=== PATIENT | female | born 1940 | race Caucasian/White ===

== ENCOUNTER → 2018-08-02 07:45 | Outpatient (CLI) | payer MEDICARE, OTHER, SELFPAY ==
--- NOTE | 2018-08-02 08:00 | US_ITS ---
US liver HISTORY: ITS.REASON: ELEVATED LIVER ENZYMES ORDERING PHYSICIAN: Jazmine Ceja PATIENT AGE: 78 years COMPARISON: None FINDINGS: PANCREAS:Unremarkable. No obvious mass or abnormal fluid collection. No ductal dilatation LIVER:No focal liver lesions demonstrated. Homogeneous echogenicity. No intrahepatic biliary ductal dilatation evident. There is appropriate direction of blood flow within a nondilated portal vein RIGHT KIDNEY:Unremarkable. Normal size and echogenicity. No hydronephrosis GALLBLADDER:There are gallstones present. No gallbladder wall thickening, pericholecystic fluid, or biliary dilatation evident. Common bile duct is 3 mm. IMPRESSION: Cholelithiasis
== END ==
PROVIDERS: PCP Nurse Practitioner Family; Visit Provider Nurse Practitioner Family
DX: R74.8 Abnormal levels of other serum enzymes (principal)
CPT/HCPCS: 76705

== ENCOUNTER → 2018-11-03 07:51 | Outpatient (CLI) | payer MEDICARE, OTHER, SELFPAY | PROVIDERS: Visit Provider Nurse Practitioner Family | DX: R30.0 Dysuria (principal) | CPT/HCPCS: 87086 ==

== ENCOUNTER → 2018-12-07 08:24 | Outpatient (CLI) | payer MEDICARE, OTHER, SELFPAY ==
--- NOTE | 2018-12-07 08:29 | US_ITS ---
US abdomen limited History:Right upper quadrant abdominal pain and tenderness Ordering Physician:Jazmine Ceja APRN Patient Age: 78 years Comparison:None Findings: Pancreas:Unremarkable. No obvious mass or abnormal fluid collection. No ductal dilatation Liver:Unremarkable. No obvious mass or abnormal fluid collection. No ductal dilatation Right Kidney:Unremarkable. Normal size and echogenicity. No hydronephrosis Gallbladder:Gallbladder is contracted with thickened wall. Small stones are present within the gallbladder. No pericholecystic fluid or biliary dilatation evident. Impression:Cholelithiasis with contracted gallbladder with mildly thickened gallbladder wall.
== END ==
PROVIDERS: PCP Nurse Practitioner Family; Visit Provider Nurse Practitioner Family
DX: R10.11 Right upper quadrant pain (principal); R10.811 Right upper quadrant abdominal tenderness
CPT/HCPCS: 76705

== ENCOUNTER → 2019-04-12 11:03 | Outpatient (POV) | payer MEDICARE, OTHER, SELFPAY ==
[2019-04-12 11:28] VITALS: BP 148/64; PULSE 73; RESP 22; O2SAT 96; BMI 25.7
--- NOTE | 2019-04-12 11:45 | HMH.PMCON ---
Assessment and Plan (1) Compression fracture of L1 vertebra Current visit: Yes Status: Acute Category: Medical Code(s): S32.010A - Wedge compression fracture of first lumbar vertebra, initial encounter for closed fracture We will give the patient a back brace today. We will seek approval for her to be off of her Eliquis for 5 days. We also seek approval for a L1 kyphoplasty. HPI - Data of Consult Patient: new to practice Consult date: 04/12/19 Requesting Physician: Roberto Poon MD Primary Care Provider: Giovani Barajas MD - Consult Narrative Reason for consult: New L1 compression fracture History of present illness: Ms. Ly is a 78 year old female who presents today with a L1 compression fracture. She fell on Wednesday and had a CT scan at [facility] which showed a mild acute compression fracture of the L1 vertebral body. She has increasing back pain since then. She is on Eliquis she is okay by her primary care physician to come off of her Eliquis. Since her CT scan does show a L1 compression fracture and she is unable to have an MRI because of a pacemaker I believe she would benefit from kyphoplasty to the L1 vertebral body. CC: Roberto Poon MD [facility] History I have reviewed the patient's past medical history: Yes Medical History: Reports:: Arrhythmia, Internal Pacemaker Denies:: Cancer, Diabetes Mellitus Type 1, Diabetes Mellitus Type 2, MRSA *Have you ever received a pneumonia vaccine?: No *Have you received a flu vaccine this season?: No Other Surgeries: Yes: Pacemaker Amputation: No Fractures: No - *Social History Alcohol Intake: never *Occupational Status:: retired Housing: house Household Members: other *Travel in the last 8 weeks: None Family Hx:: No significant family history Review of Systems - *Musculoskeletal Reports back pain Meds Home Medications Medication Instructions Recorded Confirmed Type Apixaban [Eliquis 5mg tab] 2.5 mg PO DAILY 04/09/19 04/12/19 History Escitalopram Oxalate 20 mg PO DAILY 04/09/19 04/12/19 History Furosemide [Furosemide 40MG tAB] 40 mg PO BID 04/09/19 04/12/19 History Omeprazole [Omeprazole 40mg 40 mg PO DAILY 04/09/19 04/12/19 History Capsule] Potassium Chloride [Klor-Con M10] 10 meq PO BID 04/09/19 04/12/19 History Sertraline HCl 25 mg PO DAILY 04/09/19 04/12/19 History Oxycodone HCl/Acetaminophen 1 tab PO Q6H PRN 04/12/19 04/12/19 History [Percocet 5/325mg tablet] Allergies Allergy/AdvReac Type Severity Reaction Status Date / Time No Known Allergies Allergy Verified 04/12/19 11:29 Objective Vital signs: Pulse Resp BP Pulse Ox 73 22 148/64 H 96 04/12/19 11:28 04/12/19 11:28 04/12/19 11:28 04/12/19 11:28 - Routine Back/Spine/Pelvis Exam Back/Spine: Present: vertebral tenderness Opioid Risk Tool - CAGE-AID Questionaire Do you feel a need to increase medication use?: No Are you annoyed by criticism?: No Do you feel guilty for using substances?: No Do you use substances to calm or relieve a hangover?: No - Opioid Risk Tool-Female Family hx alcohol abuse: N Family hx illegal drugs: N Family hx rx drug abuse: N Personal hx alcohol abuse: N Personal hx illegal drugs: N Personal hx rx drug abuse: N Age: 45+ Hx of sexual abuse: N Mental health issues-ADD,OCD,Bipolar, etc: N Hx of depression: Y Female Risk Score: 1
--- NOTE | 2019-04-12 11:48 | P.CONS_ITS ---
Assessment and Plan (1) Compression fracture of L1 vertebra Current visit: Yes Status: Acute Category: Medical Code(s): S32.010A - Wedge compression fracture of first lumbar vertebra, initial encounter for closed fracture We will give the patient a back brace today. We will seek approval for her to be off of her Eliquis for 5 days. We also seek approval for a L1 kyphoplasty. HPI - Data of Consult Patient: new to practice Consult date: 04/12/19 Requesting Physician: Roberto Poon MD Primary Care Provider: Giovani Barajas MD - Consult Narrative Reason for consult: New L1 compression fracture History of present illness: Ms. Ly is a 78 year old female who presents today with a L1 compression fracture. She fell on Wednesday and had a CT scan at [facility] which showed a mild acute compression fracture of the L1 vertebral body. She has increasing back pain since then. She is on Eliquis she is okay by her primary care physician to come off of her Eliquis. Since her CT scan does show a L1 compression fracture and she is unable to have an MRI because of a pacemaker I believe she would benefit from kyphoplasty to the L1 vertebral body. CC: Roberto Poon MD [facility] History I have reviewed the patient's past medical history: Yes Medical History: Reports:: Arrhythmia, Internal Pacemaker Denies:: Cancer, Diabetes Mellitus Type 1, Diabetes Mellitus Type 2, MRSA *Have you ever received a pneumonia vaccine?: No *Have you received a flu vaccine this season?: No Other Surgeries: Yes: Pacemaker Amputation: No Fractures: No - *Social History Alcohol Intake: never *Occupational Status:: retired Housing: house Household Members: other *Travel in the last 8 weeks: None Family Hx:: No significant family history Review of Systems - *Musculoskeletal Reports back pain Meds Home Medications Medication Instructions Recorded Confirmed Type Apixaban [Eliquis 5mg tab] 2.5 mg PO DAILY 04/09/19 04/12/19 History Escitalopram Oxalate 20 mg PO DAILY 04/09/19 04/12/19 History Furosemide [Furosemide 40MG tAB] 40 mg PO BID 04/09/19 04/12/19 History Omeprazole [Omeprazole 40mg 40 mg PO DAILY 04/09/19 04/12/19 History Capsule] Potassium Chloride [Klor-Con M10] 10 meq PO BID 04/09/19 04/12/19 History Sertraline HCl 25 mg PO DAILY 04/09/19 04/12/19 History Oxycodone HCl/Acetaminophen 1 tab PO Q6H PRN 04/12/19 04/12/19 History [Percocet 5/325mg tablet] Allergies Allergy/AdvReac Type Severity Reaction Status Date / Time No Known Allergies Allergy Verified 04/12/19 11:29 Objective Vital signs: Pulse Resp BP Pulse Ox 73 22 148/64 H 96 04/12/19 11:28 04/12/19 11:28 04/12/19 11:28 04/12/19 11:28 - Routine Back/Spine/Pelvis Exam Back/Spine: Present: vertebral tenderness Opioid Risk Tool - CAGE-AID Questionaire Do you feel a need to increase medication use?: No Are you annoyed by criticism?: No Do you feel guilty for using substances?: No Do you use substances to calm or relieve a hangover?: No - Opioid Risk Tool-Female Family hx alcohol abuse: N Family hx illegal drugs: N Family hx rx drug abuse: N Personal hx alcohol abuse: N Personal hx illegal drugs: N Personal hx rx drug abuse: N Age: 45+ Hx of sexual a
== END ==
PROVIDERS: PCP Internal Medicine Adolescent Medicine; Visit Provider Anesthesiology
DX: S32.010A Wedge compression fracture of first lumbar vertebra, initial encounter for closed fracture (principal)
CPT/HCPCS: 99202

== ENCOUNTER → 2019-05-08 11:00 | Outpatient (POV) | payer MEDICARE, OTHER, SELFPAY ==
[2019-05-08 11:22] VITALS: BP 115/82; PULSE 94; RESP 18; O2SAT 98; BMI 37.6
--- NOTE | 2019-05-08 11:29 | HMH.PAINSOAP ---
[facility] Pain Management SOAP Note Subjective:: Patient is a pleasant 78-year-old white female who presents today for follow-up after an L1 compression fracture with kyphoplasty. Patient says she fell in her home and hit a TV with her spine. She says she developed severe back pain following the fall. She underwent a kyphoplasty for the fracture. She rates her pain a 10 out of 10 today. Patient was on Eliquis and did hold her anticoagulation for 5 days. Patient is continuing to wear her back brace and does have it on today. She says that her pain is in her low back area. She denies any recent trauma or falls. She says the pain is worse with standing and walking. She says the pain is a different type of pain than what she was experiencing with her first visit. She says her pain is somewhat relieved when she is sitting. Patient also complains of severe nausea and vomiting since her kyphoplasty. She says she is been unable to keep any food down over the last couple of days. She is unable to follow-up with her primary care provider until May 17. She is attempting a home stretching program, but says that her pain is severe. Review of Systems General: No recent weight changes, no fever, no sleep disturbances Respiratory: No cough, no shortness of air, no recurring pulmonary infections Cardiovascular/peripheral vascular: No chest pain, no palpitations, no edema, no shortness of breath Gastrointestinal: No new onset incontinence, normal bowel movements reported Genitourinary: No new onset incontinence Musculoskeletal: Low back pain Psychiatric: Normal mood/affect Neurological: [Denies weakness in extremities], [denies balance issues] Objective:: Physical exam General: Alert and oriented x3, no acute distress, pleasant and cooperative, [on room air] Lungs: Respirations even and unlabored, symmetrical chest expansion Eyes: PERRL Musculoskeletal: Flexion and extension of lumbar spine somewhat guarded secondary to pain, deep tendon reflexes normal, strength in upper and lower extremities [5/5], [abnormal gait noted] Neurological: Speech clear, mat linker equal, no gross sensory deficit Assessment:: L1 compression fracture, low back pain Plan:: Given the patient's symptoms, I think she would benefit from an L4-L5 lumbar epidural steroid injection. She is on anticoagulation therapy. She does understand she will need to hold Eliquis. She is in agreement. The patient was able to hold the medication for the kyphoplasty per her clinical analyst. She will continue with a home stretching program. We will see her back in the clinic following the steroid injection to reassess her symptoms. The patient has been instructed to contact the clinic if she has any concerns before her next appointment. We will also order the patient Zofran 4 mg 1 tablet p.o. twice daily for [address] Poon has reviewed this note and agrees with this plan of care. This note was dictated using voice recognition software and make contain errors or omissions. [facility] History I have reviewed the patient's past medical history: Yes Medical History: Reports:: Anxiety, Arrhythmia, Asthma, Depression, Gastroesophageal Reflux Disease(GERD), Hyperlipidemia, Hypertension, Internal Pacemaker (AICD) Denies:: Cancer, Diabetes Mellitus Type 1, Diabetes Mellitus Type 2, MRSA, Seizures *Have you ever received a pneumonia vaccine?: Yes *Have you received a flu vaccine this season?: Yes Other Medical History: Denies: Blood Transfusion Reaction Other Surgeries: Yes: Pacemaker (AICD) Amputation: No Fractures: Yes - *Social History Smoking Status: Never smoker Alcohol Intake: never Substance Use Type: denies use *Occupational Status:: other Housing: house Household Members: other *Travel in the last 8 weeks: None - Psychiatric History Pschychiatric History:: Reports:: Anxiety, Depression Family Hx:: Non-contributory
== END ==
PROVIDERS: PCP Internal Medicine Adolescent Medicine; Visit Provider Clinical Nurse Specialist Family Health
DX: S32.010A Wedge compression fracture of first lumbar vertebra, initial encounter for closed fracture (principal)
CPT/HCPCS: 99212

== ENCOUNTER → 2019-06-05 14:02 | Outpatient (POV) | payer MEDICARE, OTHER, SELFPAY ==
[2019-06-05 14:34] VITALS: BP 121/75; PULSE 114; RESP 18; O2SAT 99; BMI 23.8
--- NOTE | 2019-06-05 15:46 | HMH.PAINSOAP ---
[facility] Pain Management SOAP Note Subjective:: Patient is a pleasant 79-year-old white female who presents today for follow-up. Patient had a compression fracture which was treated with a kyphoplasty. Patient still having 10 out of 10 pain. Patient has had epidural injections with no relief. Patient and I had an extremely long discussion in regards to intrathecal pain pump therapy and she would like to move forward with this. Patient's not on any anticoagulation therapy. We will obtain a psych evaluation in regards to her pain. Patient is trying to stay as mobile as possible. She is continuing to wear her back brace and continuing physical therapy. ROS General: no recent weight change, no fever, no sleep disturbances Respiratory: no cough, no shortness of air, no recurring pulmonary infections Cardiovascular/Peripheral Vascular: No chest pain, No palpitations, no edema, no shortness of breath. Gastrointestinal: no new onset incontinence, normal bowel movements reported Genitourinary: no new onset incontinence Musculoskeletal: Back pain Psychiatric: Flat affect Neurological: [denies new onset weakness in extremities], [denies new onset balance issues] Objective:: Physical Exam General: Alert and oriented x3, no acute distress, pleasant and cooperative, [on room air] Lungs: Resps E/U, Symmetrical chest expansion, Eyes: PERRL Musculoskeletal: Flexion and extension of lumbar spine somewhat guarded secondary to pain, deep tendon reflexes normal, strength in upper and lower extremities [5/5], [abnormal gait noted] Neurological: speech clear, roaster helper equal, no gross sensory deficits Assessment:: Chronic compression fractures, osteoporosis, degenerative disc disease Plan:: We will send her for psychological evaluation to determine if she is a candidate for intrathecal therapy. We will move forward with an intrathecal pain pump trial soon as possible. I will follow-up with her after this reassess her symptoms at that time she has been instructed to call the office if she has any issues or questions. Patient was given literature in regards to the therapy. Dr. Poon has reviewed this note and agrees with this plan of care. This note was dictated using voice recognition software and may contain errors or omissions [facility] History I have reviewed the patient's past medical history: Yes Medical History: Reports:: Anxiety, Arrhythmia, Asthma, Depression, Gastroesophageal Reflux Disease(GERD), Hyperlipidemia, Hypertension, Internal Pacemaker (AICD) Denies:: Cancer, Diabetes Mellitus Type 1, Diabetes Mellitus Type 2, MRSA, Seizures *Have you ever received a pneumonia vaccine?: Yes *Have you received a flu vaccine this season?: Yes Other Medical History: Denies: Blood Transfusion Reaction Other Surgeries: Yes: Pacemaker (AICD) Amputation: No Fractures: No - *Social History Smoking Status: Never smoker Alcohol Intake: never Substance Use Type: denies use *Occupational Status:: other Housing: house Household Members: other *Travel in the last 8 weeks: None - Psychiatric History Pschychiatric History:: Reports:: Anxiety, Depression Family Hx:: No significant family history
== END ==
PROVIDERS: PCP Internal Medicine Adolescent Medicine; Visit Provider Clinical Nurse Specialist Family Health
DX: Z95.0 Presence of cardiac pacemaker (principal); M81.0 Age-related osteoporosis without current pathological fracture; E78.5 Hyperlipidemia, unspecified; I10 Essential (primary) hypertension; J45.909 Unspecified asthma, uncomplicated; S32.010A Wedge compression fracture of first lumbar vertebra, initial encounter for closed fracture
CPT/HCPCS: 99212

== ENCOUNTER → 2019-07-12 12:56 | Outpatient (CLI) | payer MEDICARE, OTHER, SELFPAY ==
--- NOTE | 2019-07-12 12:59 | CT_ITS ---
PROCEDURE: CT CHEST WO CON CLINICAL INDICATION: LUNG NODULE Lung nodule COMPARISON: CT ABDOMEN PELVIS W CON from 04/16/2019 TECHNIQUE: Axial images obtained with sagittal and coronal reformats. All CT scans at the facility use one or more dose reduction, viz: automated exposure control, ma/kV adjustment per patient size (including targeted exams where dose is matched to indication, i.e. head), or iterative reconstruction technique. FINDINGS: HEART AND MEDIASTINAL STRUCTURES: Cardiac pacemaker device is. There are few scattered small mediastinal nodes. There is a right paraesophageal node 1.1 cm. Previously noted thickened esophagus has somewhat improved. There is mild thickening of the esophagus at the GE junction with small hiatal hernia. LUNGS AND PLEURAL SPACES: There are numerous small noncalcified pulmonary nodules which are 4 mm or less the. There is a 12 mm nodule in the left lower lobe posteriorly with central cavitation not significantly changed. There is a lingular nodule which appears partially calcified. No effusions. No infiltrates BONY STRUCTURES: There wedge compressive changes involving L1 with increased density along the lower aspect consistent with prior vertebroplasty. UPPER ABDOMEN: There are gallstones present with at least 2 stones noted in the region of the neck of the gallbladder ADDITIONAL FINDINGS: No other significant abnormalities. IMPRESSION: 1. Interval improvement in esophageal thickening with some residual thickening at the GE junction with a small hiatal hernia. No change in the mildly prominent right paraesophageal lymph node 2. Scattered small pulmonary nodules. 12 mm nodule with central cavitation in the left lower lobe posteriorly not significantly changed. Suggest 6 month follow-up 3. Cholelithiasis Dictated by: Kelvin Sanders MD 07/13/2019 11:32 Electronically signed by Kelvin Sanders MD in [place] 07/13/2019 11:32
== END ==
PROVIDERS: PCP Internal Medicine Adolescent Medicine; Visit Provider Internal Medicine Adolescent Medicine
DX: R91.1 Solitary pulmonary nodule (principal)
CPT/HCPCS: 71250

== ENCOUNTER → 2019-09-18 13:20 | Outpatient (CLI) | payer MEDICARE, OTHER, SELFPAY ==
[2019-10-10 16:08] LABS: Covid-19 Nasal PCR Sendout Lex NOT DETECTED
== END ==
PROVIDERS: Visit Provider Anesthesiology
DX: Z03.818 Encounter for observation for suspected exposure to other biological agents ruled out (principal)
CPT/HCPCS: U0004

== ENCOUNTER 2019-09-20 09:17 | Day surgery (SDC) | payer MEDICARE, OTHER, SELFPAY ==
[2019-09-20] VITALS (7 sets, daily range): BP systolic 107–156; BP diastolic 70–99; PULSE 85–113; RESP 18–20; O2SAT 94–98; BMI 28.0
--- NOTE | 2019-09-20 10:32 | HMH.PMPROC ---
- Procedure Date: 09/20/19 Time: 10:32 Anesthesiologist:: Roberto Poon MD Complications:: None Pre-procedure Diagnosis:: Degenerative disc disease of lumbar spine with lumbar radiculopathy symptoms and compression fractures of the lumbar spine Post-procedure Diagnosis:: Same Indications for Procedure:: Patient is a pleasant 79-year-old white female who we are treating for low back pain with lumbar radicular symptoms and compression fracture stress lumbar spine. She has failed all previous conservative therapy including injections she has had a previous kyphoplasty however she still has compression fractures throughout the lumbar spine. She has had a successful psychological evaluation. We will do a intrathecal pump trial today to help her with her continued back pain. Procedure Details:: Pain pump trial Informed consent was obtained and the risk and benefits of the procedure was explained to the patient. The patient was taken to the procedure room and placed prone on the procedure table. Patient was prepped and draped in sterile fashion. C-arm fluoroscopy was used to view the lumbar spine. The skin and subcutaneous tissues were anesthetized using lidocaine. I placed a 18-gauge spinal needle into the L4-5 interspace and advanced until clear CSF was obtained. After this intrathecal catheter was inserted and advanced very easily to the L1 vertebral body. The needle was withdrawn. We were able to freely withdraw clear CSF through the catheter. We then injected intrathecal fentanyl single shot bolus of 25 mcg followed by saline and followed by the previous CSF that was withdrawn. The needle and catheter were then removed and a Band-Aid was placed. Patient tolerated the procedure well with no complications. We reevaluated the patient after 30 minutes to 1 hour. She was also reassessed by physical therapy. She had 80 to 90% relief in her pain symptoms. She is much more functional. She did very well she was to proceed with permanent placement. She had no side effects with intrathecal fentanyl. We will plan on permanent placement with intrathecal morphine 5 mg/mL to start at 0.25 mg/day. Plan and Disposition:: Plan and disposition: We will plan on permanent placement the intrathecal pain pump. We will have her see Dr. harley johnson for evaluation of permanent placement. This will be with intrathecal morphine 5 mg per mall to start at 0.25 mg/day. Lead tip will be at the L1 vertebral body.
== END 2019-09-20 11:56 | disposition home or self-care (01) ==
LOC: SC.PAINP 09:20
PROVIDERS: PCP Internal Medicine Adolescent Medicine; Visit Provider Anesthesiology
DX: M51.16 Intervertebral disc disorders with radiculopathy, lumbar region (principal); S32.010A Wedge compression fracture of first lumbar vertebra, initial encounter for closed fracture; I10 Essential (primary) hypertension; J45.909 Unspecified asthma, uncomplicated; F32.9 Major depressive disorder, single episode, unspecified; E78.5 Hyperlipidemia, unspecified; I48.91 Unspecified atrial fibrillation
CPT/HCPCS: 62323

== ENCOUNTER → 2019-09-25 07:58 | Outpatient (CLI) | payer MEDICARE, OTHER, SELFPAY ==
[2019-09-25 08:27] LABS: Basophils % 0.7 % (0.1-2.0); Eosinophils # 0.2 K/mm3 (0.0-0.4); Eosinophils % 3.8 % (0.1-12.0); Hematocrit 43.6 % (37.0-47.0); Hemoglobin 14.5 g/dL (12.2-16.2); Lymphocytes # 2.2 K/mm3 (0.7-4.5); Lymphocytes % 42.7 % (10-50); Mean Corpuscular HGB Conc 33.1 g/dL (31.8-35.4); Mean Corpuscular Hemoglobin 28.6 pg (27.0-31.2); Mean Corpuscular Volume 86.3 fl (81-99); Mean Platelet Volume 7.5 fl (7.4-10.4); Monocytes # 0.4 K/mm3 (0.1-1.0); Neutrophils # 2.4 K/mm3 (1.8-7.8); Neutrophils % 45.8 % (37.0-80.0); Platelet Count 216 K/mm3 (142-424); Red Blood Count 5.05 M/mm3 (4.20-5.40); Red Cell Distribution Width 13.4 % (11.5-17.5); White Blood Count 5.2 K/mm3 (4.8-10.8)
[2019-09-25 08:58] LABS: Chloride 105 mmol/L (98-107); Potassium 3.8 mmoL/L (3.5-5.1); Sodium 138 mmol/L (136-145)
[2019-09-25 09:01] LABS: Anion Gap 13.8 mEq/L (5-15); Blood Urea Nitrogen 16 mg/dl (7-17); Carbon Dioxide 23 mmol/L (22.0-30.0); Estimated Glomerular Filt Rate 70 ml/min (>60); GFR (African American) 84 ML/MIN (>60); Glucose 95 mg/dl (74-100)
[2019-09-27 11:01] LABS: Covid-19 Nasal PCR Sendout Lex NOT DETECTED
== END ==
PROVIDERS: Visit Provider Anesthesiology
DX: Z01.818 Encounter for other preprocedural examination (principal); M51.36 Other intervertebral disc degeneration, lumbar region
CPT/HCPCS: 36415; 80048; 85025; U0004

== ENCOUNTER 2019-09-27 09:48 | Day surgery (SDC) | payer MEDICARE, OTHER, SELFPAY ==
--- NOTE | 2019-09-22 13:15 | SUR.PREOP ---
09/22/2019 @ 6279--PHONE CALL MADE TO PATIENT. PATIENT UNDERSTANDS THAT LAB WORK AND COVID TESTING NEEDS TO BE COMPLETED @ 0800 ON 09/25/2019. PATIENT UNDERSTANDS IF LAB WORK AND COVID-19 TESTS ARE NOT COMPLETED BY 12PM ON THAT DATE, THE SURGERY SCHEDULED WILL BE CANCELLED AND RESCHEDULED FOR ANOTHER TIME.
[2019-09-27] VITALS (9 sets, daily range): BP systolic 121–152; BP diastolic 65–92; PULSE 83–131; RESP 16–18; TEMP 36.8–37.1; O2SAT 93–94; BMI 28.0
--- NOTE | 2019-09-27 12:20 | HMH.PMCON ---
Assessment and Plan - Assessment and plan all Dx Assessment and Plan for all problems:: Impression-degenerative disc disease lumbar spine with radiculopathy, multiple compression fractures Plan-placement of intrathecal pain pump system today HPI - Data of Consult Patient: new to practice Consult date: 09/27/19 Requesting Physician: Roberto Poon MD Primary Care Provider: Giovani Barajas MD - Consult Narrative Reason for consult: Back pain History of present illness: Ms. Ly is a 79 year old female with chronic back pain who is also had compression fractures who is had attempts at back pain improvement over the years. He had a intrathecal pain pump trial with success and she is coming in for placement of that system CC: Roberto Poon MD [facility] History Medical History: Reports:: Anxiety, Arrhythmia, Asthma, Depression, Gastroesophageal Reflux Disease(GERD), Hyperlipidemia, Hypertension, Internal Pacemaker Denies:: Cancer, Diabetes Mellitus Type 1, Diabetes Mellitus Type 2, MRSA, Seizures *Have you ever received a pneumonia vaccine?: Yes *Have you received a flu vaccine this season?: Yes Other Medical History: Denies: Blood Transfusion Reaction Comment:: Illnesses-GERD, depression, asthma, irregular heartbeat, degenerative disc disease lumbar spine Other Surgeries: Yes: Pacemaker Amputation: No Fractures: Yes (lumbar) Comment: Pacemaker, ileal conduit, hysterectomy - *Social History Educational Level: Completed Grade School Smoking Status: Never smoker Alcohol Intake: never Substance Use Type: denies use *Occupational Status:: retired Housing: house Household Members: family *Travel in the last 8 weeks: None - Psychiatric History Pschychiatric History:: Reports:: Anxiety, Depression Family Hx:: No significant family history Review of Systems - Review of Systems Review of systems:: pertinent systems reviewed and negative unless documented below Meds Home Medications Medication Instructions Recorded Confirmed Type Apixaban [Eliquis 5mg tab] 2.5 mg PO DAILY 04/09/19 09/27/19 History Escitalopram Oxalate 20 mg PO DAILY 04/09/19 09/27/19 History Furosemide [Furosemide 40MG tAB] 40 mg PO BID 04/09/19 09/27/19 History Omeprazole [Omeprazole 40mg 40 mg PO DAILY 04/09/19 09/27/19 History Capsule] Potassium Chloride [Klor-Con M10] 10 meq PO BID 04/09/19 09/27/19 History Sertraline HCl 25 mg PO DAILY 04/09/19 09/27/19 History Oxycodone HCl/Acetaminophen 1 tab PO Q6H PRN 04/12/19 09/27/19 History [Percocet 5/325mg tablet] Psyllium Husk/Aspartame [Metamucil 3.4 gm PO BID 04/21/19 09/27/19 History Fiber Singles Packet] Allergies Allergy/AdvReac Type Severity Reaction Status Date / Time No Known Allergies Allergy Verified 09/26/19 09:35 Objective Vital signs: Temp Pulse Resp BP Pulse Ox 98.2 F 93 H 18 150/71 H 94 L 09/27/19 10:49 09/27/19 10:49 09/27/19 10:49 09/27/19 10:49 09/27/19 10:49 no acute distress Comments: Elderly white female in no distress - *Routine Respiratory Exam Present: decreased breath sounds, CTA bilaterally - *Routine Cardiovascular Exam Present: RRR - *Routine Abdominal Exam Present: soft
--- NOTE | 2019-09-27 13:05 | HMH.ANESCL ---
[facility] Anesthesia Checklist - Patient Identification Patient Identification: Arm Band, Verbal (Name & ) - Structural Data Admitted From: Home Planned Operative Procedure/s: Placement of IT pain pump generator and catheter Consent for Planned Operative Procedure(s) Verified: Yes Verified Documents: Surgical Consent, History and Physical - NPO Status Verified Time NPO: 18:00 - Chart Verification Results Verified: CBC (Covid negative), BMP - Additional verifications Anesthesia Reactions: No Hx Blood Transfusions: No Blood Transfusion Reaction: No - Airway Assessment C-Spine Mobility Assessed: Yes (limited neck ROM) TMJ Mobility Assessed: Yes Dentition: Edentulous - Neurological Assessment Level of Consciousness: Awake, Alert, Appropriate, Follows Commands Hx Seizures: No Numbness or tingling in extremities: No - Anesthesia Plan Anesthesia Risk discussed: Yes Anesthesia Plan: Verified ASA Class: III Anesthesia Type: MAC [facility] History I have reviewed the patient's past medical history: Yes Medical History: Reports:: Anxiety, Arrhythmia, Asthma, Depression, Gastroesophageal Reflux Disease(GERD), Hyperlipidemia, Hypertension, Internal Pacemaker Denies:: Cancer, Diabetes Mellitus Type 1, Diabetes Mellitus Type 2, MRSA, Seizures *Have you ever received a pneumonia vaccine?: Yes *Have you received a flu vaccine this season?: Yes Other Medical History: Denies: Blood Transfusion Reaction Comment:: Chronic back pain, YESENIA Anesthesia experience/problems:: none Other Surgeries: Yes: Hysterectomy-Total, Pacemaker, Other (lumbar sx) Amputation: No Fractures: Yes (lumbar) - *Social History Educational Level: Completed Grade School Smoking Status: Never smoker Alcohol Intake: never Substance Use Type: denies use *Occupational Status:: retired Housing: house Household Members: family *Travel in the last 8 weeks: None - Psychiatric History Pschychiatric History:: Reports:: Anxiety, Depression Family Hx:: No significant family history
--- NOTE | 2019-09-27 13:54 | ECG_ITS ---
APPROVED REPORT Exam: Resting ECG HR:115 bpm ECG Measurements Heart Rate 115 AXES QRSd 62 QRS 96 QT 314 T 106 QTc 434 <Conclusion> Atrial fibrillation with rapid ventricular response with premature ventricular or aberrantly conducted complexes Rightward axis Low voltage QRS Cannot rule out Anterior infarct, age undetermined Abnormal ECG Electronically signed by : Giovani Barajas, 09/28/2019 21:39:38
--- NOTE | 2019-09-27 14:25 | CA_ITS ---
APPROVED REPORT EXAM: Comprehensive 2D, Doppler, and color-flow Echocardiogram Environmental Health Officer: Palmira Luna RVT Ht: 4 ft 10 in Wt: 134lbs BSA: 1.54 BP: 134/85 mmHg Indications: A-FIB,HTN,HLD,PACER,GERD,ASTHMA 2D Dimensions LVOT 1.86 cm (M/F) 1.5-2.5 M-Mode Dimensions RVDd 2.01 cm (0.9-2.6) LVDd 4.08 cm (3.5-5.7) LVDs 2.94 cm (3.5-5.7) IVSd 0.61 cm (0.6-1.1) PWd 0.47 cm (0.6-1.1) EF (Teich) 54.60% FS 27.90% EDV (Teich) 73.40 mL ESV (Teich) 33.30 mL Left Ventricle Left atrium is mildly enlarged, left ventricle is normal size, mild concentric left ventricular hypertrophy, there is abnormal septal motion, visually estimated ejection fraction 50% with no regional wall motion abnormality, diastolic parameters are inconclusive. Right Ventricle Right atrium and right ventricle are normal size and contractility, there is a pacemaker lead seen in the right atrium and right ventricle. Aortic Valve Aortic valve is minimally thickened and fibrosed, leaflet continue to display mobility. Mitral Valve Mitral valve leaflets are minimally thickened, there is no mitral stenosis. There is mild mitral regurgitation. Tricuspid Valve Tricuspid valve is grossly normal, there is mild tricuspid regurgitation, tricuspid regurgitation jet velocity is inadequate for calculation of the right ventricular systolic pressure. Pulmonic Valve Pulmonic valve is poorly visualized. Great Vessels Aortic root is normal size. Pericardium No significant pericardial effusion noted. Conclusion 1. Mildly enlarged left atrium, normal left ventricular size, mild concentric left ventricular hypertrophy, visually estimated ejection fraction 50%, there is abnormal septal motion. Diastolic parameters are inconclusive. 2. Mild mitral and tricuspid regurgitation. 3. No significant pericardial effusion noted. Electronically signed by : Mahamed Bryan, 09/28/2019 13:57:40
--- NOTE | 2019-09-27 14:27 | HMH.PAINSOAP ---
[facility] Pain Management SOAP Note Subjective:: Patient was taken to the OR and found to be in atrial fibrillation with a rapid ventricular response of heart rate of 130s to 140s. Surgery was canceled. Patient has been off of her Eliquis since last Wednesday. She was brought to recovery and cardiology was consulted. Plan:: We will consult cardiology and postpone her surgery until she is more stable. She can restart her Eliquis. [facility] History Medical History: Reports:: Anxiety, Arrhythmia, Asthma, Depression, Gastroesophageal Reflux Disease(GERD), Hyperlipidemia, Hypertension, Internal Pacemaker Denies:: Cancer, Diabetes Mellitus Type 1, Diabetes Mellitus Type 2, MRSA, Seizures *Have you ever received a pneumonia vaccine?: Yes *Have you received a flu vaccine this season?: Yes Other Medical History: Denies: Blood Transfusion Reaction Anesthesia experience/problems:: none Other Surgeries: Yes: Hysterectomy-Total, Pacemaker, Other (lumbar sx) Amputation: No Fractures: Yes (lumbar) - *Social History Educational Level: Completed Grade School Smoking Status: Never smoker Alcohol Intake: never Substance Use Type: denies use *Occupational Status:: retired Housing: house Household Members: family *Travel in the last 8 weeks: None - Psychiatric History Pschychiatric History:: Reports:: Anxiety, Depression Family Hx:: No significant family history
--- NOTE | 2019-09-27 14:36 | SUR.PHASEII ---
REPORT GIVEN TO LULY TEJADA RN.
--- NOTE | 2019-09-27 15:04 | SUR.PHASEII ---
1354 - R ASAD BASKET BOTTOM MACHINE OPERATOR AT BEDSIDE, CASE WAS CANCELLED DUE TO AFIB, ORDERS RECEIVED TO GET EKG FOR AFIB. 1358 RESPIRATORY AT BEDSIDE FOR EKG 1404 - DR COLVIN REVIEWED EKG. ORDERS RECEIVED TO CONSULT CARDIOLOGY FOR AFIB R/V 1408 - CARIOLOGY NOTIFIED OF CONSULT. 1418 - BRITT OLIVAREZ AT BEDSIDE ASSESSING PT. EKG REVIEWED. ORDERS RECEIVED FOR ECHO. R/V 1455 - RADIOLOGY SCHEDULER AT BEDSIDE FOR ECHO 1456 - DR COLVIN NOTIFIED PT WANTING SOMETHING FOR HEADACHE. ORDERS RECEIVED TO CHECK WITH CARDIOLOGY.
--- NOTE | 2019-09-27 15:06 | SUR.PHASEII ---
1502 - BRITT OLIVAREZ NOTIFIED THAT PT WANTING SOMETHING FOR HEADACHE. ORDERS RECEIVED FOR TYLENOL 500MG PO X1 NOW. R/V
--- NOTE | 2019-09-27 15:29 | HMH.CNCARD ---
History of Present Illness Consult date: 09/27/19 Requesting physician: Roberto Poon Consult reason: atrial fibrillation Chief complaint: Palpitations Additional Medical History:: 1. Atrial fibrillation 2. Long-term anticoagulation 3. GERD 4. Hyper lipidemia 5. depression/anxiety 6. chronic pain History of present illness: This is a 79-year-old white female who came into the hospital today to undergo an IT pain pump generator and catheter placement. When they took the patient back to the OR she was found to be in atrial fibrillation with RVR. Her heart rate was in the 130s and 140s. Her surgery was canceled and she was taken to the postop recovery area. The patient does state that she can feel palpitations and her heart racing. She states that this typically happens when she gets anxious. She does have a history of atrial fibrillation. It is unclear whether this is paroxysmal or chronic and she cannot answer that question for me. She does tell me that she takes Eliquis as a blood thinner for her atrial fibrillation. She is not on any rate control medications per the medicine list that she has provided us here at the hospital. Her boyfriend is with her today as well and he is unable to give me any further information. He states that he knows she has atrial fibrillation but he is also unsure whether or not she is chronically in atrial fibrillation or if it just comes and goes. She denies any chest pain or pressure. She denies any shortness of breath or edema. She denies any fever, chills, nausea, vomiting, diarrhea, PND or orthopnea. The patient does see a paramedic supervisor regularly Dr. Ramirez, [facility]. She has been holding her Eliquis for placement of her pain pump. While I am in the room with the patient her heart rate is anywhere from 76 to about 90 bpm and she remains in atrial fibrillation. [facility] [place] History I have reviewed the patient's past medical history: Yes Medical History: Reports:: Anxiety, Arrhythmia, Asthma, Depression, Gastroesophageal Reflux Disease(GERD), Hyperlipidemia, Hypertension, Internal Pacemaker Denies:: Cancer, Diabetes Mellitus Type 1, Diabetes Mellitus Type 2, MRSA, Seizures *Have you ever received a pneumonia vaccine?: Yes *Have you received a flu vaccine this season?: Yes Other Medical History: Denies: Blood Transfusion Reaction Anesthesia experience/problems:: none Other Surgeries: Yes: Hysterectomy-Total, Pacemaker, Other (lumbar sx) Amputation: No Fractures: Yes (lumbar) - *Social History Educational Level: Completed Grade School Smoking Status: Never smoker Alcohol Intake: never Substance Use Type: denies use *Occupational Status:: retired Housing: house Household Members: family *Travel in the last 8 weeks: None - Psychiatric History Pschychiatric History:: Reports:: Anxiety, Depression Family Hx:: No significant family history Meds Home Medications Medication Instructions Recorded Confirmed Type Apixaban [Eliquis 5mg tab] 2.5 mg PO DAILY 04/09/19 09/27/19 History Escitalopram Oxalate 20 mg PO DAILY 04/09/19 09/27/19 History Furosemide [Furosemide 40MG tAB] 40 mg PO BID 04/09/19 09/27/19 History Omeprazole [Omeprazole 40mg 40 mg PO DAILY 04/09/19 09/27/19 History Capsule] Potassium Chloride [Klor-Con M10] 10 meq PO BID 04/09/19 09/27/19 History Sertraline HCl 25 mg PO DAILY 04/09/19 09/27/19 History Oxycodone HCl/Acetaminophen 1 tab PO Q6H PRN 04/12/19 09/27/19 History [Percocet 5/325mg tablet] Psyllium Husk/Aspartame [Metamucil 3.4 gm PO BID 04/21/19 09/27/19 History Fiber Singles Packet] Allergies Allergy/AdvReac Type Severity Reaction Status Date / Time No Known Allergies Allergy Verified 09/26/19 09:35 Review of Systems - Review of Systems Review of systems:: pertinent systems reviewed and negative unless documented below - *Cardiovascular Reports rapid, pounding, or irregular heartbeat - *Musculoskeletal Reports back pain - *Neuro
== END 2019-09-27 16:19 | disposition home or self-care (01) ==
LOC: OR 09:49
PROVIDERS: PCP Internal Medicine Adolescent Medicine; Visit Provider Anesthesiology
DX: M51.16 Intervertebral disc disorders with radiculopathy, lumbar region (principal); S32.010A Wedge compression fracture of first lumbar vertebra, initial encounter for closed fracture; Z53.8 Procedure and treatment not carried out for other reasons; Z79.01 Long term (current) use of anticoagulants; I10 Essential (primary) hypertension; I49.9 Cardiac arrhythmia, unspecified; E78.5 Hyperlipidemia, unspecified; I48.91 Unspecified atrial fibrillation; K21.9 Gastro-esophageal reflux disease without esophagitis; Z95.0 Presence of cardiac pacemaker; J45.909 Unspecified asthma, uncomplicated; F41.9 Anxiety disorder, unspecified; R00.2 Palpitations
CPT/HCPCS: 62350; 62362; 93005; 93306; 96374; J2704; J3370

== ENCOUNTER → 2019-10-05 08:52 | Outpatient (POV) | payer MEDICARE, OTHER, SELFPAY ==
--- NOTE | 2019-10-05 09:14 | HMH.PAINSOAP ---
[facility] Pain Management SOAP Note Subjective:: Patient is a pleasant 79-year-old white female who presents today for follow-up. She was scheduled to undergo an intrathecal pain pump implant, however, prior to surgery patient was noted to be in atrial fibrillation with RVR. As a result, surgery was canceled. Patient had been off of her Eliquis prior to the procedure. She was brought to recovery and cardiology was consulted patient is here today because she has been aware that her follow-up appointment will be canceled since surgery was also canceled. Patient says that she is scheduled to follow-up with cardiology today. Patient was started on diltiazem 180 mg 1 tablet p.o. twice daily. She says that she is not having any shortness of breath, no chest pain, no increased heart rate. She says that she feels fine, except for pain.. She rates her pain 8 out of 10. Patient's pain is mostly in her low back area today. Review of Systems General: No recent weight changes, no fever, no sleep disturbances Respiratory: No cough, no shortness of air, no recurring pulmonary infections Cardiovascular/peripheral vascular: No chest pain, no palpitations, no edema, no shortness of breath Gastrointestinal: No new onset incontinence, normal bowel movements reported Genitourinary: No new onset incontinence Musculoskeletal: Low back pain Psychiatric: Normal mood/affect Neurological: [Denies weakness in extremities], [denies balance issues] Objective:: Physical exam General: Alert and oriented x3, no acute distress, pleasant and cooperative, [on room air] Lungs: Respirations even and unlabored, symmetrical chest expansion Eyes: PERRL Musculoskeletal: Flexion and extension of lumbar spine somewhat guarded secondary to pain, deep tendon reflexes normal, strength in upper and lower extremities [5/5], [abnormal gait noted] Neurological: Speech clear, lpn rn hospice equal, no gross sensory deficit Assessment:: Degenerative disc disease lumbar spine with lumbar radiculopathy symptoms Plan:: We will follow-up with the patient after cardiology clears the patient for surgery. We will reviewed cardiology notes and determine a further plan of care. If she is cleared for surgery, we will plan to reschedule the patient in October. Patient has been instructed to contact clinic if she has any concerns before next plan. The patient and I specifically discussed risk factors for COVID19. These risks include, but are not limited to age greater than 60, heart or lung disease, diabetes, immunosuppression, and travel. We also discussed NSAIDs may worsen COVID19 infection or symptoms. Patient should not use NSAIDs to treat COVID19 signs or symptoms. Patient was also informed that any type of corticosteroid of any form (oral or injection) will decrease the patient's immune system response and may increase the likelihood of COVID19 infection and symptoms. [facility] History I have reviewed the patient's past medical history: Yes Medical History: Reports:: Anxiety, Arrhythmia, Asthma, Depression, Gastroesophageal Reflux Disease(GERD), Hyperlipidemia, Hypertension, Internal Pacemaker Denies:: Cancer, Diabetes Mellitus Type 1, Diabetes Mellitus Type 2, MRSA, Seizures *Have you ever received a pneumonia vaccine?: Yes *Have you received a flu vaccine this season?: Yes Other Medical History: Denies: Blood Transfusion Reaction Other Surgeries: Yes: Hysterectomy-Total, Pacemaker, Other (lumbar sx) Amputation: No Fractures: Yes (lumbar) - *Social History Smoking Status: Never smoker Alcohol Intake: never Substance Use Type: denies use *Occupational Status:: retired Housing: house Household Members: family *Travel in the last 8 weeks: Inside the [place] - Psychiatric History Pschychiatric History:: Reports:: Anxiety, Depression Family Hx:: No significant family history
[2019-10-05 09:38] VITALS: BP 152/85; PULSE 71; RESP 18; TEMP 36.6; O2SAT 99; BMI 28.0
== END ==
PROVIDERS: PCP Orthopaedic Surgery Adult Reconstructive Orthopaedic Surgery; Visit Provider Clinical Nurse Specialist Family Health
DX: M51.16 Intervertebral disc disorders with radiculopathy, lumbar region (principal)
CPT/HCPCS: 99212

== ENCOUNTER → 2019-11-21 09:53 | Outpatient (CLI) | payer MEDICARE, OTHER, SELFPAY ==
[2019-11-21 10:19] LABS: Basophils # 0.1 K/mm3 (0-0.2); Basophils % 0.9 % (0.1-2.0); Eosinophils # 0.2 K/mm3 (0.0-0.4); Eosinophils % 2.3 % (0.1-12.0); Hematocrit 41.1 % (37.0-47.0); Hemoglobin 14.2 g/dL (12.2-16.2); Lymphocytes # 3.7 K/mm3 (0.7-4.5); Lymphocytes % 42.6 % (10-50); Mean Corpuscular HGB Conc 34.5 g/dL (31.8-35.4); Mean Corpuscular Hemoglobin 30.6 pg (27.0-31.2); Mean Corpuscular Volume 88.5 fl (81-99); Mean Platelet Volume 7.7 fl (7.4-10.4); Monocytes # 0.4 K/mm3 (0.1-1.0); Monocytes % 4.5 % (1.7-9.3); Neutrophils # 4.4 K/mm3 (1.8-7.8); Neutrophils % 49.8 % (37.0-80.0); Platelet Count 262 K/mm3 (142-424); Red Blood Count 4.65 M/mm3 (4.20-5.40); White Blood Count 8.8 K/mm3 (4.8-10.8)
[2019-11-21 10:34] LABS: Amphetamine/Metha Screen,Urine Negative ng/ml (<1000); Barbiturates Screen,Urine Negative ng/ml (<200)
[2019-11-21 10:35] LABS: Benzodiazepines Screen,Urine Negative ng/ml (<200)
[2019-11-21 10:36] LABS: Cannabinoid Screen,Urine Negative ng/ml (<50); Cocaine Screen,Urine Negative ng/ml (<300)
[2019-11-21 10:37] LABS: Methadone Screen,Urine Negative ng/ml (<300)
[2019-11-21 10:38] LABS: Opiate Screen,Urine Negative ng/ml (<300); Phencyclidine Screen,Urine Negative ng/ml (<25)
[2019-11-21 11:01] LABS: Chloride 101 mmol/L (98-107); Potassium 4.3 mmoL/L (3.5-5.1); Sodium 137 mmol/L (136-145)
[2019-11-21 11:04] LABS: Anion Gap 17.3 mEq/L (5-15); Blood Urea Nitrogen 24 mg/dl (7-17); Calcium 10.5 mg/dl (8.4-10.2); Carbon Dioxide 23 mmol/L (22.0-30.0); Estimated Glomerular Filt Rate 61 ml/min (>60); GFR (African American) 73 ML/MIN (>60); Glucose 96 mg/dl (74-100)
[2019-11-21 13:45] LABS: Coronavirus 19 IgG Antibody Negative (Negative); Coronavirus 19 IgM Antibody Negative (Negative)
== END ==
PROVIDERS: Visit Provider Anesthesiology
DX: Z03.818 Encounter for observation for suspected exposure to other biological agents ruled out; Z79.899 Other long term (current) drug therapy; M51.36 Other intervertebral disc degeneration, lumbar region
CPT/HCPCS: 36415; 80048; 80305; 85025; 86328

== ENCOUNTER 2019-11-22 10:17 | Day surgery (SDC) | payer MEDICARE, OTHER, SELFPAY ==
[2019-11-20 11:47] VITALS: BMI 26.1
[2019-11-22 11:22] VITALS: BP 152/86; PULSE 68; RESP 18; TEMP 36.4; O2SAT 94
--- NOTE | 2019-11-22 14:12 | P.OP_ITS ---
Date of procedure: 11/22/19 Pre-op Diagnosis:: Degenerative disc disease of the lumbar spine with radiculopathy Post-op Diagnosis:: Same Procedure performed:: Placement of pain pump generator Surgeon:: Haseeb Chance MD COORDINATE MEASURING MACHINE TECHNICIAN:: Willem Owen, Giovani León, Mynor Taylor, Berhane Beck, Other Anesthesia: MAC Estimated blood loss (mL): 5 Operative findings:: Not applicable Operative note:: Patient was placed prone on the operating table and her back and flank regions were prepped and draped in sterile fashion. IV sedation via anesthesia and local anesthesia was 1% Xylocaine with epinephrine. Paraspinal incision made by Dr. Yeh which an intrathecal catheter was passed into the intrathecal space to the area desired by Dr. Valentine. Right flank incision was then made under which is made a pocket for placement of the reservoir. Catheter passed to the paraspinal incision to the pocket incision utilizing a tunneling device. Catheter fixed the generator which was placed in the pocket. CSF was aspirated with the generator noting patency of the system.. Both incisions irrigated with antibiotic solution. Generator sutured to the fascia with a 2-0 Prolene suture. Subcutaneous tissues closed with 2-0 Vicryl and skin closed with 4-0 nylon. Patient tolerated the procedure well and was taken to the recovery room in stable condition. Wound VAC dressings and binder also applied prior to transfer to the recovery room. Patient will be discharged home will follow-up in 1 week for removal of the wound VAC dressings and in 2 weeks removal of the sutures. Antibiotics x1 week per protocol. The patient tolerated the procedure well Condition: stable Disposition: PACU Complications:: None
--- NOTE | 2019-11-22 14:12 | P.OP_ITS ---
Date of procedure: 11/22/19 Pre-op Diagnosis:: Degenerative disc disease of the lumbar spine with lumbar radiculopathy symptoms Post-op Diagnosis:: Same Procedure performed:: Review catheter placement with tunneling for permanent intrathecal pain pump Surgeon:: Roberto Poon MD TURNING MACHINE OPERATOR HELPER:: Mynor Taylor Anesthesia: MAC Estimated blood loss (mL): 5 Clinical Note:: The patient is a pleasant 79-year-old white female who we have been treating for low back pain with lumbar radicular symptoms. She has failed all previous conservative therapy including physical therapy, injections, oral medications and she is not a surgical candidate. She has had a successful ecological evaluation. She is also had a successful intrathecal pump trial. She was scheduled for her permanent placement a month ago however at that time she had ventricular fibrillation with rapid ventricular rate. She was seen by her business integration manager. She has been placed on metoprolol. Her heart rate is rate controlled at this time. She has been off of her Eliquis for 3 days. We will plan on permanent placement of intrathecal pain pump today with tunneling of her intrathecal catheter. Operative findings:: None Operative note:: Informed consent was obtained and the risk and benefits of the procedure were explained to the patient. The patient was taken to the operating room placed prone on the procedure table. She was prepped and draped in sterile fashion. C-arm fluoroscopy was used to view the L4-5 and L5-S1 interspace. I a nesthetized the skin and subcutaneous tissues and made an incision dissected down to the lumbar paraspinous fascia. A 14-gauge spinal needle was inserted and advanced into the L5-S1 interspace until clear CSF was obtained. After this intrathecal catheter was inserted and advanced very easily to the L1 vertebral body. The needle and stylette were withdrawn. We were able to freely withdraw clear CSF through the catheter. The catheter was secured to the fascia with 2 anchoring devices and 2-0 Prolene. I prepared the pump with 20 mils of intrathecal morphine 5 mg/mL while Dr. Chance prepared the pump pocket. I tunneled the catheter from the back to the pump pocket and attached the catheter to the pump. Pump was placed in the pump pocket. The pump was secured to the fascia with 2-0 Prolene. The pump was placed in the pump pocket we were able to freely withdraw clear CSF through the side-port. Both incisions were closed with 2-0 Vicryl followed by 4-0 nylon. A wound VAC was placed over both incisions. The patient was placed in an abdominal binder and taken recovery in stable condition. Patient tolerated the procedure well with no complications. Patient was programmed by the [employer] branch customer service representative and was started at 0.25 mg/day of intrathecal morphine. She was discharged home neurologically intact with good relief of pain symptoms. Plan and disposition: We will follow-up with this patient in 1 week for wound check and reprogramming. We will follow-up in 2 weeks for suture removal. Patient can restart her Eliquis tomorrow. If the patient has any problems or questions, she is to call us in the pain clinic. If she experiences any side effects or signs or symptoms of oversedation she is to go to the nearest emergency room and also call us in the pain clinic. Condition: stable Disposition: PACU Complications:: None
[2019-11-22 14:20] VITALS: BP 141/89; PULSE 70; RESP 18; TEMP 36.6; O2SAT 95
--- NOTE | 2019-11-22 14:32 | HMH.ANESCL ---
[facility] Anesthesia Checklist - Patient Identification Patient Identification: Arm Band - Structural Data Admitted From: Home Planned Operative Procedure/s: intrathecal pain pump lead and generator placement Consent for Planned Operative Procedure(s) Verified: Yes Verified Documents: Surgical Consent, History and Physical - NPO Status Verified Time NPO: 00:00 - Additional verifications Anesthesia Reactions: No Hx Blood Transfusions: No Blood Transfusion Reaction: No - Airway Assessment C-Spine Mobility Assessed: Yes (mp2) TMJ Mobility Assessed: Yes Dentition: Edentulous - Neurological Assessment Level of Consciousness: Awake, Alert - Anesthesia Plan Anesthesia Risk discussed: Yes Anesthesia Plan: Verified ASA Class: III Anesthesia Type: MAC [facility] History I have reviewed the patient's past medical history: Yes Medical History: Reports:: Anxiety, Arrhythmia, Asthma, Atrial Fibrillation, Depression, Gastroesophageal Reflux Disease(GERD), Hyperlipidemia, Hypertension, Internal Pacemaker Denies:: Cancer, Diabetes Mellitus Type 1, Diabetes Mellitus Type 2, MRSA, Seizures *Have you ever received a pneumonia vaccine?: Yes *Have you received a flu vaccine this season?: Yes Other Medical History: Denies: Blood Transfusion Reaction Anesthesia experience/problems:: nac Other Surgeries: Yes: Hysterectomy-Total, Pacemaker, Other (lumbar sx) Amputation: No Fractures: Yes (lumbar) - *Social History Last grade of school completed: 7th or 8th Smoking Status: Never smoker Alcohol Intake: never Substance Use Type: denies use *Occupational Status:: disabled Housing: house Household Members: children *Travel in the last 8 weeks: None - Psychiatric History Pschychiatric History:: Reports:: Anxiety, Depression Family Hx:: No significant family history
[2019-11-22 14:35] VITALS: BP 142/85; PULSE 72; RESP 18; O2SAT 96
[2019-11-22 14:50] VITALS: BP 149/82; PULSE 70; RESP 18; O2SAT 95
== END 2019-11-22 14:50 | disposition home or self-care (01) ==
PROVIDERS: PCP Orthopaedic Surgery Adult Reconstructive Orthopaedic Surgery; Visit Provider Anesthesiology
PROC: (CPT 62350; principal; 2019-11-22 12:15)
DX: M51.16 Intervertebral disc disorders with radiculopathy, lumbar region (principal); J45.909 Unspecified asthma, uncomplicated; F41.9 Anxiety disorder, unspecified; F32.9 Major depressive disorder, single episode, unspecified; K21.9 Gastro-esophageal reflux disease without esophagitis; E78.5 Hyperlipidemia, unspecified; I10 Essential (primary) hypertension; Z95.0 Presence of cardiac pacemaker; Z90.710 Acquired absence of both cervix and uterus; Z79.899 Other long term (current) drug therapy
CPT/HCPCS: 62350; 62362; 96374; C1755; C1772; J3370

== ENCOUNTER → 2019-11-30 09:54 | Outpatient (POV) | payer MEDICARE, OTHER, SELFPAY ==
[2019-11-30 10:51] VITALS: BP 142/88; PULSE 87; RESP 18; TEMP 36.6; O2SAT 98; BMI 27.6
--- NOTE | 2019-11-30 13:17 | P.PCN_ITS ---
- Procedure Date: 11/30/19 Time: 13:18 Anesthesiologist:: Chhaya Marin APRN Complications:: None Pre-procedure Diagnosis:: Degenerative disc disease lumbar spine with lumbar radiculopathy symptoms Post-procedure Diagnosis:: Same Indications for Procedure:: Patient is a pleasant 79-year-old white female who presents today for that. She has been treated for low back pain with lumbar radiculopathy symptoms. Patient did have her intrathecal pump November 22, 2019. After having the pump placed, the patient did have a fall at home. She has severe bruising noted over her left orbital area. She did undergo x-rays urgency room and was not noted to have any type of fractures. Patient is having severe pain today. She rates her pain a 10 out of 10 and is accompanied by her daughter today. She is currently on morphine at 0.25 mg/day. She denies having any side effects to the medication or the medication being a contributor to her fall. She says that she stumbled and fell. She would like an increase in her dose today. Patient's Nithin #[id number] has been reviewed and is appropriate. Patient's urine drug screens have been appropriate. Her morphine equivalent is 0. Procedure Details:: Informed consent was obtained and the risk and benefits of the procedure were explained to the patient. Patient was taken to the procedure room where noninv asive monitoring was placed including noninvasive blood pressure cuff and pulse oximeter. Patient's pump was interrogated and was reprogrammed to morphine at 0.3 mg/day. The patient tolerated the procedure well with no complications. Plan and Disposition:: We will plan to see the patient back in the clinic in 2 weeks for suture removal. Her incision is well approximated, no redness, no drainage or edema is noted to the site. Her sutures are intact. Patient daughter does report that the patient did not strike her back with the fall. She only hit her left facial area. She bolus while she was in the clinic of 0.02 mg. She tolerated the bolus without any complications. She says that it did give her some relief. He has been instructed to contact clinic if she has any concerns before next appointment. The patient and I specifically discussed risk factors for COVID19. These risks include, but are not limited to age greater than 60, heart or lung disease, diabetes, immunosuppression, and travel. We also discussed NSAIDs may worsen COVID19 infection or symptoms. Patient should not use NSAIDs to treat COVID19 signs or symptoms. Patient was also informed that any type of corticosteroid of any form (oral or injection) will decrease the patient's immune system response and may increase the likelihood of COVID19 infection [address] symptoms[address] Poon has reviewed this note and agrees with this plan of care. This note was dictated using voice recognition software and make contain errors or omissions.
== END ==
PROVIDERS: PCP Internal Medicine Adolescent Medicine; Visit Provider Clinical Nurse Specialist Family Health
DX: M51.16 Intervertebral disc disorders with radiculopathy, lumbar region (principal); F41.9 Anxiety disorder, unspecified; I49.9 Cardiac arrhythmia, unspecified; F31.9 Bipolar disorder, unspecified; K21.9 Gastro-esophageal reflux disease without esophagitis; I10 Essential (primary) hypertension; E78.5 Hyperlipidemia, unspecified; Z90.710 Acquired absence of both cervix and uterus
CPT/HCPCS: 62368

== ENCOUNTER → 2019-12-14 13:24 | Outpatient (POV) | payer MEDICARE, OTHER, SELFPAY ==
--- NOTE | 2019-12-14 13:52 | P.PCN_ITS ---
- Procedure Date: 12/14/19 Time: 13:53 Anesthesiologist:: Chhaya Marin APRN Complications:: None Pre-procedure Diagnosis:: Degenerative disc disease lumbar spine with lumbar radiculopathy symptoms Post-procedure Diagnosis:: Same Indications for Procedure:: Patient is a 79-year-old white female who presents today for follow-up after intrathecal pain pump implant. She has been treated for low back pain with lumbar radiculopathy symptoms. She had an intrathecal pain pump placed in November. She rates her pain an 8 out of 10 today. She says that her pain is tolerable, however. She is currently on morphine at 0.3 mg/day. She denies any side effects to the medications. She would like an increase in her medication today. Her Nithin #[id number] has been reviewed and is appropriate. Her morphine equivalent is 0. Her urine drug screens have been appropriate. The patient will also have her sutures removed today. Physical exam General: Alert and oriented x3, no acute distress, pleasant and cooperative, [on room air] Lungs: Respirations even and unlabored, symmetrical chest expansion Eyes: PERRL Musculoskeletal: Flexion and extension of lumbar spine somewhat guarded s econdary to pain, deep tendon reflexes normal, strength in upper and lower extremities [5/5], [abnormal gait noted] Neurological: Speech clear, insole and outsole splitter equal, no gross sensory deficit Integumentary: Incision without redness, drainage, or edema. Procedure Details:: Informed consent was obtained and the risk and benefits of the procedure were explained to the patient. Patient was taken to the procedure room where noninvasive monitoring was placed including noninvasive blood pressure cuff and pulse oximeter. Patient's pump was interrogated and was reprogrammed to morp ally at 0.4 mg/day. The patient tolerated the procedure well with no complications. Plan and Disposition:: Patient's sutures were removed today. We will see her back in the clinic in a week to reassess her incision and also assess her pain. After removal of the patient sutures, she was noted to have an area that required Steri-Strips. Her incision did not have any redness, drainage, or edema noted to her site. She was having some increased pain today. She was increased today. We will see her back in the clinic at that time to reassess her symptoms. She has been instructed to contact clinic if she has any concerns for next appointment. The patient and I specifically discussed risk factors for COVID19. These risks include, but are not limited to age greater than 60, heart or lung disease, diabetes, immunosuppression, and travel. We also discussed NSAIDs may worsen COVID19 infection or symptoms. Patient should not use NSAIDs to treat COVID19 signs or symptoms. Patient was also informed that any type of corticosteroid of any form (oral or injection) will decrease the patient's immune system response and may increase the likelihood of COVID19 [address] symptoms[address] Poon has reviewed this note and agrees with this plan of care. This note was dictated using voice recognition software and make contain errors or omissions.
[2019-12-14 14:13] VITALS: BP 118/78; PULSE 63; RESP 18; TEMP 36.6; O2SAT 98; BMI 25.7
== END ==
PROVIDERS: PCP Internal Medicine Adolescent Medicine; Visit Provider Clinical Nurse Specialist Family Health
DX: M51.16 Intervertebral disc disorders with radiculopathy, lumbar region (principal)
CPT/HCPCS: 62368

== ENCOUNTER → 2019-12-21 14:55 | Outpatient (POV) | payer MEDICARE, OTHER, SELFPAY ==
[2019-12-21 15:16] VITALS: BP 125/78; PULSE 74; RESP 18; O2SAT 97; BMI 25.7
--- NOTE | 2019-12-21 15:38 | [facility].PMPROC ---
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 She was recently increased in her intrathecal therapy for increased low back pain. She says that her pain is a 4 out of 10 today, however, she is continuing to have some pain. She is currently on a dose of 0.4 mg a day of her feeding. She would like a slight increase to see if this gives her further relief. She denies any side effects to the medications. Her Nithin #[id number] has been reviewed and is appropriate. Her urine drug screens have been appropriate. Her morphine equivalent is 0. Physical exam General: Alert and oriented x3, no acute distress, pleasant and cooperative, [on room air] Lungs: Respirations even and unlabored, symmetrical chest expansion Eyes: PERRL Musculoskeletal: Flexion and extension of lumbar spine somewhat guarded secondary to pain, deep tendon reflexes normal, strength in upper and lower extremities [5/5], [abnormal gait noted] Neurological: Speech clear, electric container tester equal, no gross sensory deficit Procedure Details:: Informed consent was obtained and the risk and benefits of the procedure were explained to the patient. Patient was taken to the procedure room where noninvasive monitoring was placed including noninvasive blood pressure cuff and pulse oximeter. Patient's pump was interrogated and was reprogrammed to increase to morphine at 0.5 mg/day. The patient tolerated the procedure well with no complications. Plan and Disposition:: We will schedule the patient for a 2-week follow-up to see if her pain has improved after increasing the dose. She has been instructed to contact clinic if she has any concerns before next appointment. The patient and I specifically discussed risk factors for COVID19. These risks include, but are not limited to age greater than 60, heart or lung disease, diabetes, immunosuppression, and travel. We also discussed NSAIDs may worsen COVID19 infection or symptoms. Patient should not use NSAIDs to treat COVID19 signs or symptoms. Patient was also informed that any type of corticosteroid of any form (oral or injection) will decrease the patient's immune system response and may increase the likelihood of COVID19 [address] Poon has reviewed this note and agrees with this plan of care. This note was dictated using voice recognition software and make contain errors or omissions.
== END ==
PROVIDERS: PCP Internal Medicine Adolescent Medicine; Visit Provider Clinical Nurse Specialist Family Health
DX: M51.16 Intervertebral disc disorders with radiculopathy, lumbar region (principal); I48.91 Unspecified atrial fibrillation; I10 Essential (primary) hypertension; E78.5 Hyperlipidemia, unspecified; Z79.01 Long term (current) use of anticoagulants; Z79.899 Other long term (current) drug therapy
CPT/HCPCS: 62368

== ENCOUNTER 2020-02-19 14:28 | Emergency (ER) | payer MEDICARE, OTHER, SELFPAY ==
[2020-02-19 14:29] VITALS: BP 144/81; BP 153/75; PULSE 68; PULSE 73; RESP 17; RESP 20; TEMP 36.7; O2SAT 95; BMI 25.8
--- NOTE | 2020-02-19 14:33 | [facility].EDGENADL ---
ED Disposition Clinical Impression: Fracture, humerus Qualifiers: Encounter type: initial encounter Humerus Location: proximal Fracture type: closed Fracture morphology: other fracture Fracture alignment: nondisplaced Laterality: right Qualified Code(s): S42.294A - Other nondisplaced fracture of upper end of right humerus, initial encounter for closed fracture Disposition: Home, Self-Care Condition on Discharge: Good Instructions: How to Prevent Falls Additional Instructions: Please follow-up with orthopedic surgery. Number provided in handout. Immediately return if any increased pain, decreased range of motion distal to injury, change in color of the right arm, other new concerning symptoms prior to following with orthopedic surgery. Referrals: Giovani Barajas MD [Primary Care Provider] - Nia Howell MD [Physician] - - Critical Care Critical Care Time: No Attestation: On , the high probability of a clinically significant, sudden or life threatening deterioration of the following system(s) required my full and direct attention, intervention and personal management. The time I documented below is in addition to time spent performing reported procedures but includes the following listed in this critical care notation. Medical Decision Making - Medical Records Medical records reviewed: Yes: I reviewed the patient's medical records. - Nithin Inquiry Pt receiving controlled substance: No Vital Signs: 02/19/20 14:29 Temperature 98.1 F Temperature Source Oral Pulse Rate [Right] 73 Respiratory Rate 20 Blood Pressure [Right Arm] 144/81 H Blood Pressure Mean [Right Arm] 102 Blood Pressure Source [Right Arm] Automatic Cuff Blood Pressure Position [Right Arm] Sitting 02 Sat by Pulse Oximetry 95 Oxygen Delivery Method Room Air Orders (Tests/Meds): ORDERS Category Date Time Status Shoulder XR right miminum 2 views [XR shoulder RT min Exams 02/19/20 15:51 Ordered 2V] Stat XR shoulder RT 1V Routine Exams 02/19/20 16:05 Ordered Medical Decision Narrative: Patient 79-year-old female presenting after mechanical fall with injury to her right shoulder. She do not sustain other injuries. She did not hit her head or lose consciousness. X-rays of patient's right shoulder will be obtained. There does appear to be a proximal humerus fracture to patient's right shoulder. She has no nerve deficits in axillary nerve distribution. Again no pulse deficits distal to injury and she is able to wiggle her fingers with good sensation. At this time, x-ray findings discussed with on-call orthopedic surgeon. Plan for patient to be placed in sling and to follow-up with orthopedics for further management has been made. Patient does have a pain pump for chronic pain since her pain will be tough to control but I did advise her to take Tylenol and Motrin with her already prescribed pain regimen. Patient will immediately return if any new or worsening symptoms including decreased range of motion, increased pain, fever/chills, other new concerning symptoms. Again, there is no skin tenting findings or open breaks in the skin. Assessment: Proximal humerus fracture Mechanical fall Disposition: Home with orthopedic follow-up General Adult HPI - General Stated complaint: fall Time Seen by Provider: 02/19/20 14:50 - History of Present Illness HPI narrative: Patient 79-year-old female does have pain pump for chronic pain presenting after mechanical fall. Patient states she was presenting to the hospital for medication refill and actually fell down the steps. Was mechanical fall. She did not hit her head or lose consciousness. She did fall on her right shoulder is had a pain that is constant, sharp represents. She has had difficulty ranging her shoulder. No other injury sustained. No ac use on history. - Related Data Home Medications Medication Instructions Recorded Confirmed Escitalopram Oxalate 20 mg P
--- NOTE | 2020-02-19 14:38 | CT_ITS ---
PROCEDURE: CT HEAD/BRAIN WO CON CLINICAL INDICATION: fall Head injury with headache/pain, contusion, abrasion or hematoma COMPARISON: No exams were available for comparison TECHNIQUE: Axial images obtained. All CT scans at the facility use one or more dose reduction, viz: automated exposure control, ma/kV adjustment per patient size (including targeted exams where dose is matched to indication, i.e. head), or iterative reconstruction technique. FINDINGS: No midline shift, mass effect, intracranial hemorrhage, hydrocephalus, or extra-axial fluid collection is evident. There is prominent atrophy.. The calvarium has an unremarkable appearance. No mastoid effusion. Mucosal thickening involves the maxillary and ethmoid sinuses. IMPRESSION: No acute intracranial finding Dictated by: Kelvin Sanders MD 02/19/2020 15:33 Kelvin Sanders MD in [facility] 02/19/2020 15:33
--- NOTE | 2020-02-19 14:38 | XR_ITS ---
PROCEDURE: XR SHOULDER RT MIN 2V CLINICAL INDICATION: fall Pain following injury/fall COMPARISON: No exams were available for comparison FINDINGS: There is a nondisplaced fracture of the humeral neck. There is posterior angulation of the distal fracture fragment. Humeral head appears in place. IMPRESSION: Nondisplaced humeral neck fracture Dictated by: Kelvin Sanders MD 02/19/2020 15:57 Kelvin Sanders MD in [facility] 02/19/2020 15:57
--- NOTE | 2020-02-19 14:38 | XR_ITS ---
PROCEDURE: XR PELVIS 1-2V CLINICAL INDICATION: fall Posttraumatic pain COMPARISON: No exams were available for comparison TECHNIQUE: XR Pelvis AP View FINDINGS: No fracture or dislocation is evident. Mild osteoarthritic change of the hips. There is a pain pump present in the right lower quadrant with the catheter projecting over the lower lumbar spine. Rounded calcific densities are present in the pelvis and may be due to phleboliths. No lytic or blastic change. IMPRESSION: No acute findings. Dictated by: Kelvin Sanders MD 02/19/2020 15:53 Kelvin Sanders MD in [facility] 02/19/2020 15:53
--- NOTE | 2020-02-19 14:38 | XR_ITS ---
PROCEDURE: XR CHEST AP CLINICAL HISTORY: fall Posttraumatic pain COMPARISON: CR CXR CHEST(2 VIEWS-NOT PORTABLE) from 11/25/[address] CHEST WO CON from 07/12/2019 FINDINGS: Bipolar pacemaker is present. Normal heart size. The lungs are clear without infiltrates, suspicious nodules, or pleural effusions. Right hemidiaphragm is elevated. There is nondisplaced fracture of the right humeral neck. IMPRESSION: Right humeral neck fracture. Otherwise negative Dictated by: Kelvin Sanders MD 02/19/2020 15:56 Kelvin Sanders MD in [facility] 02/19/2020 15:56
--- NOTE | 2020-02-19 14:38 | CT_ITS ---
PROCEDURE: CT CERVICAL SPINE WO CON CLINICAL INDICATION: fall Neck injury with pain, contusion/abrasion or hematoma, cervical sprain/strain the COMPARISON: No exams were available for comparison TECHNIQUE: Axial images obtained with sagittal and coronal reformats. All CT scans at the facility use one or more dose reduction, viz: automated exposure control, ma/kV adjustment per patient size (including targeted exams where dose is matched to indication, i.e. head), or iterative reconstruction technique. Axial spiral CT scanning performed of the cervical spine beginning at the base of the skull and continuing to the upper T-spine. 3-D multiplanar reconstruction with 3-D manipulation of volumetric data set in image rendering was completed by the radiologist and/or technologist with the supervision of the radiologist on independent workstation. FINDINGS: No fracture nor subluxation is evident. Normal prevertebral soft tissues. Facets, neural foramen and vertebral bodies intact and unremarkable. Normal C1/C2 relationships. Apices of lungs are clear with no acute findings. IMPRESSION: Cervical spine intact with no fracture nor subluxation. Dictated by: Kelvin Sanders MD 02/19/2020 15:35 Kelvin Sanders MD in [facility] 02/19/2020 15:35
--- NOTE | 2020-02-19 15:51 | XR_ITS ---
PROCEDURE: XR SHOULDER RT MIN 2V CLINICAL INDICATION: fall Posttraumatic pain COMPARISON: CR XR SHOULDER RT MIN 2V from 02/19/2020 FINDINGS: There is a comminuted displaced right humeral neck fracture. There is moderate dorsal angulation of the distal fracture fragment as well as anterior displacement of the distal fracture fragment by approximately 17 mm. The humeral head is in place Other findings:None. IMPRESSION: Angulated and displaced right humeral neck fracture Dictated by: Kelvin Sanders MD 02/19/2020 16:50 Kelvin Sanders MD in [facility] 02/19/2020 16:50
[2020-02-19 16:31] VITALS: BP 190/85; PULSE 72; RESP 17; TEMP 36.7; O2SAT 96
== END 2020-02-19 16:39 | disposition home or self-care (01) ==
PROVIDERS: Emergency Provider Emergency Medicine; PCP Internal Medicine Adolescent Medicine
DX: S42.294A Other nondisplaced fracture of upper end of right humerus, initial encounter for closed fracture (principal); W10.9XXA Fall (on) (from) unspecified stairs and steps, initial encounter; Y92.89 Other specified places as the place of occurrence of the external cause; F41.8 Other specified anxiety disorders; E78.5 Hyperlipidemia, unspecified; I48.20 Chronic atrial fibrillation, unspecified; K21.9 Gastro-esophageal reflux disease without esophagitis; I10 Essential (primary) hypertension; Z79.01 Long term (current) use of anticoagulants; Z90.710 Acquired absence of both cervix and uterus; Z95.0 Presence of cardiac pacemaker; Z79.899 Other long term (current) drug therapy
CPT/HCPCS: 70450; 71045; 72125; 72170; 73030; 99284

== ENCOUNTER 2020-02-22 12:45 | Day surgery (SDC) | payer MEDICARE, OTHER, SELFPAY ==
--- NOTE | 2020-02-22 13:00 | P.PCN_ITS ---
- Procedure Date: 02/22/20 Time: 13:00 Anesthesiologist:: Chhaya Marin APRN Complications:: None Pre-procedure Diagnosis:: Degenerative disc disease lumbar spine with lumbar radiculopathy symptoms, acute right shoulder pain Post-procedure Diagnosis:: Same Indications for Procedure:: Patient is a pleasant 79-year-old white female who presents today for intrathecal pain pump refill and reprogram. She has been treated for chronic low back pain with lumbar radiculopathy symptoms. Patient was scheduled to undergo intrathecal refill this previous Wednesday, however, when coming to her visit she suffered from a fall injuring her right shoulder. She currently has her right arm in a sling. She did undergo x-rays and they are determining if the patient does need surgical intervention. She is currently on morphine at 0.5 mg/day. She does rate her pain a 10 out of 10 to her right shoulder. She would like an increase today. We will refill the patient and give her a bolus while she is in the clinic to see if this relieves any of her shoulder pain. We will also plan to increase her daily dose today. Physical exam General: Alert and oriented x3, no acute distress, pleasant and cooperative, [on room air] Lungs: Respirations even and unlabored, symmetrical chest expansion Eyes: PERRL Musculoskeletal: Flexion and extension of lumbar and cervical spine somewhat guarded secondary to pain, deep tendon reflexes normal, strength in upper and lower extremities [5/5], [abnormal gait noted] Neurological: Speech clear, licensed mental health professional equal, no gross sensory deficit Procedure Details:: Informed consent was obtained and the risk and benefits of the procedure were explained to the patient. The patient was taken to the procedure room where noninvasive monitoring was placed including noninvasive blood pressure cuff and pulse oximeter. Patient's pump was interrogated. The area over the pump was cleansed with chlorhexidine as a cleansing solution. In sterile fashion the pump was accessed with a 22-gauge needle. Approximately 11 mls of the pump solution was removed and discarded appropriately. The pump was then refilled with 20 mL's of morphine 5 mg per mill. The needle was withdrawn and a bandage was placed over the puncture site. The infusion rate was reprogrammed at increased to 0.62 mg/day. The patient tolerated well with no complication. Plan and Disposition:: Patient was given a bolus of 0.05 mg of morphine while in the clinic. She also received an increase in her daily dose. We will plan to see the patient back in the clinic in 2 weeks to reassess her symptoms. She is awaiting further evaluation to see if she needs to have surgical intervention to her right shoulder. She has been instructed to contact the clinic if she has any concerns for next appointment. The patient and I specifically discussed risk factors for COVID19. These risks include, but are not limited to age greater than 60, heart or lung disease, diabetes, immunosuppression, and travel. We also discussed NSAIDs may worsen COVID19 infection or symptoms. Patient should not use NSAIDs to treat COVID19 signs or symptoms. Patient was also informed that any type of corticosteroid of any form (oral or injection) will decrease the patient's immune system response and may increase the likelihood of COVID19 [address] Poon has reviewed this note and agrees with this plan of care. This note was dictated using voice recognition software and make contain errors or omissions.
[2020-02-22 13:53] VITALS: BP 123/67; PULSE 85; RESP 18; TEMP 36.3; O2SAT 97; BMI 25.7
[2020-02-22 13:56] VITALS: BP 131/69; PULSE 66; RESP 18; TEMP 36.3; O2SAT 97
[2020-02-22 13:57] VITALS: BP 131/69; PULSE 68; RESP 18; O2SAT 97
[2020-02-22 13:58] VITALS: BP 128/89; PULSE 69; RESP 18; O2SAT 98
== END 2020-02-22 13:30 | disposition home or self-care (01) ==
LOC: SC.PAINP 12:46
PROVIDERS: PCP Internal Medicine Adolescent Medicine; Visit Provider Clinical Nurse Specialist Family Health
DX: M51.16 Intervertebral disc disorders with radiculopathy, lumbar region (principal); M25.511 Pain in right shoulder
CPT/HCPCS: 62370

== ENCOUNTER → 2020-02-29 12:43 | Outpatient (POV) | payer MEDICARE, OTHER, SELFPAY ==
[2020-02-29 13:06] VITALS: BP 118/72; PULSE 74; RESP 18; O2SAT 98; BMI 25.7
--- NOTE | 2020-02-29 13:14 | P.PCN_ITS ---
- Procedure Date: 02/29/20 Time: 13:14 Anesthesiologist:: Chhaya Marin APRN Complications:: None Pre-procedure Diagnosis:: Degenerative disc disease lumbar spine with lumbar radiculopathy symptoms, acute right shoulder pain, right shoulder fracture Post-procedure Diagnosis:: Same Indications for Procedure:: Patient is a pleasant 79-year-old white female who presents today for int rathecal pain pump adjustment. She is being treated for chronic low back pain with lumbar radiculopathy symptoms. Patient was scheduled to undergo an intrathecal pain pump refill and had a fall while in the facility. She did strike her right shoulder which caused a right shoulder fracture. She was started on [place] 5 mg at her last visit. Patient is taking this 3 times a day and says it is giving her some relief, however, she rates her pain a 10 out of 10 today. She says that she is having worsening pain to her right shoulder. She is very tearful again today. She would like to get an increase in her medication to see if this gives her relief in her intrathecal pump She is currently getting morphine 0.62 mg/day. She denies any side effects to the medication. The patient's Nithin #[id number] has been reviewed and is appropriate. Morphine equivalent is 15. Drug screens have been appropriate. Physical exam General: Alert and oriented x3, no acute distress, pleasant and cooperative, [on room air] Lungs: Respirations even and unlabored, symmetrical chest expansion Eyes: PERRL Musculoskeletal: Flexion and extension of somewhat guarded secondary to pain, deep tendon reflexes normal, strength in upper and lower extremities [4/5], normal gait noted Neurological: Speech clear, portable irrigation operator equal, no gross sensory deficit Procedure Details:: Informed consent was obtained and the risk and benefits of the procedure were explained to the patient. Patient was taken to the procedure room where noninvasive monitoring was placed including noninvasive blood pressure cuff and pulse oximeter. Patient's pump was interrogated and was reprogrammed to morphine at 0.62 mg/day. Single demand bolus was given of morphine 0.06 mg. The patient tolerated the procedure well with no complications. Plan and Disposition:: The patient was accompanied by her daughter today. After receiving a bolus of morphine 0.06 mg, the patient did report to get pain relief to a 5 out of 10. The patient does not want a change in her intrathecal dosing at this time. She will plan to follow-up with us in 2 weeks to reevaluate and reassess her pain. She will continue to take her [place] until we see her at her next appointment. The patient has been instructed to contact the clinic if she has any concerns before next appointment. The patient and I specifically discussed risk factors for COVID19. These risks include, but are not limited to age greater than 60, heart or lung disease, diabetes, immunosuppression, and travel. We also discussed NSAIDs may worsen COVID19 infection or symptoms. Patient should not use NSAIDs to treat COVID19 signs or symptoms. Patient was also informed that any type of corticosteroid of any form (oral or injection) will decrease the patient's immune system response and may increase the likelihood of COVID19 infection and symptoms.
== END ==
PROVIDERS: PCP Internal Medicine Adolescent Medicine; Visit Provider Clinical Nurse Specialist Family Health
DX: M51.16 Intervertebral disc disorders with radiculopathy, lumbar region (principal); S42.291A Other displaced fracture of upper end of right humerus, initial encounter for closed fracture
CPT/HCPCS: 99212

== ENCOUNTER → 2020-03-07 10:34 | Outpatient (CLI) | payer MEDICARE, OTHER, SELFPAY ==
--- NOTE | 2020-03-07 10:41 | XR_ITS ---
PROCEDURE: XR SHOULDER RT MIN 2V CLINICAL INDICATION: Rt humerus FX Follow-up fracture COMPARISON: CR XR SHOULDER RT MIN 2V from 02/19/2020 CR XR SHOULDER RT MIN 2V from 02/19/2020 FINDINGS: Comminuted and displaced humeral neck fracture once again noted. There is anterior displacement of the distal fracture fragment with 0 percent apposition. Unremarkable glenohumeral joint. IMPRESSION: Comminuted displaced right humeral neck fracture with increased anterior displacement of the distal fracture fragment with 0 percent apposition Dictated by: Kelvin Sanders MD 03/07/2020 13:28 Kelvin Sanders MD in [place] 03/07/2020 13:28
== END ==
PROVIDERS: PCP Internal Medicine Adolescent Medicine; Visit Provider Orthopaedic Surgery
DX: S42.309A Unspecified fracture of shaft of humerus, unspecified arm, initial encounter for closed fracture (principal)
CPT/HCPCS: 73030

== ENCOUNTER → 2020-03-08 11:44 | Outpatient (CLI) | payer MEDICARE, OTHER, SELFPAY ==
--- NOTE | 2020-03-08 11:44 | CT_ITS ---
PROCEDURE: CT SHOULDER RT WO CON CLINICAL HISTORY: Rt shoulder FX Follow-up fracture COMPARISON: CR XR SHOULDER RT MIN 2V from 03/07/2020 TECHNIQUE: Axial images obtained with sagittal and coronal reformats. All CT scans at the facility use one or more dose reduction, viz: automated exposure control, ma/kV adjustment per patient size (including targeted exams where dose is matched to indication, i.e. head), or iterative reconstruction technique. FINDINGS: There is a comminuted fracture of the surgical neck of the humerus. There is anterior displacement the distal fracture fragment by 14 mm and there is some mild foreshortening at the fracture site with dorsal and lateral angulation of the distal fracture fragment. There is some developing callus formation at the fracture with faint calcification noted. There is no evidence of shoulder dislocation. No abnormal fluid collections are apparent. There are few faint nonspecific nodular opacities in the right upper lobe IMPRESSION: Comminuted displaced fracture of the surgical neck of the right humerus with foreshortening and dorsal and lateral angulation of the distal fracture fragment with minimal bony apposition. There is some developing callus formation. Dictated by: Kelvin Sanders MD 03/08/2020 13:02 Kelvin Sanders MD in [place] 03/08/2020 13:02
== END ==
PROVIDERS: PCP Internal Medicine Adolescent Medicine; Visit Provider Orthopaedic Surgery
DX: S42.201A Unspecified fracture of upper end of right humerus, initial encounter for closed fracture (principal)
CPT/HCPCS: 73200

== ENCOUNTER → 2020-03-14 12:42 | Outpatient (POV) | payer MEDICARE, OTHER, SELFPAY ==
[2020-03-14 12:44] VITALS: BP 140/77; PULSE 74; RESP 18; O2SAT 98; BMI 22.2
--- NOTE | 2020-03-14 17:05 | HMH.PAINSOAP ---
[facility] Pain Management SOAP Note Subjective:: Patient is a pleasant 79-year-old white female who presents today for follow-up. She has been treated for chronic low back pain with lumbar radiculopathy symptoms. Patient recently had a right shoulder fracture. As result, we have given the patient oral medications for breakthrough pain. Patient does have an intrathecal pain pump that was recently placed. She does have morphine in the intrathecal pump at 0.6 mg a day. She denies any side effects to her intrathecal therapy. She says this is working well for her low back. She is continuing to have some significant pain to her right shoulder however. Patient did see an orthopedic surgeon who did discuss with the patient and her granddaughter that she was likely not a surgical candidate and should undergo physical therapy as a result. She is here today with her granddaughter. The granddaughter has asked that the patient receive oral medications while doing physical therapy. She says the patient did tolerate the [place] without any side effects and it was helpful with her pain relief. Patient does rate her pain an 8 out of 10 today. Review of Systems General: No recent weight changes, no fever, no sleep disturbances Respiratory: No cough, no shortness of air, no recurring pulmonary infections Cardiovascular/peripheral vascular: No chest pain, no palpitations, no edema, no shortness of breath Gastrointestinal: No new onset incontinence, normal bowel movements reported Genitourinary: No new onset incontinence Musculoskeletal: Right shoulder pain, intermittent low back pain Psychiatric: Normal mood/affect Neurological: [Denies weakness in extremities], [denies balance issues] Objective:: Physical exam General: Alert and oriented x3, no acute distress, pleasant and cooperative, [on room air] Lungs: Respirations even and unlabored, symmetrical chest expansion Eyes: PERRL Musculoskeletal: Flexion and extension of lumbar spine somewhat guarded secondary to pain, flexion and extension of right upper extremity somewhat guarded secondary to pain deep tendon reflexes normal, strength in upper and lower extremities [5/5] slightly antalgic gait noted Neurological: Speech clear, industrial roofer helper equal, no gross sensory deficit Assessment:: Degenerative disc disease lumbar spine with lumbar radiculopathy symptoms, right shoulder pain, right shoulder fracture Plan:: I did discuss with Dr. Waller pain medication regimen plan with the patient while she is undergoing physical therapy. We will start her on tramadol 50 mg 1 tablet p.o. 2 times daily. The patient does not want any changes to her intrathecal pump today. We will order the medication for her and plan to see her back in 2 weeks to make sure she is doing well with the medications. She has been instructed to contact clinic if she has any concerns before next appointment. The patient and I specifically discussed risk factors for COVID19. These risks include, but are not limited to age greater than 60, heart or lung disease, diabetes, immunosuppression, and travel. We also discussed NSAIDs may worsen COVID19 infection or symptoms. Patient should not use NSAIDs to treat COVID19 signs or symptoms. Patient was also informed that any type of corticosteroid of any form (oral or injection) will decrease the patient's immune system response and may increase the likelihood of COVID19 infection and symptoms[address]. Poon has reviewed this note and agrees with this plan of care. This note was dictated using voice recognition software and make contain errors or omissions. Patient has been prescribed a controlled substance after being counseled on the medication, medication safety, and possible side effects. VERENA report has been obtained and reviewed prior to prescription and found to be appropriate. Opioid contract was reviewed and signed by the patient, and that they have agreed to all of the terms set forth by our com
== END ==
PROVIDERS: PCP Internal Medicine Adolescent Medicine; Visit Provider Clinical Nurse Specialist Family Health
DX: M51.16 Intervertebral disc disorders with radiculopathy, lumbar region (principal); S42.309A Unspecified fracture of shaft of humerus, unspecified arm, initial encounter for closed fracture
CPT/HCPCS: 62368; 99212

== ENCOUNTER → 2020-03-21 10:46 | Outpatient (POV) | payer MEDICARE, OTHER, SELFPAY ==
[2020-03-21 11:24] VITALS: BP 129/92; PULSE 88; RESP 18; TEMP 36.9; O2SAT 99; BMI 24.2
--- NOTE | 2020-03-21 11:58 | HMH.PAINSOAP ---
[facility] Pain Management SOAP Note Subjective:: Is a pleasant 79-year-old white female who presents today for follow-up. She is being treated for chronic low back pain with a intrathecal pain pump that is working very well she denies any back pain at this time. Patient however has recently broken her right shoulder. It is a severe break however she is not a candidate for surgery due to her cardiology clearance. Patient is going to be starting physical therapy. She rates her pain in her shoulder 9 out of 10. She is extremely sensitive to touch in this area. Patient had a one-time dose of [place] which was beneficial however we do not want to continue this due to her intrathecal pain pump. Patient tried tramadol however she could not tolerate it. We discussed a compounding cream she is agreeable we will move forward with this. ROS General: no recent weight change, no fever, no sleep disturbances Respiratory: no cough, no shortness of air, no recurring pulmonary infections Cardiovascular/Peripheral Vascular: No chest pain, No palpitations, no edema, no shortness of breath. Gastrointestinal: no new onset incontinence, normal bowel movements reported Genitourinary: no new onset incontinence Musculoskeletal: Right shoulder pain. Psychiatric: normal mood/ affect Neurological: [denies new onset weakness in extremities], [denies new onset balance issues] Objective:: Physical Exam General: Alert and oriented x3, no acute distress, pleasant and cooperative, [on room air] Lungs: Resps E/U, Symmetrical chest expansion, Eyes: PERRL Musculoskeletal: Flexion and extension of lumbar spine somewhat guarded secondary to pain, deep tendon reflexes normal, strength in upper and lower extremities [5/5], [ slightly antalgic gait noted] Neurological: speech clear, records associate equal, no gross sensory deficits Assessment:: Degenerative disc disease lumbar spine lumbar radiculopathy symptoms, right shoulder pain, right shoulder fracture Plan:: We will start her on a compounding cream. We will follow up with her on the . Patient has been instructed to call the office if she has any issues prior to her next appointment. Dr. Poon has reviewed this note and agrees with this plan of care. This note was dictated using voice recognition software and may contain errors or omissions [facility] History I have reviewed the patient's past medical history: Yes Medical History: Reports:: Anxiety, Arrhythmia, Asthma, Atrial Fibrillation, Depression, Gastroesophageal Reflux Disease(GERD), Hyperlipidemia, Hypertension, Internal Pacemaker Denies:: Cancer, Diabetes Mellitus Type 1, Diabetes Mellitus Type 2, MRSA, Seizures *Have you ever received a pneumonia vaccine?: Yes *Have you received a flu vaccine this season?: Yes Other Medical History: Reports: Arthritis. Denies: Blood Transfusion Reaction Other Surgeries: Yes: Hysterectomy-Total, Pacemaker, Other (lumbar sx) Amputation: No Fractures: Yes (lumbar) - *Social History Smoking Status: Never smoker Alcohol Intake: never Substance Use Type: denies use *Occupational Status:: other Housing: house Household Members: other *Travel in the last 8 weeks: None - Psychiatric History Pschychiatric History:: Reports:: Anxiety, Depression Family Hx:: Unable to obtain
== END ==
PROVIDERS: PCP Internal Medicine Adolescent Medicine; Visit Provider Clinical Nurse Specialist Family Health
DX: M51.16 Intervertebral disc disorders with radiculopathy, lumbar region (principal); S42.309A Unspecified fracture of shaft of humerus, unspecified arm, initial encounter for closed fracture
CPT/HCPCS: 99212

== ENCOUNTER → 2020-03-28 13:54 | Outpatient (POV) | payer MEDICARE, OTHER, SELFPAY ==
[2020-03-28 14:22] VITALS: BP 108/74; PULSE 71; RESP 18; O2SAT 98; BMI 25.0
--- NOTE | 2020-03-28 14:59 | HMH.PAINSOAP ---
[facility] Pain Management SOAP Note Subjective:: Patient is a 79-year-old white female who presents today for follow-up. She has been treated for chronic low back pain with lumbar radiculopathy symptoms. Patient did have a fall which resulted in a fractured right shoulder. She rates her pain a 7 out of 10 today. Patient has been given boluses and has also been given oral medications over the last few weeks. She is currently in physical therapy. She is accompanied today by her daughter. She was given [place] and tramadol. At her last visit her daughter did request [place] again for the patient and is requesting it again today. Patient and daughter have been advised today that we cannot continue giving [place] for acute shoulder pain. She does have an intrathecal pump for which she does not want changed at this time. She does say that tramadol caused her to have severe nausea and vomiting. Review of Systems General: No recent weight changes, no fever, no sleep disturbances Respiratory: No cough, no shortness of air, no recurring pulmonary infections Cardiovascular/peripheral vascular: No chest pain, no palpitations, no edema, no shortness of breath Gastrointestinal: No new onset incontinence, normal bowel movements reported Genitourinary: No new onset incontinence Musculoskeletal: Right shoulder pain Psychiatric: Normal mood/affect Neurological: [Denies weakness in extremities], [denies balance issues] Objective:: Physical exam General: Alert and oriented x3, no acute distress, pleasant and cooperative, [on room air] Lungs: Respirations even and unlabored, symmetrical chest expansion Eyes: PERRL Musculoskeletal: Flexion and extension of cervical spine somewhat guarded secondary to pain, deep tendon reflexes normal, strength in upper and lower extremities [5/5], normal gait noted Neurological: Speech clear, sales stock associate equal, no gross sensory deficit Assessment:: Degenerative disc disease lumbar spine with lumbar radiculopathy symptoms, right shoulder pain Plan:: Unfortunately, the patient understands we will not be able to continue giving her [place] for acute pain. She has had the fracture for longer than a month at this point. We can order the patient lidocaine patches to see if this is beneficial for her pain, however. She was ordered a compounding cream, however, the daughter says that they were unable to afford the medication. We will see her back in 2 weeks to see if the lidocaine patches were beneficial for her shoulder pain. The patient and I specifically discussed risk factors for COVID19. These risks include, but are not limited to age greater than 60, heart or lung disease, diabetes, immunosuppression, and travel. We also discussed NSAIDs may worsen COVID19 infection or symptoms. Patient should not use NSAIDs to treat COVID19 signs or symptoms. Patient was also informed that any type of corticosteroid of any form (oral or injection) will decrease the patient's immune system response and may increase the likelihood of COVID19 infection [address] symptoms[address] Poon has reviewed this note and agrees with this plan of care. This note was dictated using voice recognition software and make contain errors or omissions. [facility] History I have reviewed the patient's past medical history: Yes Medical History: Reports:: Anxiety, Arrhythmia, Asthma, Atrial Fibrillation, Depression, Gastroesophageal Reflux Disease(GERD), Hyperlipidemia, Hypertension, Internal Pacemaker Denies:: Cancer, Diabetes Mellitus Type 1, Diabetes Mellitus Type 2, MRSA, Seizures *Have you ever received a pneumonia vaccine?: Yes *Have you received a flu vaccine this season?: Yes Other Medical History: Reports: Arthritis. Denies: Blood Transfusion Reaction Other Surgeries: Yes: Hysterectomy-Total, Pacemaker, Other (lumbar sx) Amputation: No Fractures: Yes (lumbar) - *Social History Smoking Status: Never smoker Alcohol Intake: never Substance Use Type: denies use *Occupat
== END ==
PROVIDERS: PCP Internal Medicine Adolescent Medicine; Visit Provider Clinical Nurse Specialist Family Health
DX: M51.16 Intervertebral disc disorders with radiculopathy, lumbar region (principal); M25.511 Pain in right shoulder
CPT/HCPCS: 99212

== ENCOUNTER → 2020-04-02 08:57 | Outpatient (CLI) | payer MEDICARE, OTHER, SELFPAY ==
--- NOTE | 2020-04-02 09:04 | XR_ITS ---
PROCEDURE: XR SHOULDER RT MIN 2V CLINICAL INDICATION: right proximal humerus fracture Follow-up fracture COMPARISON: CR XR SHOULDER RT MIN 2V from 02/19/2020 CR XR SHOULDER RT MIN 2V from 02/19/2020 CR XR SHOULDER RT MIN 2V from 03/07/2020 FINDINGS: Comminuted and displaced humeral neck fracture is present with medial angulation of the distal fracture fragment. The proximal fracture fragment is rotated laterally. There is developing callus formation. There is anterior displacement of the distal fracture fragment with only minimal bony apposition. IMPRESSION: Developing callus formation on the displaced and angulated right humeral neck fracture Dictated by: Kelvin Sanders MD 04/02/2020 16:50 Kelvin Sanders MD in [place] 04/02/2020 16:50
== END ==
PROVIDERS: PCP Internal Medicine Adolescent Medicine; Visit Provider Orthopaedic Surgery
DX: S42.201A Unspecified fracture of upper end of right humerus, initial encounter for closed fracture (principal)
CPT/HCPCS: 73030

== ENCOUNTER → 2020-04-29 09:04 | Outpatient (CLI) | payer MEDICARE, OTHER, SELFPAY ==
--- NOTE | 2020-04-29 09:14 | XR_ITS ---
PROCEDURE: XR IVP W KUB CLINICAL INDICATION: HEMATURIA, CHRONIC UTI COMPARISON: CT CT ABDOMEN PELVIS W CON from 04/16/2019 FINDINGS: Rn Visiting exam demonstrates prior kyphoplasty at L1. There is a pain pump present with the delivery device in the right iliac region with the tip the catheter at the L2 level. The kidneys are normal size shape and position. No hydronephrosis. The ureters have an unremarkable appearance. No ureteral calculi or strictures evident. Patient has had a prior cystectomy. The ileal loop noted in the pelvic region. Postvoid exam not able to be obtained due to the lack of a urinary bladder. IMPRESSION: Unremarkable kidneys and ureters with ileal loop device noted in the pelvis Dictated by: Kelvin Sanders MD 04/30/2020 16:44 Kelvin Sanders MD in [place] 04/30/2020 16:44
[2020-04-29 10:26] LABS: Blood Urea Nitrogen 17 mg/dl (7-17); Estimated Glomerular Filt Rate 61 ml/min (>60); GFR (African American) 73 ML/MIN (>60)
== END ==
PROVIDERS: PCP Internal Medicine Adolescent Medicine; Visit Provider Internal Medicine Adolescent Medicine
DX: R31.9 Hematuria, unspecified (principal); N39.0 Urinary tract infection, site not specified
CPT/HCPCS: 36415; 74400; 82565; 84520; Q9967

== ENCOUNTER → 2020-05-15 14:23 | Outpatient (CLI) | payer MEDICARE, OTHER, SELFPAY ==
--- NOTE | 2020-05-15 14:27 | XR_ITS ---
PROCEDURE: XR SHOULDER RT MIN 2V CLINICAL INDICATION: right proximal humerus fracture Follow-up fracture COMPARISON: CR XR SHOULDER RT MIN 2V from 02/19/2020 CR XR SHOULDER RT MIN 2V from 02/19/2020 CR XR SHOULDER RT MIN 2V from 03/07/2020 CR XR SHOULDER RT MIN 2V from 04/02/2020 FINDINGS: Displaced right humeral neck fracture is once again noted with moderate lateral angulation at the apex of the fracture with impaction of the fracture fragments. There is developing callus formation as before. There remains anterior displacement of the distal fracture fragment. Humeral head remains located. IMPRESSION: Healing displaced right humeral neck fracture Dictated by: Kelvin Sanders MD 05/15/2020 17:44 Kelvin Sanders MD in [place] 05/15/2020 17:44
== END ==
PROVIDERS: PCP Internal Medicine Adolescent Medicine; Visit Provider Orthopaedic Surgery
DX: S42.201A Unspecified fracture of upper end of right humerus, initial encounter for closed fracture (principal)
CPT/HCPCS: 73030

== ENCOUNTER → 2020-05-16 11:21 | Outpatient (POV) | payer MEDICARE, OTHER, SELFPAY ==
[2020-05-16 12:02] VITALS: BP 118/74; PULSE 71; RESP 18; O2SAT 98; BMI 24.0
--- NOTE | 2020-05-16 12:07 | P.CONS_ITS ---
[facility] Pain Management SOAP Note Subjective:: Patient is a 79-year-old white female who presents today for follow-up. Patient had a fall which resulted in a fractured right shoulder. She is doing very well today she rates her pain a 0 out of 10 she is completing physical therapy 2 times a week. She does have an intrathecal pain pump which she states is working well for her low back pain. Will ensure that she has an appointment for a refill on her intrathecal pain pump. ROS General: no recent weight change, no fever, no sleep disturbances Respiratory: no cough, no shortness of air, no recurring pulmonary infections Cardiovascular/Peripheral Vascular: No chest pain, No palpitations, no edema, no shortness of breath. Gastrointestinal: no new onset incontinence, normal bowel movements reported Genitourinary: no new onset incontinence Musculoskeletal: Back pain at times Psychiatric: normal mood/ affect Neurological: [denies new onset weakness in extremities], [denies new onset balance issues] Objective:: Physical Exam General: Alert and oriented x3, no acute distress, pleasant and cooperative, [on room air] Lungs: Resps E/U, Symmetrical chest expansion, Eyes: PERRL Musculoskeletal: Flexion and extension of lumbar spine somewhat guarded secondary to pain, deep tendon reflexes normal, strength in upper and lower extremities [5/5], [abnormal gait noted] decreased range of motion right shoulder Neurological: speech clear, molder vacuum equal, no gross sensory deficits Assessment:: Degenerative disc disease lumbar spine lumbar radiculopathy, right shoulder pain Plan:: We will see the patient back at her next intrathecal pain pump refill and reprogram she has been instructed to call the office if she has any issues prior to next appointment. Dr. Poon has reviewed this note and agrees with this plan of care. This note was dictated using voice recognition software and may contain errors or omissions [facility] History I have reviewed the patient's past medical history: Yes Medical History: Reports:: Anxiety, Arrhythmia, Asthma, Atrial Fibrillation, Depression, Gastroesophageal Reflux Disease(GERD), Hyperlipidemia, Hypertension, Internal Pacemaker Denies:: Cancer, Diabetes Mellitus Type 1, Diabetes Mellitus Type 2, MRSA, Seizures *Have you ever received a pneumonia vaccine?: Yes *Have you received a flu vaccine this season?: Yes Other Medical History: Reports: Arthritis. Denies: Blood Transfusion Reaction Other Surgeries: Yes: Hysterectomy-Total, Pacemaker, Other (lumbar sx) Amputation: No Fractures: Yes (lumbar) - *Social History Smoking Status: Never smoker Alcohol Intake: never Substance Use Type: denies use *Occupational Status:: other Housing: house Household Members: other *Travel in the last 8 weeks: None - Psychiatric History Pschychiatric History:: Reports:: Anxiety, Depression Family Hx:: Unable to obtain
== END ==
PROVIDERS: PCP Internal Medicine Adolescent Medicine; Visit Provider Clinical Nurse Specialist Family Health
DX: M51.16 Intervertebral disc disorders with radiculopathy, lumbar region (principal); M25.511 Pain in right shoulder
CPT/HCPCS: 99212; G0463

== ENCOUNTER 2020-07-05 09:38 | Day surgery (SDC) | payer MEDICARE, OTHER, SELFPAY ==
[2020-07-05 10:02] VITALS: BP 128/74; PULSE 67; RESP 18; TEMP 36; O2SAT 95; BMI 24.0
[2020-07-05 10:27] VITALS: BP 144/87; PULSE 72; RESP 18
[2020-07-05 10:30] VITALS: BP 145/88; PULSE 71; RESP 18; O2SAT 98
--- NOTE | 2020-07-05 10:34 | HMH.PMPROC ---
- Procedure Date: 07/05/20 Time: 10:34 Anesthesiologist:: Roberto Poon MD Complications:: None Pre-procedure Diagnosis:: Degenerative disc disease of lumbar spine with lumbar radiculopathy symptoms Post-procedure Diagnosis:: Same Indications for Procedure:: This patient is a pleasant 80-year-old white female who we are treating for low back pain with lumbar radiculopathy symptoms. She is doing well with her intrathecal pain pump. She is on intrathecal morphine at 0.62 mg/day. We will refill her pump and continue her at this current dose. Nithin and drug screen are all appropriate Nithin [id number]. She does have an antalgic gait. Motor strength of the lower extremities is 5/5. There is no gross sensory deficit. Procedure Details:: Pain pump refill Informed consent was obtained and the risks and benefits of the procedure was explained to the patient. The patient was taken to the procedure room. The pump was interrogated. The area over the pump was prepped using ChloraPrep. The pump was accessed with a 22-gauge needle. Approximately 3 mL's of the intrathecal solution was withdrawn and discarded. The pump was then refilled with 20 mL's of intrathecal morphine 5 mg/mL. The pump was interrogated and the infusion was continued at 0.62 mg/day. The patient tolerated the procedure well with no complication. Plan and Disposition:: We will follow-up with her at her next refill. She is any problems or questions she is to call us back in the pain clinic.
[2020-07-05 10:45] VITALS: BP 126/71; PULSE 69; RESP 18; O2SAT 95
== END 2020-07-05 10:46 | disposition home or self-care (01) ==
PROVIDERS: PCP Internal Medicine Adolescent Medicine; Visit Provider Anesthesiology
DX: M51.16 Intervertebral disc disorders with radiculopathy, lumbar region (principal); Z45.1 Encounter for adjustment and management of infusion pump; Z95.0 Presence of cardiac pacemaker; I10 Essential (primary) hypertension; J45.909 Unspecified asthma, uncomplicated; F41.9 Anxiety disorder, unspecified; F32.9 Major depressive disorder, single episode, unspecified; I49.9 Cardiac arrhythmia, unspecified; E78.5 Hyperlipidemia, unspecified; K21.9 Gastro-esophageal reflux disease without esophagitis; G43.909 Migraine, unspecified, not intractable, without status migrainosus; Z79.899 Other long term (current) drug therapy
CPT/HCPCS: 95991

== ENCOUNTER 2020-10-14 12:58 | Day surgery (SDC) | payer MEDICARE, OTHER, SELFPAY ==
[2020-10-14 13:15] VITALS: BP 122/76; PULSE 79; RESP 20; TEMP 36.5; O2SAT 96; BMI 22.9
[2020-10-14 13:17] VITALS: BP 118/71; BP 128/79; PULSE 71; PULSE 72; RESP 20; O2SAT 95; O2SAT 96
--- NOTE | 2020-10-14 13:18 | P.PCN_ITS ---
- Procedure Date: 10/14/20 Time: 13:18 Anesthesiologist:: Chhaya Marin APRN Complications:: None Pre-procedure Diagnosis:: Degenerative disc disease lumbar spine with lumbar radiculopathy symptoms Post-procedure Diagnosis:: Same Indications for Procedure:: Patient is a pleasant 10-year-old white female who presents today for intrathecal pain pump refill and reprogram. She is being treated for degenerative disc disease lumbar spine with lumbar radiculopathy symptoms. Patient rates her pain a 3 out of 10 today. She does not need an increase in her intrathecal therapy. She denies any side effects of medication. Her Nithin and drug screens have been appropriate. He is currently on morphine at 0.62 mg/day Physical exam General: Alert and oriented x3, no acute distress, pleasant and cooperative, [on room air] Lungs: Respirations even and unlabored, symmetrical chest expansion Eyes: PERRL Musculoskeletal: Flexion and extension of lumbar spine somewhat guarded second lance to pain, deep tendon reflexes normal, strength in upper and lower extremities [5/5], [abnormal gait noted] Neurological: Speech clear, pack train driver equal, no gross sensory deficit Procedure Details:: Informed consent was obtained and the risk and benefits of the procedure were explained to the patient. The patient was taken to the procedure room where noninvasive monitoring was placed including noninvasive blood pressure cuff and pulse oximeter. Patient's pump was interrogated. The area over the pump was cleansed with chlorhexidine as a cleansing solution. In sterile fashion the pump was accessed with a 22-gauge needle. Approximately 7 mls of the pump solution was removed and discarded appropriately. The pump was then refilled with 20 mL's of morphine 5 mg/mL. The needle was withdrawn and a bandage was placed over the puncture site. The infusion rate was reprogrammed at morphine 0.62 mg/day. The patient tolerated well with no complication. Plan and Disposition:: We will see the patient back at the next intrathecal refill. Patient has been instructed to contact clinic if any questions or concerns before the next appointment. Dr. Poon has reviewed this note and agrees with this plan of care. This note was dictated using voice recognition software and make contain errors or omissions.
[2020-10-14 13:30] VITALS: BP 123/77; PULSE 70; RESP 20; O2SAT 96
== END 2020-10-14 13:30 | disposition home or self-care (01) ==
PROVIDERS: PCP Internal Medicine Adolescent Medicine; Visit Provider Clinical Nurse Specialist Family Health
DX: M51.16 Intervertebral disc disorders with radiculopathy, lumbar region (principal); Z45.1 Encounter for adjustment and management of infusion pump; E78.5 Hyperlipidemia, unspecified; I48.91 Unspecified atrial fibrillation; I10 Essential (primary) hypertension; J45.909 Unspecified asthma, uncomplicated; K21.9 Gastro-esophageal reflux disease without esophagitis; M19.90 Unspecified osteoarthritis, unspecified site; F41.9 Anxiety disorder, unspecified; F32.9 Major depressive disorder, single episode, unspecified; Z79.899 Other long term (current) drug therapy
CPT/HCPCS: 95991

== ENCOUNTER 2021-01-20 13:28 | Day surgery (SDC) | payer MEDICARE, OTHER, SELFPAY ==
[2021-01-20 13:58] VITALS: BP 138/102; PULSE 63; RESP 18; TEMP 36.4; O2SAT 96; BMI 25.0
--- NOTE | 2021-01-20 14:29 | P.PCN_ITS ---
- Procedure Date: 01/20/21 Time: 14:29 Anesthesiologist:: Chhaya Marin APRN Complications:: None Pre-procedure Diagnosis:: Degenerative disc disease lumbar spine with lumbar radiculopathy symptoms Post-procedure Diagnosis:: Same Indications for Procedure:: Patient is a 80-year-old white female who presents today for intrathecal pain pump refill and reprogram. She has been treated for degenerative disc disease lumbar spine with lumbar radiculopathy symptoms. She is currently on a dose of morphine at 0.62 mg/day. She denies any side effects. She is also managed with lorazepam 0.5 mg as needed as needed by Dr. Palomo. [facility] #[id number] has been reviewed and is appropriate. Drug screen is appropriate. Patient says that she recently had a fall striking her left hip and left low back area. She is complaining of severe pain. She does have a history of falls with fractures. Physical exam General: Alert and oriented x3, no acute distress, pleasant and cooperative, [on room air] Lungs: Respirations even and unlabored, symmetrical chest expansion Eyes: PERRL Musculoskeletal: Flexion and extension of lumbar [spine] somewhat guarded secondary to pain, strength in upper and lower extremities [5/5], [antalgic gait noted] Neurological: Speech clear, [engine turner equal], no gross sensory deficit Procedure Details:: Informed consent was obtained and the risk and benefits of the procedure were explained to the patient. The patient was taken to the procedure room where noninvasive monitoring was placed including noninvasive blood pressure cuff and pulse oximeter. Patient's pump was interrogated. The area over the pump was cleansed with chlorhexidine as a cleansing solution. In sterile fashion the pump was accessed with a 22-gauge needle. Approximately 7 mls of the pump solution was removed and discarded appropriately. The pump was then refilled with 20 mL's of morphine 5 mg/mL. The needle was withdrawn and a bandage was placed over the puncture site. The infusion rate was reprogrammed at increased to morphine at 0.68 mg/day. The patient tolerated well with no complication. Plan and Disposition:: We will send the patient for x-ray of her lumbar spine and left hip. She is having worsening pain since falling. We will notify the patient of the imaging. Patient has been instructed to contact the clinic with any concerns before the next appointment. Dr. Poon has reviewed this note and agrees with this plan of care. This note was dictated using voice recognition software and make contain errors or omissions.
[2021-01-20 14:32] VITALS: BP 149/83; PULSE 76; RESP 18; O2SAT 97
[2021-01-20 14:33] VITALS: BP 149/83; PULSE 74; RESP 18; O2SAT 97
[2021-01-20 14:43] VITALS: BP 148/79; PULSE 76; RESP 20; O2SAT 95
--- NOTE | 2021-01-20 14:45 | XR_ITS ---
PROCEDURE: XR HIP LT 2-3V W/PELVIS CLINICAL INDICATION: BACK/HIP PAIN COMPARISON: CR XR PELVIS 1-2V from 02/19/2020 FINDINGS: No fracture or dislocation is evident. No significant degenerative change. No lytic or blastic change. Unremarkable soft tissues. IMPRESSION: No acute findings. Dictated by: Kelvin Sanders MD 01/20/2021 15:27 Kelvin Sanders MD in [place] 01/20/2021 15:27
--- NOTE | 2021-01-20 14:45 | XR_ITS ---
PROCEDURE: XR LUMBAR SPINE MIN 4V CLINICAL INDICATION: BACK/HIP PAIN COMPARISON: CR XR LUMBAR SPINE 2-3V from 04/09/2019 FINDINGS: There has been prior kyphoplasty at L1 with compression fracture of the L1 vertebral body with loss of height centrally and anteriorly of 40-50 percent. The compression fractures not significantly changed. No new fractures are evident. There is an epidural pain pump entering at the L5-S1 level with the cephalad tip at the L1-L2 level. Incidental vascular calcifications are present. Bone island noted overlying the left ilium medially. IMPRESSION: Chronic compression changes at L1 with interval kyphoplasty. No acute findings evident. Pain pump in place Dictated by: Kelvin Sanders MD 01/20/2021 15:26 Kelvin Sanders MD in [place] 01/20/2021 15:26
== END 2021-01-20 14:44 | disposition home or self-care (01) ==
LOC: SC.PAINP 13:30
PROVIDERS: PCP Internal Medicine Adolescent Medicine; Visit Provider Clinical Nurse Specialist Family Health
DX: M51.16 Intervertebral disc disorders with radiculopathy, lumbar region (principal); E78.5 Hyperlipidemia, unspecified; I48.91 Unspecified atrial fibrillation; I10 Essential (primary) hypertension; J45.909 Unspecified asthma, uncomplicated; K21.9 Gastro-esophageal reflux disease without esophagitis; M19.90 Unspecified osteoarthritis, unspecified site; F41.9 Anxiety disorder, unspecified; F32.9 Major depressive disorder, single episode, unspecified; Z95.0 Presence of cardiac pacemaker; Z79.899 Other long term (current) drug therapy
CPT/HCPCS: 62370; 72110; 73502

== ENCOUNTER 2021-05-19 13:46 | Day surgery (SDC) | payer MEDICARE, OTHER, SELFPAY ==
[2021-05-19 13:54] VITALS: BP 134/86; PULSE 113; RESP 20; TEMP 36.3; O2SAT 94; BMI 23.4
[2021-05-19 14:14] VITALS: BP 136/89; PULSE 75; RESP 18; O2SAT 97
[2021-05-19 14:15] VITALS: PULSE 73; RESP 18; O2SAT 97
--- NOTE | 2021-05-19 14:17 | HMH.PMPROC ---
- Procedure Date: 05/19/21 Time: 14:17 Anesthesiologist:: Chhaya Marin APRN Complications:: None Pre-procedure Diagnosis:: Degenerative disc disease of lumbar spine with lumbar radiculopathy symptoms Post-procedure Diagnosis:: Same Indications for Procedure:: Patient is a pleasant 80-year-old female who presents today for intrathecal pain pump [refill] [and reprogram]. The patient is being treated for degenerative disc disease of the lumbar spine with lumbar radiculopathy symptoms. Patient is currently being managed with morphine 5 mg/mL at a rate of 0.68 mg/day. Patient denies any side effects from this medication. Patient denies any change in location and type of pain. Patient is still having significant pain today and would like an adjustment. Patient rates pain a 9 out of 10. Drug screen is appropriate. Nithin [id number] has been reviewed and is appropriate. ORT score is low risk. Physical exam General: Alert and oriented x3, no acute distress, pleasant and cooperative, [on room air] Lungs: Respirations even and unlabored, symmetrical chest expansion Eyes: PERRL Musculoskeletal: Flexion and extension of lumbar [spine] somewhat guarded secondary to pain, normal gait noted Neurological: Speech clear, no gross sensory deficit Procedure Details:: Informed consent was obtained and the risk and benefits of the procedure were explained to the patient. The patient was taken to the procedure room where noninvasive monitoring was placed including noninvasive blood pressure cuff and pulse oximeter. Patient's pump was interrogated. The area over the pump was cleansed with chlorhexidine as a cleansing solution. In sterile fashion the pump was accessed with a 22-gauge needle. Approximately 3.5 mls of the pump solution was removed and discarded appropriately. The pump was then refilled with 20 mL's of morphine 5 mg/mL. The needle was withdrawn and a bandage was placed over the puncture site. The infusion rate was reprogrammed at morphine 0.748 mg/day. The patient tolerated well with no complication. Plan and Disposition:: We will plan to increase the patient's morphine concentration to 8 mg/mL at the next refill to increase time in between refills. We will see the patient back in the clinic at the next intrathecal refill. Patient has been instructed to contact the clinic with any concerns before the next appointment. Dr. Bux has reviewed this note and agrees with this plan of care. This note was dictated using voice recognition software and make contain errors or omissions.
[2021-05-19 14:25] VITALS: BP 154/94; PULSE 79; RESP 20; O2SAT 96
[2021-05-19 21:34] LABS: Barbiturates Screen,Urine Negative ng/ml (<200)
[2021-05-19 21:35] LABS: Amphetamine/Metha Screen,Urine Negative ng/ml (<1000); Benzodiazepines Screen,Urine Negative ng/ml (<200)
[2021-05-19 21:36] LABS: Cocaine Screen,Urine Negative ng/ml (<300)
[2021-05-19 21:37] LABS: Cannabinoid Screen,Urine Negative ng/ml (<50); Methadone Screen,Urine Negative ng/ml (<300)
[2021-05-19 21:38] LABS: Opiate Screen,Urine Positive ng/ml (<300)
[2021-05-19 21:39] LABS: Phencyclidine Screen,Urine Negative ng/ml (<25)
[2021-06-03 22:31] LABS: Opiates Negative (Cutoff=100)
== END 2021-05-19 14:25 | disposition home or self-care (01) ==
LOC: SC.PAINP 13:49
PROVIDERS: PCP Internal Medicine Adolescent Medicine; Visit Provider Clinical Nurse Specialist Family Health
DX: M51.16 Intervertebral disc disorders with radiculopathy, lumbar region (principal); Z45.1 Encounter for adjustment and management of infusion pump; E78.5 Hyperlipidemia, unspecified; I48.91 Unspecified atrial fibrillation; I10 Essential (primary) hypertension; K21.9 Gastro-esophageal reflux disease without esophagitis; F32.A Depression, unspecified; Z95.0 Presence of cardiac pacemaker
CPT/HCPCS: 62370; 80305; 80361; 80365; G0480

== ENCOUNTER 2021-06-18 16:30 | Observation (INO) | payer MEDICARE, OTHER, SELFPAY ==
[2021-06-18 17:46] VITALS: BMI 24.1
--- NOTE | 2021-06-18 17:47 | XR_ITS ---
PROCEDURE INFORMATION: Exam: XR Chest Exam date and time: 06/18/2021 5:47 PM Age: 81 years old Clinical indication: Cough TECHNIQUE: Imaging protocol: XR of the chest. Views: 1 view. COMPARISON: CR XR CHEST AP 02/19/2020 2:54 PM FINDINGS: Tubes, catheters and devices: A left subclavian pacemaker device is present, and its leads are in appropriate and stable position. Pacemaker device does obscure visualization of portions of the left lung. Lungs: Mild elevation the right hemidiaphragm is stable. The visualized lungs appear clear. No focal areas of consolidation. Pleural spaces: No pleural effusions or appreciable adenopathy. Negative for pneumothorax. Heart/Mediastinum: Cardiac silhouette and pulmonary vasculature are within range of normal. Bones/joints: There is no evidence of acute fracture. Remote fracture deformity of the right proximal humerus is noted. IMPRESSION: Negative for an acute cardiopulmonary abnormality.
--- NOTE | 2021-06-18 17:51 | HMH.HP ---
*Admission Date: 06/18/21 *Chief complaint: Nausea/fatigue *History of present illness: 81-year-old white female who has significant comorbidities of weakness, chronic osteoarthritis, recurrent atrial fibrillation currently on Eliquis therapy who presented to my office with nausea, vomiting, reports that she is been in the [facility] ER a couple of times with nausea and vomiting, has been apparently diagnosed with a UTI and treated with IV antibiotics but she does not recall that any antibiotics were given to her to go home with. She been feeling poorly over the past 3 or 4 days and came to the office today where she was found to have low blood pressure, dehydration, admitted to hospital. [facility] History I have reviewed the patient's past medical history: Yes Medical History: Reports:: Anxiety, Arrhythmia, Asthma, Atrial Fibrillation, Depression, Gastroesophageal Reflux Disease(GERD), Hyperlipidemia, Hypertension, Internal Pacemaker (defibrillator) Denies:: Cancer, Diabetes Mellitus Type 1, Diabetes Mellitus Type 2, MRSA, Seizures *Have you ever received a pneumonia vaccine?: Yes *Have you received a flu vaccine this season?: Yes Other Medical History: Reports: Arthritis. Denies: Blood Transfusion Reaction Other Surgeries: Yes: Colonoscopy, , Hysterectomy-Total, Pacemaker (defibrillator), Other (pain pump insertion) Amputation: No Fractures: Yes (lumbar) - *Social History Smoking Status: Never smoker Alcohol Intake: never Substance Use Type: denies use *Occupational Status:: retired Housing: house Household Members: family *Travel in the last 8 weeks: None - Psychiatric History Pschychiatric History:: Reports:: Anxiety, Depression Family Hx:: Other Review of Systems - Review of Systems Review of systems:: pertinent systems reviewed and negative unless documented below Meds Home Medications Medication Instructions Recorded Confirmed Type Escitalopram Oxalate 20 mg PO DAILY 04/09/19 05/19/21 History Furosemide [Furosemide 40MG tAB] 40 mg PO BID 04/09/19 05/19/21 History Omeprazole [Omeprazole 40mg 40 mg PO DAILY 04/09/19 05/19/21 History Capsule] Potassium Chloride [Klor-Con M10] 10 meq PO BID 04/09/19 05/19/21 History Sertraline HCl 25 mg PO DAILY 04/09/19 05/19/21 History apixaban 5 mg (74 tabs) tablets in 5 mg PO BID tab 10/05/19 05/19/21 History a dose pack dilTIAZem HCl [Diltiazem 180mg 180 mg PO DAILY 11/20/19 05/19/21 History 24Hr ER Cap] losartan 50 mg-hydrochlorothiazide 1 tab PO DAILY #30 tab 02/05/20 05/19/21 Rx 12.5 mg tablet metoprolol succinate 50 mg 50 mg PO DAILY #30 tab 02/05/20 05/19/21 Rx tablet,extended release 24 hr Morphine Sulfate 0.62 mg IT CONT 10/14/20 05/19/21 History Allergies Allergy/AdvReac Type Severity Reaction Status Date / Time No Known Allergies Allergy Verified 01/20/21 14:00 Exam - Constitutional mild distress, obese, chronically ill appearing - *Routine HEENT Exam Head: Present: normocephalic Eye: Present: EOMI, PERRL ENT: Present: mucous membranes dry - *Routine Neck Exam Present: supple. Absent: lymphadenopathy - *Routine Respiratory Exam Present: CTA bilaterally - *Routine Cardiovascular Exam Present: Normal S1, Normal S2, irregular rhythm - *Routine Abdominal Exam Present: soft, normoactive bowel sounds. Absent: tenderness - *Routine Rectal Exam Rectal:: deferred - *Routine Genitalia Exam Genitalia:: deferred - *Routine Extremities Exam Absent: cyanosis, clubbing, edema Comments: Dry mucosa - *Routine Skin Exam Present: warm. Absent: rash - *Routine Neurological Exam Present: alert, oriented X3 Assessment and Plan (1) Abdominal pain Status: Acute Category: Medical Code(s): R10.9 - Unspecified abdominal pain Significant abdominal pain with some nausea and vomiting. Plan will be to admit to hospital. Check labs, low-dose IV fluids overnight. Obtain records from outside hospital. S
--- NOTE | 2021-06-18 18:18 | ECG_ITS ---
APPROVED REPORT Exam: Resting ECG HR:125 bpm ECG Measurements Heart Rate 125 AXES QRSd 70 QRS 13 QT 279 T 90 QTc 353 Conclusion ATRIAL FIBRILLATION WITH RAPID VENTRICULAR RESPONSE LOW QRS VOLTAGE IN PRECORDIAL LEADS [QRS DEFLECTION < 1.0 mV IN CHEST LEADS] ANTEROSEPTAL MYOCARDIAL INFARCTION , OF INDETERMINATE AGE [40+ ms Q WAVE IN V1-V4] ABNORMAL ECG UNCONFIRMED REPORT Electronically signed by : Giovani Barajas MD 06/19/2021 18:48:35
[2021-06-18 19:24] LABS: Coronavirus 19, PCR Not Detected (NotDetected); Influenza A, PCR Not Detected (NotDetected); Influenza B, PCR Not Detected (NotDetected)
[2021-06-18 19:36] LABS: Basophils # 0.1 K/mm3 (0-0.2); Basophils % 1.5 % (0.1-2.0); Eosinophils # 0.1 K/mm3 (0.0-0.4); Eosinophils % 0.5 % (0.1-12.0); Hematocrit 40.4 % (37.0-47.0); Hemoglobin 13.3 g/dL (12.2-16.2); Lymphocytes # 3.4 K/mm3 (0.7-4.5); Lymphocytes % 37.3 % (10-50); Mean Corpuscular Hemoglobin 29.8 pg (27.0-31.2); Mean Corpuscular Volume 90.3 fl (81-99); Mean Platelet Volume 8.4 fl (7.4-10.4); Monocytes # 0.7 K/mm3 (0.1-1.0); Monocytes % 7.4 % (1.7-9.3); Neutrophils # 4.8 K/mm3 (1.8-7.8); Neutrophils % 53.2 % (37.0-80.0); Platelet Count 440 K/mm3 (142-424); Red Blood Count 4.47 M/mm3 (4.20-5.40); Red Cell Distribution Width 15.2 % (11.5-17.5)
[2021-06-18 19:44] LABS: Anion Gap 9.6 mEq/L (5-15); Blood Urea Nitrogen 45 mg/dl (7-17); Carbon Dioxide 25 mmol/L (22.0-30.0); Chloride 100 mmol/L (98-107); Creatinine Clearance Estimated 38 mL/min (50-200); Estimated Glomerular Filt Rate 60 ml/min (>60); GFR (African American) 73 ML/MIN (>60); Glucose 93 mg/dl (74-100); Magnesium 2.1 mg/dl (1.6-2.3); Potassium 3.6 mmoL/L (3.5-5.1); Sodium 131 mmol/L (136-145)
[2021-06-18 19:56] LABS: Microscopic, Urine URINE MICROSCOPIC (MICROSCOPIC)
[2021-06-18 20:00] VITALS: BP 135/66; PULSE 101; RESP 18; TEMP 37.2; O2SAT 93
[2021-06-18 20:04] LABS: Appearance,Urine CLOUDY (Clear); Blood, Urine 2+ (Negative); Color,Urine BROWN (Yellow); Glucose,Urine (UA) Negative (Negative); Ketones,Urine Negative (Negative); Leukocyte Esterase,Urine 2+ (Negative); Nitrate,Urine Negative (Negative); Protein,Urine 3+ (Negative); Specific Gravity, Urine <= 1.005 (1.005-1.030)
[2021-06-18 20:25] LABS: Lactic Acid 1.1 mmol/L (0.7-2.1)
[2021-06-18 20:33] LABS: Bilirubin,Urine Negative (Negative); PH,Urine >= 9.0 (5.0-8.5)
[2021-06-18 20:34] LABS: Bacteria,Urine 4+ /lpf; Triple Phosphate Crystal,Urine 1+ /lpf
[2021-06-19 00:36] VITALS: BP 114/70; PULSE 80; RESP 20; TEMP 37.3; O2SAT 96
[2021-06-19 04:00] VITALS: BP 91/60; PULSE 88; RESP 18; TEMP 37.2; O2SAT 92
[2021-06-19 05:12] VITALS: BMI 24.5
[2021-06-19 06:22] LABS: Basophils # 0.1 K/mm3 (0-0.2); Eosinophils # 0.1 K/mm3 (0.0-0.4); Monocytes # 0.5 K/mm3 (0.1-1.0)
[2021-06-19 06:25] LABS: Chloride 102 mmol/L (98-107); Sodium 130 mmol/L (136-145)
[2021-06-19 06:26] LABS: Potassium 3.1 mmoL/L (3.5-5.1)
[2021-06-19 06:28] LABS: Blood Urea Nitrogen 34 mg/dl (7-17); Creatinine Clearance Estimated 38 mL/min (50-200); Estimated Glomerular Filt Rate 69 ml/min (>60); GFR (African American) 84 ML/MIN (>60)
[2021-06-19 06:29] LABS: Calcium 7.1 mg/dl (8.4-10.2); Glucose 86 mg/dl (74-100)
[2021-06-19 06:46] LABS: Basophils % 0.7 % (0.1-2.0); Eosinophils % 1.1 % (0.1-12.0); Hematocrit 35.4 % (37.0-47.0); Lymphocytes # 2.7 K/mm3 (0.7-4.5); Lymphocytes % 34.3 % (10-50); Mean Corpuscular HGB Conc 32.2 g/dL (31.8-35.4); Mean Corpuscular Hemoglobin 29.3 pg (27.0-31.2); Mean Corpuscular Volume 91.2 fl (81-99); Mean Platelet Volume 7.9 fl (7.4-10.4); Monocytes % 6.5 % (1.7-9.3); Neutrophils # 4.5 K/mm3 (1.8-7.8); Neutrophils % 57.4 % (37.0-80.0); Platelet Count 321 K/mm3 (142-424); Red Blood Count 3.88 M/mm3 (4.20-5.40); Red Cell Distribution Width 15.4 % (11.5-17.5); White Blood Count 7.8 K/mm3 (4.8-10.8)
[2021-06-19 06:48] LABS: Hemoglobin 11.4 g/dL (12.2-16.2)
--- NOTE | 2021-06-19 07:38 | P.CONPHA_ITS ---
[facility] Pharmacy VTE Monitoring - Patient Demographics Admission date: 06/18/21 Report Date: 06/19/21 Time: 07:38 Allergies/Adverse Reactions: Patient Allergies No Known Allergies Allergy (Verified 01/20/21 14:00) Height: 1.47 m Weight: 53.161 kg Patient Problems: Current Active Problems Abdominal pain (Acute) - VTE Risk Labs: VTE Related Lab Results Hgb 11.4 g/dL (12.2-16.2) L D 06/19/21 05:22 Hct 35.4 % (37.0-47.0) L 06/19/21 05:22 Plt Count 321 K/mm3 (142-424) D 06/19/21 05:22 BUN 34 mg/dl (7-17) H 06/19/21 05:22 Creatinine 0.80 mg/dl (0.52-1.04) 06/19/21 05:22 Estimated Creat Clear 38 mL/min (50-200) 06/19/21 05:22 VTE Score: 1 VTE Risk Level: Low Risk - Prophylaxis VTE Prophylaxis Ordered?: Yes Types of VTE Prophylaxis: TEDS Knee High Location of Applied Device: Bilateral Lower Extremeties
[2021-06-19 08:00] VITALS: BP 109/57; PULSE 103; RESP 20; TEMP 36.9; O2SAT 92
--- NOTE | 2021-06-19 08:14 | HMH.ACPN2 ---
Internal Medicine - PN: Subj *Date: 06/19/21 *Time: 08:14 Interval history: Patient slept well overnight. This morning she is very reluctant to wake up and talk with me, and keeps pulling the bed coverings back over her shoulders and face. She denies pain, states that I do not want breakfast. Nurses report no problems overnight and she denies pain. Exam Vital signs and Labs for Last 24 Hours: Temp Pulse Resp BP Pulse Ox 98.9 F 88 18 91/60 L 92 L 06/19/21 04:00 06/19/21 04:00 06/19/21 04:00 06/19/21 04:00 06/19/21 04:00 Laboratory Results - last 24 hr 06/18/21 19:09: WBC 9.0, RBC 4.47, Hgb 13.3, Hct 40.4, MCV 90.3, MCH 29.8, MCHC 33.0, RDW 15.2, Plt Count 440 H, MPV 8.4, Neut % (Auto) 53.2, Lymph % (Auto) 37.3, [place] % (Auto) 7.4, Eos % (Auto) 0.5, Baso % (Auto) 1.5, Neut # (Auto) 4.8, Lymph # (Auto) 3.4, [place] # (Auto) 0.7, Eos # (Auto) 0.1, Baso # (Auto) 0.1 06/18/21 19:09: Sodium 131 L, Potassium 3.6, Chloride 100, Carbon Dioxide 25, Anion Gap 9.6, BUN 45 H, Creatinine 0.90, Estimated Creat Clear 38, Estimated GFR 60, Est GFR ( Amer) 73, Glucose 93, Calcium 9.0, Magnesium 2.1 06/18/21 19:13: SARS-CoV-2 (PCR) Not detected, Influenza A Untype (PCR) Not detected, Influenza Type B (PCR) Not detected 06/18/21 19:45: Lactate 1.1 06/18/21 19:46: Urine Color Brown, Urine Appearance Cloudy, Urine pH >= 9.0 H, Ur Specific [place] <= 1.005, Urine Protein 3+, Urine Glucose (UA) Negative, Urine Ketones Negative, Urine Blood 2+, Urine Nitrate Negative, Urine Bilirubin Negative, Urine Urobilinogen 1.0, Ur Leukocyte Esterase 2+ A, Urine RBC 5-10, Urine WBC 5-10, Ur Squamous Epith Cells 3-5, Triple Phos Crystals 1+, Urine Bacteria 4+ 06/19/21 05:22: WBC 7.8, RBC 3.88 L, Hgb 11.4 L D, Hct 35.4 L, MCV 91.2, MCH 29.3, MCHC 32.2, RDW 15.4, Plt Count 321 D, MPV 7.9, Neut % (Auto) 57.4, Lymph % (Auto) 34.3, [place] % (Auto) 6.5, Eos % (Auto) 1.1, Baso % (Auto) 0.7, Neut # (Auto) 4.5, Lymph # (Auto) 2.7, [place] # (Auto) 0.5, Eos # (Auto) 0.1, Baso # (Auto) 0.1 06/19/21 05:22: Sodium 130 L, Potassium 3.1 L, Chloride 102, Carbon Dioxide 23, BUN 34 H, Creatinine 0.80, Estimated Creat Clear 38, Estimated GFR 69, Est GFR ( Amer) 84, Glucose 86, Calcium 7.1 L I & O for Last 24 hours: Intake & Output 06/16/21 06/17/21 06/18/21 06/19/21 11:59 11:59 11:59 11:59 Intake Total 240 / 240 Output Total 400 / 400 Balance -160 / -160 Weight 117 lb 3.2 oz Narrative: Patient is in no distress, was sleeping comfortably. No respiratory distress. Heart rate irregular. Abdomen soft, no tenderness. Improved over yesterday's exam. No visible rash. Neurologic exam grossly intact but patient is not a cooperative. Assessment and Plan (1) Abdominal pain Status: Acute Category: Medical Code(s): R10.9 - Unspecified abdominal pain (2) UTI (urinary tract infection) Status: Acute Category: Medical Code(s): N39.0 - Urinary tract infection, site not specified (3) Atrial fibrillation Status: Chronic Qualifiers: Atrial fibrillation type: unspecified chronic Qualified Code(s): I48.20 - Chronic atrial fibrillation, unspecified Category: Medical Code(s): I48.91 - Unspecified atrial fibrillation - Assessment and plan all Dx Assessment and Plan for all problems:: Multiple comorbidities including depression, senile frailty, chronic UTIs, chronic A. fib. Restart Eliquis today. Hold blood pressure medications given her relatively low blood pressure and evidence of dehydration. Hypocalcemia and hypokalemia, replace intravenously and orally respectively today. Continue ceftriaxone, await blood and urine cultures. PT/OT evaluation today.
--- NOTE | 2021-06-19 08:59 | HMH.PHAINT ---
MEDICATION RECONCILIATION COMPLETED ON PATIENT USING EXTERNAL FILL HISTORY FROM PHARMACY AND LIST FROM PAIN MANAGEMENT. -MICHELLE OWENSD
[2021-06-19 09:36] LABS: Anion Gap 8.1 mEq/L (5-15); Carbon Dioxide 23 mmol/L (22.0-30.0)
--- NOTE | 2021-06-19 10:03 | HMH.PTEV ---
Physical Therapy Evaluation Rehab PT IP Evaluation Start: 06/19/21 08:14 Freq: ONCE Status: Active Protocol: Document 06/19/21 09:46 BENJAMIN (Rec: 06/19/21 10:03 BENJAMIN [id number]) Subjective/History History History 81-year-old white female who has significant comorbidities of weakness, chronic osteoarthritis, recurrent atrial fibrillation currently on Eliquis therapy who presented to my office with nausea, vomiting, reports that she is been in the [facility] ER a couple of times with nausea and vomiting, has been apparently diagnosed with a UTI and treated with IV antibiotics but she does not recall that any antibiotics were given to her to go home with. She been feeling poorly over the past 3 or 4 days and came to the office today where she was found to have low blood pressure, dehydration, admitted to hospital. copied from H&P Subjective Subjective Pt reports she is very tired and cold and does not wsh to participate - pt finally convinced to participate Rehab PT IP Eval Objective Appearance Patient Behavior Passive,Fatigued,Uncooperative Patient Orientation Name,Birthday,Year Difficulty following instructions none Speech Pattern Soft-Spoken,Mumbled Ambulation Patient Able to Ambulate Yes Ambulation Observation IP General Gait Pattern Observation Shuffling Step Ambulation Distance (feet) 5 Ambulation Assistive Device None Ambulation Ability Contact Guard/Hand Hold Balance Ability to Arise Able, uses arms to help Sitting Balance Steady, safe Standing Balance Narrow stance w/o support Dynamic Sitting Balance Ability Good Dynamic Standing Balance Ability Fair Transfers Bed Transfer Ability Supervision/Stand by Chair Transfer Ability Supervision/Stand by Sit to Stand Bed Transfer Ability Contact Guard/Hand Hold Sit to Stand Chair Transfer Ability Contact Guard/Hand Hold Rehab PT IP prob,goals,plan Problems Date of Evaluation: 06/19/21 PT IP Pr
--- NOTE | 2021-06-19 10:14 | HMH.OTEV ---
OT Inpatient Evaluation Rehab OT IP Evaluation Start: 06/19/21 08:13 Freq: ONCE Status: Complete Protocol: Document 06/19/21 09:57 [facility] (Rec: 06/19/21 10:12 [facility] [id number]) Rehab OT IP Assessment Subjective History Pt oriented x 3 on arrival. Pt agreeable to engage in therapy evaluation. Pt was admitted following an office visit on 06/18/21 due to weakness/fatigue and nausea. The following information was copied from PCP's history and physical report: 81-year-old white female who has significant comorbidities of weakness, chronic osteoarthritis, recurrent atrial fibrillation currently on Eliquis therapy who presented to my office with nausea, vomiting, reports that she is been in the [facility] ER a couple of times with nausea and vomiting, has been apparently diagnosed with a UTI and treated with IV antibiotics but she does not recall that any antibiotics were given to her to go home with. She been feeling poorly over the past 3 or 4 days and came to the office today where she was found to have low blood pressure, dehydration, admitted to hospital. Pt has a past medical history of Anxiety, Arrhythmia, Asthma , Atrial Fibrillation, Depression, Gastroesophageal Reflux Disease(GERD), Hyperlipidemia, Hypertension, Internal Pacemaker ( defibrillator) Pt reports prior to being admitted to the hospital she lived with her daughter and her daughter's boyfriend. Pt claims she was independent with ADLs such as feeding and dressi
[2021-06-19 10:22] VITALS: BMI 24.5
--- NOTE | 2021-06-19 12:15 | PC.NURSE ---
REPORT CALLED TO COSME IN OB. PT IS EATING LUNCH AT THIS TIME. WILL TRANSFER PT ONCE SHE FINISHES.
[2021-06-19 16:00] VITALS: BP 123/71; PULSE 88; RESP 17; TEMP 36.6; O2SAT 95
[2021-06-19 16:27] LABS: Chloride 103 mmol/L (98-107); Potassium 4.3 mmoL/L (3.5-5.1); Sodium 128 mmol/L (136-145)
[2021-06-19 16:30] LABS: Anion Gap 6.3 mEq/L (5-15); Blood Urea Nitrogen 24 mg/dl (7-17); Carbon Dioxide 23 mmol/L (22.0-30.0); Creatinine Clearance Estimated 38 mL/min (50-200); Estimated Glomerular Filt Rate 60 ml/min (>60); GFR (African American) 73 ML/MIN (>60)
[2021-06-19 16:31] LABS: Calcium 7.6 mg/dl (8.4-10.2); Glucose 90 mg/dl (74-100)
--- NOTE | 2021-06-19 17:22 | PC.NURSE ---
A&OX4. TOLERATING RA WELL. UROSTOMY PRESENT. CDI. URINE DARK YELLOW IN COLOR, STRONG ODOR WITH SEDIMENT PRESENT. PT C/O BURNING DURING URINATION AND GENERALIZED PAIN. TYLENOL ADMINISTERED PER MAR. RELIEF NOTED. PT HAS GOOD APPETITE. NO OTHER C/O THUS FAR. VSS WILL CONTINUE TO MONITOR.
[2021-06-19 20:00] VITALS: BP 90/69; PULSE 110; RESP 18; TEMP 36.6; O2SAT 96
[2021-06-20 00:15] VITALS: BP 106/53; PULSE 101; RESP 16; TEMP 36.7; O2SAT 95
[2021-06-20 05:00] VITALS: BP 94/68; PULSE 112; RESP 16; TEMP 36.7; O2SAT 94
--- NOTE | 2021-06-20 05:00 | PC.NURSE ---
PT HAS SLEPT THROUGHTOUT THE NIGHT.PT HAS C/O SOME PAIN NOW WITH VOIDING,TYLENOL GIVEN,700ML OF DARK YELLOW URINE NOTED FROM UROSTOMY WHICH SOME SEDIMENT NOTED ,PT AFIBRILE SOME TACHYCARDIA 101-112 NOTED TONIGHT
[2021-06-20 06:58] LABS: Basophils # 0.1 K/mm3 (0-0.2); Eosinophils # 0.2 K/mm3 (0.0-0.4); Eosinophils % 2.8 % (0.1-12.0); Hematocrit 32.7 % (37.0-47.0); Hemoglobin 10.6 g/dL (12.2-16.2); Lymphocytes % 31.6 % (10-50); Mean Corpuscular HGB Conc 32.5 g/dL (31.8-35.4); Mean Corpuscular Volume 92.3 fl (81-99); Mean Platelet Volume 8.4 fl (7.4-10.4); Monocytes # 0.4 K/mm3 (0.1-1.0); Monocytes % 6.1 % (1.7-9.3); Neutrophils # 3.7 K/mm3 (1.8-7.8); Neutrophils % 58.5 % (37.0-80.0); Platelet Count 325 K/mm3 (142-424); Red Blood Count 3.54 M/mm3 (4.20-5.40); Red Cell Distribution Width 15.6 % (11.5-17.5); White Blood Count 6.3 K/mm3 (4.8-10.8)
[2021-06-20 07:06] LABS: Chloride 110 mmol/L (98-107); Potassium 3.9 mmoL/L (3.5-5.1); Sodium 133 mmol/L (136-145)
[2021-06-20 07:09] LABS: Anion Gap 3.9 mEq/L (5-15); Carbon Dioxide 23 mmol/L (22.0-30.0)
[2021-06-20 07:10] LABS: Calcium 6.8 mg/dl (8.4-10.2); Glucose 89 mg/dl (74-100)
[2021-06-20 07:14] LABS: Blood Urea Nitrogen 17 mg/dl (7-17)
[2021-06-20 07:15] LABS: Creatinine Clearance Estimated 38 mL/min (50-200); Estimated Glomerular Filt Rate 69 ml/min (>60); GFR (African American) 84 ML/MIN (>60)
--- NOTE | 2021-06-20 07:46 | CT_ITS ---
FINAL REPORT CLINICAL HISTORY: abdominal distension, nausea, pain COMPARISON: 06/14/2021 FINDINGS: Technique: The patient was injected with intravenous contrast. Axial images through the abdomen and pelvis were performed. Oral contrast was given. This study was performed with techniques to keep radiation doses as low as reasonably achievable (ALARA). Individualized dose reduction techniques using automated exposure control or adjustment of mA and/or kV according to the patient's size were employed. Abdomen: There are small bilateral pleural effusions with mild bibasilar atelectasis. There is a small hiatal hernia. There is a 17 mm right periesophageal soft tissue nodule which is partially imaged of uncertain etiology, could represent adenopathy. The liver is normal in size and attenuation. Gallstones are noted. There is no biliary ductal dilatation. The spleen is unremarkable. The adrenals are normal. The pancreas is unremarkable. There is left renal scarring. There is moderate vascular calcification. The aorta is normal in caliber. There is no free fluid. Pelvis: The appendix is not visualized. There is descending and sigmoid diverticulosis. There is diffuse bladder wall thickening with adjacent fat stranding, likely inflammatory. Right pelvis ostomy is identified. The patient is status post hysterectomy. There is an intrathecal catheter. There is no free fluid or adenopathy. IMPRESSION: Right periesophageal soft tissue nodule, could represent adenopathy. Chest CT could further evaluate. Cholelithiasis. Bladder wall thickening with adjacent fat stranding, likely inflammatory. Reviewed, Interpreted and Dictated by Santino Bustamante III, MD Transcribed by Tyra Zaragoza Authenticated by Santino Bustamante III, MD on 06/20/2021 01:38:17 PM [facility]
[2021-06-20 08:00] VITALS: BP 123/78; PULSE 111; RESP 18; TEMP 36.7; O2SAT 93
[2021-06-20 11:55] VITALS: BP 105/56; PULSE 89; RESP 17; TEMP 36.8; O2SAT 93
[2021-06-20 13:51] LABS: Chloride 110 mmol/L (98-107); Potassium 3.9 mmoL/L (3.5-5.1); Sodium 133 mmol/L (136-145)
[2021-06-20 13:54] LABS: Alanine Aminotransferase 15 U/L (12-78); Albumin Level 2.5 g/dl (3.5-5.0); Alkaline Phosphatase 52 U/L (38-126); Anion Gap 2.9 mEq/L (5-15); Aspartate Amino Transferase 32 U/L (14-36); Bilirubin,Total 0.4 mg/dl (0.2-1.3); Blood Urea Nitrogen 17 mg/dl (7-17); Calcium 6.9 mg/dl (8.4-10.2); Carbon Dioxide 24 mmol/L (22.0-30.0); Creatinine Clearance Estimated 38 mL/min (50-200); Estimated Glomerular Filt Rate 69 ml/min (>60); GFR (African American) 84 ML/MIN (>60); Globulin 2.4 g/dL (1.3-3.2); Glucose 81 mg/dl (74-100); Total Protein,Serum 4.9 g/dl (6.3-8.2)
[2021-06-20 16:00] VITALS: BP 107/67; PULSE 104; RESP 18; TEMP 36.8; O2SAT 93
--- NOTE | 2021-06-20 18:13 | PC.NURSE ---
A&OX4. TOLERATING RA WELL. PT HAS HAD NO C/O THUS FAR THIS SHIFT. PT UP TO BATHROOM WITH STANDBY ASSIST. PT HAS HAD 2 EPISODES OF DIARRHEA THUS FAR. UROSTOMY EMPTIED, URINE CONTINUES TO BE DARK YELLOW IN COLOR WITH SEDIMENT PRESENT. VSS WILL CONTINUE TO MONITOR.
--- NOTE | 2021-06-20 18:37 | HMH.DCSUM ---
General - General Admission date:: 06/18/21 Discharge date: 06/20/21 HPI HPI: 81-year-old white female who has significant comorbidities of weakness, chronic osteoarthritis, recurrent atrial fibrillation currently on Eliquis therapy who presented to my office with nausea, vomiting, reports that she is been in the [facility] ER a couple of times with nausea and vomiting, has been apparently diagnosed with a UTI and treated with IV antibiotics but she does not recall that any antibiotics were given to her to go home with. She been feeling poorly over the past 3 or 4 days and came to the office today where she was found to have low blood pressure, dehydration, admitted to hospital. Hospital Course Hospital Course: 81-year-old female admitted for nausea, concern for UTI. Urine culture obtained. Did not grow anything during admission. Antibiotics stopped at time of discharge because there is no indication to continue. Imaging of bili concerning for thickening at distal esophagus with enlarged node. Otherwise no significant acute findings in the abdomen. Some slight stranding around bladder. Would benefit from further work-up as an outpatient with EGD to investigate distal esophageal thickening. At this time however she is tolerating p.o. intake. No emesis during hospitalization. Had a bowel movement in her ostomy bag on day of discharge. Is afebrile and hemodynamically stable. Medically stable for discharge home with close follow-up in the outpatient setting for further management. Objective Vital signs: Temp Pulse Resp BP Pulse Ox 98.2 F 104 H 18 107/67 L 93 L 06/20/21 16:00 06/20/21 16:00 06/20/21 16:00 06/20/21 16:00 06/20/21 16:00 no acute distress, chronically ill appearing - *Routine HEENT Exam Head: Present: normocephalic Eye: Present: EOMI, PERRL ENT: Present: mucous membranes moist - *Routine Neck Exam Present: supple - *Routine Respiratory Exam Present: CTA bilaterally - *Routine Cardiovascular Exam Present: irregularly irregular - *Routine Abdominal Exam Present: soft, normoactive bowel sounds, tenderness (non focal, Colostomy in RLQ) - *Routine Extremities Exam Absent: cyanosis, clubbing, edema - *Routine Skin Exam Present: warm. Absent: rash Results Labs on day of discharge: Labs from last 24 hours 06/20/21 06/20/21 06/20/21 06:45 06:45 06:45 WBC 6.3 RBC 3.54 L Hgb 10.6 L Hct 32.7 L MCV 92.3 MCH 30.0 MCHC 32.5 RDW 15.6 Plt Count 325 MPV 8.4 Neut % (Auto) 58.5 Lymph % (Auto) 31.6 Webster % (Auto) 6.1 Eos % (Auto) 2.8 Baso % (Auto) 1.0 Neut # (Auto) 3.7 Lymph # (Auto) 2.0 Webster # (Auto) 0.4 Eos # (Auto) 0.2 Baso # (Auto) 0.1 Sodium 133 L 133 L Potassium 3.9 3.9 Chloride 110 H 110 H Carbon Dioxide 24 23 Anion Gap 2.9 L 3.9 L BUN 17 17 D Creatinine 0.80 0.80 Estimated Creat Clear 38 38 Estimated GFR 69 69 Est GFR ( Amer) 84 84 Glucose 81 89 Calcium 6.9 L 6.8 L Total Bilirubin 0.4 AST 32 ALT 15 Alkaline Phosphatase 52 Total Protein 4.9 L Albumin 2.5 L Globulin 2.4 Albumin/Globulin Ratio 1.0 L Preliminary micro results at discharge 06/18/21 19:46 Urine Culture - Preliminary Urine,Clean Catch DS: Diagnosis - Discharge Diagnosis (1) Abdominal pain Status: Acute (2) UTI (urinary tract infection) Status: Acute (3) Atrial fibrillation Status: Chronic Discharge Plan - Patient Discharge Instructions ACTIVITY: Continue current activity DIET: continue same diet Patient Instructions: Atrial Fibrillation, DI for Urinary Tract Infection (UTI), DI for Abdominal Pain-Adult - Follow up Plan Follow up with: Giovani Barajas MD [Primary Care Provider] - Disposition: Home, Self-Care Condition at discharge:: Stable Home Medications: Home Medications Medication Instructio
--- NOTE | 2021-06-20 19:22 | PC.NURSE ---
Pt off the unit at this time per wheelchair to a private vehicle
== END 2021-06-20 19:20 | disposition home or self-care (01) ==
LOC: ICU 06-19 13:10 → OB 06-19 13:30
PROVIDERS: Internal Medicine Adolescent Medicine; Admitting Provider Internal Medicine Adolescent Medicine; PCP Internal Medicine Adolescent Medicine; Visit Provider Internal Medicine Adolescent Medicine
DX: N39.0 Urinary tract infection, site not specified (principal); I48.91 Unspecified atrial fibrillation; Z79.01 Long term (current) use of anticoagulants; Z79.899 Other long term (current) drug therapy; Z95.810 Presence of automatic (implantable) cardiac defibrillator; I10 Essential (primary) hypertension; K21.9 Gastro-esophageal reflux disease without esophagitis; Z20.822 Contact with and (suspected) exposure to COVID-19
CPT/HCPCS: G0378; G0379; 36415; 71045; 74177; 80048; 80053; 81001; 83605; 83735; 85025; 87040; 87086; 87088; 87186; 93005; 97162; 97166; C9803; J0696; Q9967; U0003; U0005

== ENCOUNTER 2021-07-04 15:08 | Emergency (ER) | payer MEDICARE, OTHER, SELFPAY ==
[2021-07-04 15:10] VITALS: BP 119/73; PULSE 71; RESP 20; TEMP 36.8; O2SAT 95; BMI 25.2
--- NOTE | 2021-07-04 15:25 | PC.NURSE ---
ER at bedside
--- NOTE | 2021-07-04 15:32 | CT_ITS ---
FINAL REPORT TECHNIQUE: Axial images through the abdomen and pelvis were performed without contrast. This study was performed with techniques to keep radiation doses as low as reasonably achievable, (ALARA). Individualized dose reduction techniques using automated exposure control or adjustment of mA and/or kV according to the patient's size were employed. CLINICAL HISTORY: pain pump issues COMPARISON: June 20, 2021 FINDINGS: Abdomen: A cavitary nodule in the posterior left lung base on image 1 measures 1.4 x 0.9 cm and is stable. There is a small to moderate hiatal hernia. The liver parenchyma is homogeneous. Again seen are gallstones in the gallbladder. The spleen, pancreas, adrenals and kidneys are unremarkable. A stimulator device is seen in the lumbar spinal canal. The previous right hydronephrosis has resolved. Pelvis: There are postoperative changes in the pelvis. There is a prior bowel anastomosis in the mid pelvis. There is significant inflammation adjacent to the base of the bladder. There is a right anterior pelvic wall ostomy. IMPRESSION: Resolution of previous right hydronephrosis with persistent mucosal thickening and inflammation surrounding the base of the bladder. Gallstones. Small to moderate hiatal hernia. Posterior left lung base nodule, stable. Reviewed, Interpreted and Dictated by Antonio Wells MD Transcribed by Jersey Segundo Authenticated by Antonio Wells MD on 07/04/2021 04:36:23 PM [facility]
--- NOTE | 2021-07-04 15:40 | PC.NURSE ---
Patient to CT with radiology ct technologist
--- NOTE | 2021-07-04 15:44 | PC.NURSE ---
Patient back from radiology
[2021-07-04 16:00] VITALS: BP 125/81; PULSE 75; RESP 16; O2SAT 95
[2021-07-04 16:30] VITALS: BP 117/75; PULSE 76; RESP 15; O2SAT 96
--- NOTE | 2021-07-04 16:36 | HMH.EDBACK ---
ED Disposition Clinical Impression: Strain of lumbar region Qualifiers: Encounter type: initial encounter Qualified Code(s): S39.012A - Strain of muscle, fascia and tendon of lower back, initial encounter Disposition: Home, Self-Care Condition on Discharge: Good Instructions: DI for Low Back Pain Referrals: Giovani Barajas MD [Primary Care Provider] - - Critical Care Critical Care Time: No Attestation: On 07/04/21, the high probability of a clinically significant, sudden or life threatening deterioration of the following system(s) required my full and direct attention, intervention and personal management. The time I documented below is in addition to time spent performing reported procedures but includes the following listed in this critical care notation. Medical Decision Making - Medical Records Medical records reviewed: Yes: I reviewed the patient's medical records. - Nithin Inquiry Pt receiving controlled substance: No Vital Signs: 07/04/21 15:10 07/04/21 16:00 07/04/21 16:30 Temperature 98.2 F Temperature Source Oral Pulse Rate 75 76 Pulse Rate [Left Radial] 71 Respiratory Rate 20 16 15 Blood Pressure 125/81 117/75 Blood Pressure [Left Arm] 119/73 Blood Pressure Mean [Left Arm] 88 Blood Pressure Source [Left Arm] Automatic Cuff Blood Pressure Position [Left Arm] Sitting 02 Sat by Pulse Oximetry 95 95 96 Oxygen Delivery Method Room Air - CT Data CT Scan: Abdomen, Pelvis Time Received: 17:[address] Reviewed: Yes: I have reviewed the patient's CT results, I have viewed the radiologist's interpretation Findings Narrative: IMPRESSION: Resolution of previous right hydronephrosis with persistent mucosal thickening and inflammation surrounding the base of the bladder. Gallstones. Small to moderate hiatal hernia. Posterior left lung base nodule, stable. - Reevaluation(s) Time: 17:32 Reevaluation #1: On reevaluation, patient is feeling fine. Again there is no respiratory depression or any signs of narcotic overdose. CT was unremarkable. Patient was given strict return precautions. Verbalized understanding. Medical Decision Narrative: 81-year-old female presenting for evaluation of the pain pump. There does not appear to be any obvious abnormality. Will obtain imaging of the site. Patient is no evidence of respiratory depression or narcotic overdose. Work-up initiated. Back Pain HPI - General Chief Complaint: Back Pain/Injury Stated Complaint: burning sensation near pain pump on back Time Seen by Provider: 07/04/21 15:20 Mode of Arrival: Ambulatory Limitations: No Limitations Description of Symptoms (Recalled from ER Triage Doc. by RN): Pt advises that she has a morphine pain pump r/t previous back injury. States that last night she felt a pop and burning sensation at pump site. Pt denies pain at this time, but advises that daughter wishes to have pt evaluated. - History of Present Illness HPI Narrative: Is a 81-year-old female presented to the emergency department for evaluation of her pain pump. The patient has a pain pump placed secondary to chronic back pain. She states that she was laying in bed last night when she felt a pop and has had some burning sensation near the pain pump area. The patient would do is not doing any twisting bending or moving at the time that this occurred. Family member was concerned that it was leaking medicine into her body. The patient is not had any drowsiness or respiratory depression. States that the pain is a dull burning sensation in the back. Nonradiating. She has had no dysuria. No neurologic deficit. She denies any headache or change in vision. No focal weakness. No chest pain or shortness of breath. Abdominal pain or body pain or diarrhea. - Related Data Home Medications Medication Instructions Recorded Confirmed dilTIAZem HCl [Diltiazem 180mg 180 mg PO DAILY 11/20/19 06/19/21 24Hr ER Cap] Morphine Sulfate 0.62 mg IT CO
[2021-07-04 17:51] VITALS: BP 121/74; PULSE 77; RESP 18; TEMP 36.8; O2SAT 97
== END 2021-07-04 17:52 | disposition home or self-care (01) ==
PROVIDERS: Emergency Provider Emergency Medicine; PCP Internal Medicine Adolescent Medicine
DX: S39.012A Strain of muscle, fascia and tendon of lower back, initial encounter (principal); K21.9 Gastro-esophageal reflux disease without esophagitis; I10 Essential (primary) hypertension; E78.5 Hyperlipidemia, unspecified; I48.0 Paroxysmal atrial fibrillation; F41.8 Other specified anxiety disorders; Z79.899 Other long term (current) drug therapy
CPT/HCPCS: 74176; 99282

== ENCOUNTER 2021-09-01 12:46 | Day surgery (SDC) | payer MEDICARE, OTHER, SELFPAY ==
[2021-09-01 12:59] VITALS: BP 134/80; PULSE 70; RESP 18; TEMP 36.4; O2SAT 94; BMI 24.0
[2021-09-01 13:04] VITALS: BP 129/85; PULSE 70; RESP 18; O2SAT 95
[2021-09-01 13:05] VITALS: BP 138/86; PULSE 74; RESP 18; O2SAT 94
--- NOTE | 2021-09-01 13:11 | HMH.PMPROC ---
- Procedure Date: 09/01/21 Time: 13:11 Anesthesiologist:: Paul Ford CRNA Complications:: None Pre-procedure Diagnosis:: Disc disease lumbar spine multilevels. Lumbar radiculopathy symptoms. Post-procedure Diagnosis:: Same Indications for Procedure:: Very pleasant 81-year-old lady we are managing with morphine 5 mg/mL intrathecal pain pump. Today she presents for refill. She currently is running at 0.7480 mg/day. Patient states the pump is taking care of her pain. Procedure Details:: Details of the procedure were explained to the patient. The patient was taken to the procedure room and placed in the sitting position. The area over the intrathecal pain pump was cleaned using chlorhexidine as a cleansing solution. The pump was accessed with a 22-gauge needle. No difficulty. 5 mL was withdrawn and discarded appropriately. The pump was then filled with 20 cc of morphine sulfate 5 mg/mL in incremental doses. Patient tolerated the procedure without difficulty. There are no complications. Plan and Disposition:: Patient was discharged without incident.
[2021-09-01 13:14] VITALS: BP 136/85; PULSE 71; RESP 20; O2SAT 94
== END 2021-09-01 13:15 | disposition home or self-care (01) ==
PROVIDERS: PCP Internal Medicine Adolescent Medicine; Visit Provider Nurse Anesthetist, Certified Registered
DX: M51.16 Intervertebral disc disorders with radiculopathy, lumbar region (principal); Z45.1 Encounter for adjustment and management of infusion pump; I10 Essential (primary) hypertension; F03.90 Unspecified dementia, unspecified severity, without behavioral disturbance, psychotic disturbance, mood disturbance, and anxiety; I48.91 Unspecified atrial fibrillation; E78.5 Hyperlipidemia, unspecified; Z95.0 Presence of cardiac pacemaker; J45.909 Unspecified asthma, uncomplicated; D64.9 Anemia, unspecified
CPT/HCPCS: 95991

== ENCOUNTER 2021-12-19 09:55 | Day surgery (SDC) | payer MEDICARE, OTHER, SELFPAY ==
[2021-12-19 10:14] VITALS: BP 131/77; PULSE 70; TEMP 36.3; O2SAT 95; BMI 24.8
[2021-12-19 10:30] VITALS: BP 156/89; PULSE 71; RESP 20; O2SAT 94
--- NOTE | 2021-12-19 10:38 | HMH.PMPROC ---
- Procedure Date: 12/19/21 Time: 10:38 Anesthesiologist:: Paul Ford CRNA Complications:: None Pre-procedure Diagnosis:: Degenerative disc disease of lumbar spine with lumbar radiculopathy symptoms Post-procedure Diagnosis:: Same Indications for Procedure:: Patient is a pleasant 81-year-old female who presents today for intrathecal pain pump refill and reprogram. We are currently treating the patient for degenerative disc disease of lumbar spine with lumbar radiculopathy symptoms. Today she rates her pain a 1 out of 10. She denies any new trauma or injury to the site. She denies any change to the location or type of pain she experiences. We are currently managing the patient with morphine 5 mg/mL with a daily dose of 0.748 mg/day. Patient denies any side effects from this medication. She states this medication is adequately managing her pain her Nithin is [id number]. It has been reviewed and appropriate. Procedure Details:: Informed consent was obtained and the risk and benefits of the procedure were explained to the patient. The patient was taken to the procedure room where noninvasive monitoring was placed on the patient including a noninvasive blood pressure cuff and pulse oximeter. Patient's pump was interrogated. The area over the pump was cleansed with a chlorhexidine solution. In a sterile fashion the pump was accessed using a 22-gauge needle. Approximately 4 mL of pump solution was removed and discarded appropriately. The pump was then refilled with 20 mL of morphine 5 mg/mL. The needle was withdrawn and bandage placed over the puncture site. The infusion rate was reprogrammed and continued at morphine 0.748 mg/day. The patient tolerated the procedure well with no complications. Plan and Disposition:: We will see the patient back at the clinic at the next intrathecal pain pump refill. Patient has been instructed to contact the clinic with any concerns before the next appointment. Dr. Poon reviewed this note and agrees with this plan of care. This note was dictated using voice recognition software and may contain errors or omissions.
[2021-12-19 10:39] VITALS: BP 144/78; PULSE 70; RESP 18; O2SAT 94
== END 2021-12-19 10:40 | disposition home or self-care (01) ==
LOC: SC.PAINP 09:56
PROVIDERS: PCP Internal Medicine Adolescent Medicine; Visit Provider Nurse Anesthetist, Certified Registered
DX: M51.16 Intervertebral disc disorders with radiculopathy, lumbar region (principal)
CPT/HCPCS: 95991

== ENCOUNTER 2022-03-27 09:53 | Day surgery (SDC) | payer MEDICARE, OTHER, SELFPAY ==
[2022-03-27 10:18] VITALS: BP 135/86; PULSE 78; RESP 18; TEMP 36.3; O2SAT 96; BMI 25.0
[2022-03-27 10:29] VITALS: BP 116/67; PULSE 72; RESP 18; O2SAT 95
--- NOTE | 2022-03-27 10:35 | EXP.PAIN.PRO ---
Procedure Date: 03/27/22 Time: 10:32 Anesthesiologist:: Paul Ford CRNA Complications:: None Pre-procedure Diagnosis:: Degenerative disc disease of the lumbar spine with lumbar radiculopathy symptoms Post-procedure Diagnosis:: Same Indications for Procedure:: Patient is a pleasant 81-year-old female who presents today for intrathecal pain pump refill and reprogram. We are currently treating the patient for degenerative disc disease of lumbar spine with lumbar radiculopathy symptoms. Today she rates her pain a 8 out of 10. Patient denies any new trauma or injury. Patient denies any change to location or type of pain she experiences. Patient states her pain is just worsened over time. We are currently treating the patient with morphine 5 mg/mL with a daily dose of 0.748mg/day. Patient denies any side effects from this medication. She states this medication does help manage her pain symptoms. General: Alert and oriented x3, no acute distress, pleasant and cooperative Lungs: Respiration even unlabored, symmetrical chest expansion Eyes: PERRL Musculoskeletal: Flexion and extension of lumbar spine somewhat guarded secondary to pain, antalgic gait noted Neurological: Speech clear, no gross sensory deficit Procedure Details:: Informed consent was obtained and the risk and the benefits of the procedure were explained to the patient. The patient was taken to the procedure room where noninvasive monitoring such as a noninvasive blood pressure cuff and pulse oximeter was placed on the patient. The patient's pump was interrogated with 4.87 mL expected. The area over the patient's pump was cleansed with ChloraPrep as a cleansing solution. Using a 22-gauge needle and aseptic technique the pump was accessed with 5 mL of solution withdrawn and discarded appropriately. In the pump was filled with 20 mL of solution of morphine 4.8 mg/mL. The needle was withdrawn and a sterile bandage was placed over the site. The pump was then reinterrogated and increased by 5% to morphine 0.7854 mg per day. Patient tolerated the procedure well with no complications. Plan and Disposition:: Patient was monitored in the clinic setting for a short period of time following this procedure and discharged neurologically intact. Patient will return to clinic at her next intrathecal refill date. Patient has been counseled to contact the office with any questions or concerns before the next appointment date. Dr. Poon has read this note and agrees with this plan of care. This note was dictated using voice recognition software and may contain errors or omissions.
[2022-03-27 10:50] VITALS: BP 114/74; PULSE 78; RESP 20; O2SAT 96
== END 2022-03-27 10:51 | disposition home or self-care (01) ==
PROVIDERS: PCP Internal Medicine Adolescent Medicine; Visit Provider Nurse Anesthetist, Certified Registered
DX: M51.16 Intervertebral disc disorders with radiculopathy, lumbar region (principal)
CPT/HCPCS: 62370

== ENCOUNTER 2022-07-28 13:49 | Day surgery (SDC) | payer MEDICARE, OTHER, SELFPAY ==
[2022-07-28 14:05] VITALS: BP 139/79; PULSE 71; RESP 18; TEMP 36.4; O2SAT 93; BMI 25.0
[2022-07-28 14:17] VITALS: BP 120/93; PULSE 73; RESP 18; O2SAT 97
[2022-07-28 14:19] VITALS: BP 120/93; PULSE 73; RESP 18; O2SAT 97
--- NOTE | 2022-07-28 14:25 | EXP.PAIN.PRO ---
Procedure Date: 07/28/22 Time: 14:00 Anesthesiologist:: Paul Ford CRNA Complications:: None Pre-procedure Diagnosis:: Degenerative disc disease lumbar spine multilevels. Lumbar radiculopathy Post-procedure Diagnosis:: Same. Indications for Procedure:: Patient is a very pleasant 82-year-old female that comes our clinic today for intrathecal pain pump interrogation and refill. Patient currently being managed with intrathecal morphine sulfate 5 mg/mL. She is currently being managed with a daily dose of 0.748 mg/day. Patient does not complain of any side effects or complications regarding intrathecal pain pump management. Procedure Details:: Details of the procedure explained to the patient. The patient taken to procedure room placed in the sitting position. The area over the pump was cleansed using chlorhexidine as a cleansing solution. The pump was interrogated. The pump was accessed with ease using a 22-gauge inch and a half needle. 0.5 mL of solution was withdrawn and discarded appropriately. The pump was then filled with 20 cc of solution containing morphine sulfate 5 mg/mL. The pump will remain at 0.7854 mg/day. Plan and Disposition:: Patient was discharged without incident.
[2022-07-28 14:30] VITALS: BP 125/84; PULSE 68; RESP 18; O2SAT 93
== END 2022-07-28 14:30 | disposition home or self-care (01) ==
PROVIDERS: PCP Internal Medicine Adolescent Medicine; Visit Provider Nurse Anesthetist, Certified Registered
DX: Z45.1 Encounter for adjustment and management of infusion pump (principal); M51.16 Intervertebral disc disorders with radiculopathy, lumbar region
CPT/HCPCS: 95991

== ENCOUNTER 2022-11-03 13:26 | Day surgery (SDC) | payer MEDICARE, OTHER, SELFPAY ==
[2022-11-03 13:44] VITALS: BP 127/76; PULSE 77; RESP 16; TEMP 36.1; O2SAT 96; BMI 25.2
[2022-11-03 14:07] VITALS: BP 112/69; PULSE 70; RESP 18; O2SAT 96
[2022-11-03 14:08] VITALS: BP 112/69; PULSE 70; RESP 18; O2SAT 96
[2022-11-03 14:16] VITALS: BP 116/73; PULSE 54; RESP 18; O2SAT 95
--- NOTE | 2022-11-03 14:17 | EXP.PAIN.PRO ---
Procedure Date: 11/03/22 Time: 14:15 Anesthesiologist:: Paul Ford CRNA Complications:: None Pre-procedure Diagnosis:: Degenerative disc disease lumbar spine multilevels. Lumbar radiculopathy. Post-procedure Diagnosis:: Same Indications for Procedure:: Patient is a pleasant 82-year-old female comes our clinic today for intrathecal pain pump interrogation refill. Patient currently being managed with morphine sulfate 5 mg/mL at 0.7854 mg/day. She reports no complications or side effects from the current management. Patient complaining today of some moderate thoracic spine pain around the T6 area. I told the patient we would continue to monitor this for severity. Patient states is not too bad unless I am doing something . Procedure Details:: Details of the procedure explained to the patient. The patient taken the procedure room placed in the sitting position. The area over the pump was cleaned using chlorhexidine as a cleansing solution. The pump was interrogated. The pump was accessed with ease using a 22-gauge inch and half needle. 4 mL of solution was withdrawn and discarded appropriately. The pump was then filled with 20 cc incrementally of morphine sulfate 5 mg/mL. The pump rate will remain the same at 0.7854 mg/day. Plan and Disposition:: Patient was discharged without incident.
== END 2022-11-03 14:16 | disposition home or self-care (01) ==
LOC: SC.PAINP 13:28
PROVIDERS: PCP Internal Medicine Adolescent Medicine; Visit Provider Nurse Anesthetist, Certified Registered
DX: M51.16 Intervertebral disc disorders with radiculopathy, lumbar region (principal)
CPT/HCPCS: 95991

== ENCOUNTER → 2023-01-26 13:24 | Day surgery (SDC) | payer MEDICARE, OTHER, SELFPAY ==
[2023-01-26 13:31] VITALS: BP 125/81; PULSE 71; RESP 18; TEMP 36.6; O2SAT 96; BMI 23.2
[2023-01-26 13:42] VITALS: BP 128/80; PULSE 82; RESP 18; O2SAT 96
--- NOTE | 2023-01-26 13:45 | EXP.PAIN.PRO ---
Procedure Date: 01/26/23 Time: 13:45 Anesthesiologist:: Paul Ford CRNA Complications:: None Pre-procedure Diagnosis:: Degenerative disc lumbar spine multilevels. Lumbar radiculopathy. Post-procedure Diagnosis:: Same. Indications for Procedure:: Patient is a very pleasant 82-year-old female comes our clinic today for intrathecal pain pump interrogation and refill. She is currently being managed with morphine sulfate 5 mg/mL at 0.7854 mg/day. Patient complaining of low back pain she describes as constant, dull, aching. She rates pain 8/10. I recommend pump increase by 5%. Procedure Details:: Details of the procedure explained to the patient. The patient taken the procedure room placed in the sitting position. The area over the pump was cleansed using chlorhexidine as a cleansing solution. The pump was interrogated. The pump was accessed with ease using 22-gauge inch and half needle. 6.5 mL of solution was withdrawn and discarded appropriate. The pump was then filled with 20 cc of a solution containing morphine sulfate 5 mg/mL. The pump be increased by 5%.0.8250 milligrams per day. Patient tolerated procedure without difficulty. General complications Plan and Disposition:: Patient was discharged without incident.
[2023-01-26 13:51] VITALS: BP 140/62; PULSE 72; RESP 18; O2SAT 96
[2023-01-26 13:54] VITALS: BP 128/80; PULSE 82; RESP 18; O2SAT 97
== END | disposition home or self-care (01) ==
PROVIDERS: PCP Internal Medicine Adolescent Medicine; Visit Provider Nurse Anesthetist, Certified Registered
DX: M51.16 Intervertebral disc disorders with radiculopathy, lumbar region (principal); Z97.8 Presence of other specified devices
CPT/HCPCS: 95991

== ENCOUNTER 2023-04-27 11:55 | Day surgery (SDC) | payer MEDICARE, OTHER, SELFPAY ==
[2023-04-27 12:03] VITALS: BP 142/79; PULSE 76; TEMP 36.3; O2SAT 96; BMI 26.1
[2023-04-27 12:09] VITALS: BP 142/87; PULSE 78; RESP 18; O2SAT 96
[2023-04-27 12:10] VITALS: BP 142/87; PULSE 78; RESP 18; O2SAT 96
--- NOTE | 2023-04-27 12:16 | EXP.PAIN.PRO ---
Procedure Date: 04/27/23 Time: 12:10 Anesthesiologist:: Paul Ford CRNA Complications:: None Pre-procedure Diagnosis:: Degenerative disc lumbar spine multilevels. Lumbar radiculopathy Post-procedure Diagnosis:: Same. Indications for Procedure:: Patient is a very pleasant 82-year-old female comes our clinic today for intrathecal pain pump interrogation and refill. She is currently being managed with morphine sulfate 5 mg/mL at a rate of 0.8250 mg/day. Patient is doing very well with her current settings. She is not reporting any side effects or complications. Patient reports some midline low lumbar back pain with activity. Procedure Details:: Details of the procedure explained to the patient. The patient taken procedure room placed in the sitting position. The area of the pump is cleansed using chlorhexidine's cleansing solution. The pump was interrogated. The pump was accessed with ease using 22-gauge inch and half needle. 4 mL of solution was withdrawn discarded appropriately. The pump was then filled with 20 cc of a solution containing morphine sulfate 5 mg/mL. Rate will continue without change. Patient tolerated procedure without difficulty. There are no complications. Plan and Disposition:: Patient was discharged without incident.
[2023-04-27 12:33] VITALS: BP 149/81; PULSE 74; O2SAT 97
== END 2023-04-27 12:20 | disposition home or self-care (01) ==
PROVIDERS: PCP Internal Medicine Adolescent Medicine; Visit Provider Nurse Anesthetist, Certified Registered
DX: M51.16 Intervertebral disc disorders with radiculopathy, lumbar region (principal); Z97.8 Presence of other specified devices; Z45.1 Encounter for adjustment and management of infusion pump
CPT/HCPCS: 95991

== ENCOUNTER 2023-07-27 12:52 | Day surgery (SDC) | payer MEDICARE, OTHER, SELFPAY ==
[2023-07-27 13:23] VITALS: BP 125/74; PULSE 75; RESP 18; O2SAT 97; BMI 26.1
--- NOTE | 2023-07-27 13:44 | EXP.PAIN.PRO ---
Procedure Date: 07/27/23 Time: 13:50 Anesthesiologist:: Paul Ford CRNA Complications:: None Pre-procedure Diagnosis:: Degenerative disc lumbar spine multilevels. Lumbar radiculopathy. Bilateral sacroiliitis. Chronic pain syndrome. Post-procedure Diagnosis:: Same. Indications for Procedure:: Patient is a very pleasant 83-year-old female comes our clinic today for intrathecal pain pump interrogation refill. She is currently managed with morphine sulfate 5 mg at a rate of 0.8250 mg/day. She is doing very well with her current settings. Patient complaining of some overall discomfort around the pump. Otherwise, she is doing very well. Procedure Details:: Details of the procedure explained to the patient. The patient taken to procedure room placed in sitting position. They over the pumps cleansed using chlorhexidine's cleansing solution. The pump was interrogated. The pump was accessed with ease using a 22-gauge inch and half needle. 4.5 mL of solution was withdrawn discarded appropriate. The pump was then filled with 20 cc of solution containing morphine sulfate 5 mg/mL. The pump will continue at its current rate. Will be no changes. Patient tolerated procedure without difficulty. There are no complications. Plan and Disposition:: Patient was discharged without incident.
[2023-07-27 13:50] VITALS: BP 121/64; PULSE 68; RESP 18; O2SAT 97
== END 2023-07-27 13:50 | disposition home or self-care (01) ==
PROVIDERS: PCP Internal Medicine Adolescent Medicine; Visit Provider Nurse Anesthetist, Certified Registered
DX: M51.16 Intervertebral disc disorders with radiculopathy, lumbar region (principal); M46.1 Sacroiliitis, not elsewhere classified; G89.4 Chronic pain syndrome; Z97.8 Presence of other specified devices; Z45.1 Encounter for adjustment and management of infusion pump
CPT/HCPCS: 95991

== ENCOUNTER 2023-10-26 12:54 | Day surgery (SDC) | payer MEDICARE, OTHER, SELFPAY ==
[2023-10-26 13:15] VITALS: BP 119/74; PULSE 105; RESP 18; TEMP 36.8; O2SAT 95; BMI 24.0
--- NOTE | 2023-10-26 13:34 | EXP.PAIN.PRO ---
Procedure Date: 10/26/23 Time: 13:30 Anesthesiologist:: Paul Ford CRNA Complications:: None Pre-procedure Diagnosis:: Degenerative disc lumbar spine multilevels. Lumbar radiculopathy. Bilateral sacroiliitis. Chronic pain syndrome. Post-procedure Diagnosis:: Same. Indications for Procedure:: Patient is a very pleasant 83-year-old female comes our clinic today for intrathecal pain pump interrogation refill. She is currently being managed with morphine sulfate 5 mg/mL at a rate of 0.8250 mg/day. She is doing very well with her current settings. She is not reporting any side effects or discomfort. Procedure Details:: Details of the procedure explained to the patient. The patient taken procedure room placed in sitting position. They over the pumps cleansed using chlorhexidine cleansing solution. The pump was interrogated. The pump was accessed with ease using a 22-gauge inch and half needle. 5 mL of solution was withdrawn discarded appropriate. The pump was then filled 20 cc of solution containing morphine sulfate 5 mg/mL. Patient tolerated procedure without difficulty. There are no pump changes today. Patient was discharged without incident. Plan and Disposition:: Patient was discharged without incident.
[2023-10-26 13:39] VITALS: BP 124/77; PULSE 79; RESP 16; O2SAT 95
== END 2023-10-26 13:41 | disposition home or self-care (01) ==
PROVIDERS: PCP Internal Medicine Adolescent Medicine; Visit Provider Nurse Anesthetist, Certified Registered
DX: Z79.891 Long term (current) use of opiate analgesic (principal); M51.16 Intervertebral disc disorders with radiculopathy, lumbar region; M46.1 Sacroiliitis, not elsewhere classified; G89.4 Chronic pain syndrome; Z97.8 Presence of other specified devices; Z45.1 Encounter for adjustment and management of infusion pump
CPT/HCPCS: 95991

== ENCOUNTER 2024-01-25 13:04 | Day surgery (SDC) | payer MEDICARE, OTHER, SELFPAY ==
[2024-01-25 13:39] VITALS: BP 132/74; PULSE 71; RESP 16; TEMP 36.2; O2SAT 95; BMI 26.1
[2024-01-25 13:56] VITALS: BP 121/73; PULSE 73; RESP 18; O2SAT 98
--- NOTE | 2024-01-25 14:04 | P.PCN_ITS ---
Procedure Date: 01/25/24 Time: 13:35 Anesthesiologist:: Paul Ford CRNA Complications:: None Pre-procedure Diagnosis:: Degenerative disc lumbar spine multilevels. Lumbar radiculopathy. Bilateral sacroiliitis. Chronic pain syndrome. Post-procedure Diagnosis:: Same. Indications for Procedure:: Patient is a very pleasant 83-year-old female comes our clinic today for intrathecal pain pump interrogation and refill. Patient is currently being managed with morphine sulfate 5 mg/mL at 0.8250 mg/day. She is doing very well with her current settings. She is not requesting any changes. She is not reporting side effects or complications. Patient is awake alert [place] x 3. No acute distress. Flexion-extension lumbar spine somewhat guarded secondary to pain. Deep tendon reflexes upper lower extremities normal. Motor strength upper extremities normal. Lower extremities less than secondary to patient in wheelchair. Gait not assessed. Procedure Details:: Details of the procedure explained to the patient. Patient taken procedure room patient sitting position. The area of the pump was cleansed using chlorhexidine as a cleansing solution. The pump was interrogated. The pump was accessed with ease using a 22-gauge inch and half needle. 4 mL of solution was withdrawn discarded appropriate. The pump was then filled with 20 cc of solution containing morphine sulfate 5 mg/mL. No change in pump rate. Patient tolerated procedure without difficulty. There are no complications. Plan and Disposition:: Patient was discharged without incident.
== END 2024-01-25 13:56 | disposition home or self-care (01) ==
PROVIDERS: PCP Internal Medicine Adolescent Medicine; Visit Provider Nurse Anesthetist, Certified Registered
DX: M51.16 Intervertebral disc disorders with radiculopathy, lumbar region (principal); M46.1 Sacroiliitis, not elsewhere classified; G89.4 Chronic pain syndrome
CPT/HCPCS: 95991

== ENCOUNTER 2024-05-12 15:27 | Day surgery (SDC) | payer MEDICARE, OTHER, SELFPAY ==
[2024-05-12 14:59] VITALS: BP 134/75; PULSE 70; RESP 16; O2SAT 94
[2024-05-12 15:59] VITALS: BP 129/67; PULSE 70; RESP 16; TEMP 36.4; O2SAT 95; BMI 24.0
--- NOTE | 2024-05-12 16:23 | EXP.PAIN.PRO ---
Procedure Date: 05/12/24 Time: 16:45 Anesthesiologist:: Anya Browning APRN Complications:: None Pre-procedure Diagnosis:: Degenerative disc disease of lumbar spine with lumbar radiculopathy symptoms Post-procedure Diagnosis:: Same Indications for Procedure:: Patient is a pleasant 83-year-old female who presents today for intrathecal refill and reprogram. Today she rates her pain a 0 out of 10. Patient is currently managed with intrathecal morphine 5 mg/mL with a daily dose of 0.825 mg/day. She denies any side effects from this medication. Her Nithin has been reviewed and is appropriate. Physical Exam: General: Alert and oriented x3, no acute distress, pleasant and cooperative Lungs: Respirations even and unlabored, symmetrical chest expansion Eyes: PERRL Musculoskeletal: Flexion and extension of lumbar [spine] somewhat guarded secondary to pain, [antalgic gait noted] Neurological: Speech clear, no gross sensory deficit Procedure Details:: Informed consent was obtained and the risk and benefits of the procedure were explained to the patient. The patient had noninvasive monitoring placed including noninvasive blood pressure cuff and pulse oximeter. Patient's pump was interrogated. The area over the pump was cleansed with chlorhexidine as a cleansing solution. In sterile fashion the pump was accessed with a 22-gauge needle. Approximately 2 mls of the pump solution was removed and discarded appropriately. The pump was then refilled with 20 mL's of morphine 5 mg/mL]. The needle was withdrawn and a bandage was placed over the puncture site. The infusion rate was reprogrammed and continued at morphine 0.825 mg/day. The patient tolerated well with no complication. Plan and Disposition:: Patient tolerated her procedure well with no complications and was discharged neurologically intact. Patient will return to clinic for her next intrathecal refill date. We will see the patient back in the clinic at the next intrathecal refill. Patient has been instructed to contact the clinic with any concerns before the next appointment. Dr. Poon has reviewed this note and agrees with this plan of care. This note was dictated using voice recognition software and make contain errors or omissions. -- It Is medically necessary for this patient to continue to have their intrathecal pump refilled at regular intervals. This patient had an intrathecal pain pump implanted after meeting criteria of chronic intractable pain for greater than 3 months and failing conservative treatments. Patient has committed and been compliant to the treatment plan and all planned follow up care. Since implantation of the intrathecal pain pump, the patient has had decreased pain and been more functional. Oral medications have been reduced including intake of oral opioids. Patient continues to do well with intrathecal therapy with decrease in pain symptoms and increase in functional status. Stopping intrathecal medications can lead to life threatening withdrawal, seizures, cardiac arrest, severe pain, and possible . Pumps that are not refilled at regular intervals can be damages and cause and need for replacement. We continually titrate dose and concentration to optimize pain relief and function. We are limited in concentration for certain drugs to safely deliver medications through the pump and stay within the recommendations from the Polyanalgesic Consensus Committee Guidelines. Depending on dose and concentration these pumps may need to be refilled sooner than 3 months as we titrate. A UDS is needed to verify patient's compliance with our office pain contract. This is ordered based off specific treatments related to chronic pain with the potential to abuse certain medications.
== END 2024-05-12 16:59 | disposition home or self-care (01) ==
PROVIDERS: PCP Internal Medicine Adolescent Medicine; Visit Provider Nurse Practitioner Family
DX: M51.16 Intervertebral disc disorders with radiculopathy, lumbar region (principal)
CPT/HCPCS: 62370

== ENCOUNTER 2024-08-11 11:42 | Day surgery (SDC) | payer MEDICARE, OTHER, SELFPAY ==
[2024-08-11 11:51] VITALS: BP 96/58; PULSE 70; RESP 16; TEMP 36.4; O2SAT 96; BMI 24.0
--- NOTE | 2024-08-11 11:55 | EXP.PAIN.PRO ---
Procedure Date: 08/11/24 Time: 12:06 Anesthesiologist:: Anya Browning APRN Complications:: None Pre-procedure Diagnosis:: Degenerative disc disease of lumbar spine, chronic pain syndrome, chronic compression fracture L1 Post-procedure Diagnosis:: Same Indications for Procedure:: Patient is a pleasant 84-year-old female who presents today for intrathecal refill and reprogram. Today she rates her pain a 0 out of 10. She denies any new falls or injuries.She is managed with intrathecal morphine 5 mg/mL with a daily dose of 0.825 mg/day. She denies any side effects.She is also prescribed gabapentin from an outside provider. Her Nithin has been reviewed and is appropriate. Physical Exam: General: Alert and oriented x3, no acute distress, pleasant and cooperative Lungs: Respirations even and unlabored, symmetrical chest expansion Eyes: PERRL Musculoskeletal: Flexion and extension of lumbar [spine] somewhat guarded secondary to pain, [antalgic gait noted] Neurological: Speech clear, no gross sensory deficit Procedure Details:: Informed consent was obtained and the risk and benefits of the procedure were explained to the patient. The patient had noninvasive monitoring placed including noninvasive blood pressure cuff and pulse oximeter. Patient's pump was interrogated. The area over the pump was cleansed with chlorhexidine as a cleansing solution. In sterile fashion the pump was accessed with a 22-gauge needle. Approximately 5 mls of the pump solution was removed and discarded appropriately. The pump was then refilled with 20 mL's of morphine 5 mg/mL. The needle was withdrawn and a bandage was placed over the puncture site. The infusion rate was reprogrammed and continued at its current dosage. The patient tolerated well with no complication. Plan and Disposition:: Patient tolerated the procedure well with no complications and was discharged neurologically intact. Patient will return to clinic on or before their next intrathecal refill date. We will see the patient back in the clinic at the next intrathecal refill. Patient has been instructed to contact the clinic with any concerns before the next appointment. Dr. Poon has reviewed this note and agrees with this plan of care. This note was dictated using voice recognition software and make contain errors or omissions. -- It Is medically necessary for this patient to continue to have their intrathecal pump refilled at regular intervals. This patient had an intrathecal pain pump implanted after meeting criteria of chronic intractable pain for greater than 3 months and failing conservative treatments. Patient has committed and been compliant to the treatment plan and all planned follow up care. Since implantation of the intrathecal pain pump, the patient has had decreased pain and been more functional. Oral medications have been reduced including intake of oral opioids. Patient continues to do well with intrathecal therapy with decrease in pain symptoms and increase in functional status. Stopping intrathecal medications can lead to life threatening withdrawal, seizures, cardiac arrest, severe pain, and possible . Pumps that are not refilled at regular intervals can be damages and cause and need for replacement. We continually titrate dose and concentration to optimize pain relief and function. We are limited in concentration for certain drugs to safely deliver medications through the pump and stay within the recommendations from the Polyanalgesic Consensus Committee Guidelines. Depending on dose and concentration these pumps may need to be refilled sooner than 3 months as we titrate. A UDS is needed to verify patient's compliance with our office pain contract. This is ordered based off specific treatments related to chronic pain with the potential to abuse certain medications.
[2024-08-11 12:04] VITALS: BP 113/66; PULSE 69; RESP 18; O2SAT 96
[2024-08-11 12:17] VITALS: BP 104/57; PULSE 71; RESP 16; O2SAT 92
== END 2024-08-11 12:17 | disposition home or self-care (01) ==
PROVIDERS: PCP Internal Medicine Adolescent Medicine; Visit Provider Nurse Practitioner Family
DX: M51.369 Other intervertebral disc degeneration, lumbar region without mention of lumbar back pain or lower extremity pain (principal); G89.4 Chronic pain syndrome; S32.010A Wedge compression fracture of first lumbar vertebra, initial encounter for closed fracture
CPT/HCPCS: 62370

== ENCOUNTER 2024-11-03 10:59 | Day surgery (SDC) | payer MEDICARE, OTHER, SELFPAY ==
[2024-11-03 11:10] VITALS: BP 123/67; PULSE 75; RESP 18; O2SAT 96; BMI 24.0
[2024-11-03 11:19] VITALS: BP 123/71; PULSE 73; RESP 18; O2SAT 97
--- NOTE | 2024-11-03 11:21 | EXP.PM.HP ---
History of Present Illness *Admission Date: 11/03/24 *Reason for visit:: Intrathecal refill; DDD *History of present illness: [facility] Disclaimer: The information contained in this section may have been updated after the patient was seen, as this information can be updated by other users. Medical History Pacemaker Surgical History History of hysterectomy for benign disease (Unknown) TVH with anterior repair History of urostomy Hx of section Family History Other No significant family history Social History Smoking Status: Never smoker alcohol intake: never substance use type: denies use current occupational status: other Travel in the last 8 weeks?: None household members: family housing: house current occupational exposures/hazards: No caffeine: Yes Have you lived/traveled outside [place] in past 30 days?: No Contact w/someone who lives/traveled outside [place] past 30 days?: No Exposure to someone with infectious disease in past 14 days?: No Do you have a fever (greater than 100.4 F or 38 C)?: No Have you tested positive for COVID-19?: No Exposed to someone with COVID-19 in past 14 days?: No Do you have a sore throat?: No Do you have a cough?: No Do you have any weakness?: No Do you have any diarrhea?: No Are you experiencing any unusual bleeding?: No Do you have any muscle aches/pain?: No Do you have any abdominal pain?: No Are you experiencing loss of taste or smell?: No Other Medical History Have you received the Flu Vaccine for this season: No Have you received the Pneumonia Vaccine: No Review of Systems Review of Systems Review of systems:: pertinent systems reviewed and negative unless documented below Review of systems (narrative): Review of Systems: General: No recent weight changes, no fever, no sleep disturbances Respiratory: No cough, no shortness of air, no recurring pulmonary infections Cardiovascular/peripheral vascular: No chest pain, no palpitations, no edema, no shortness of breath Gastrointestinal: No new onset incontinence, normal bowel movements reported Genitourinary: No new onset incontinence Musculoskeletal: Chronic back pain Psychiatric: [Normal mood/affect] Neurological: [Denies weakness in extremities], [denies balance issues] Meds Home Medications and Allergies Home Medications ?Medication ?Instructions ?Recorded ?Confirmed ?Type diltiazem HCl 180 mg 180 mg PO DAILY High blood pressure 11/20/19 11/03/24 History capsule,extended release 24 hr morphine 5 mg/mL injection solution 0.62 mg intrathecal CONT chronic 10/14/20 11/03/24 History pain alendronate 70 mg tablet 70 mg PO WEEKLY Osteoporosis 06/19/21 11/03/24 History apixaban 2.5 mg tablet 2.5 mg PO BID Blood thinner 06/19/21 11/03/24 History ondansetron HCl 4 mg tablet 4 mg PO Q6HP PRN Nausea And 06/19/21 11/03/24 History Vomiting pantoprazole 40 mg tablet,delayed 40 mg PO DAILY GERD 06/19/21 11/03/24 History release potassium chloride 20 mEq 20 meq PO BID Supplement 06/19/21 11/03/24 History tablet,extended release(part/cryst) sertraline 50 mg tablet 50 mg PO DAILY MOOD 06/19/21 11/03/24 History metoprolol succinate 100 mg 100 mg PO DAILY BP 09/10/21 11/03/24 History tablet,extended release 24 hr conjugated estrogens 0.625 mg/gram 0.625 mg vaginal .COMPLEX 09/02/22 11/03/24 Rx vaginal cream Supplement #30 grams erythromycin 5 mg/gram (0.5 %) eye 1 applic Eye-Both . . 09/02/22 11/03/24 History ointment gabapentin 100 mg capsule 100 mg PO . . 09/02/22 11/03/24 History metronidazole 500 mg tablet 500 mg PO BID . 11/03/22 11/03/24 History fluconazole 150 mg tablet 150 mg PO ONCE . #1 tab 02/07/24 11/03/24 Rx New Prescriptions to Start Prescriptions: Allergies Allergy/AdvReac Type Severity Reaction Status Date / Time No Known Allergies Allergy Verified 01/25/24 13:40 Exam Data for Last 24 hours Vital signs and Labs for Last 24 Hours: Pulse Resp BP Pulse Ox O2 Del Method 73 18 123/71 97 Room Air 11/03/24 11:19 11/03/24 11:19 11/03/24 11:19 11/03/24 11:19 11/03/24 11:19 I & O for Last 24 hours: Intake & Output 10/31/24 11/01/24 11/02/24 11/03/24 23:59 23:59 23:59 23:59 Weight 115 lb Constitutional Constitutional: no acute distress *Routine HEENT Exam Head: Present normocephalic and atraumatic Eye: Present PERRL ENT: Present mucous membranes moist *Routine Neck Exam Neck: Present supple *Routine Respiratory Exam Respiratory: Present CTA bilaterally *Routine Cardiovascular Exam Cardiovascular: Present RRR *Routine Abdominal Exam Abdominal: Present soft *Routine Rectal Exam Rectal:: deferred *Routine Genitalia Exam Genitalia:: deferred Routine Back/Spine/Pelvis Exam Back/Spine: Present pain with flexion *Routine Skin Exam Skin: Present intact and warm *Routine Neurological Exam Neurological: Present alert and oriented X3 Routine Psychiatric Exam Psychiatric: Present normal affect and normal thought process Assessment and Plan *Assessment and plan (1) Compression fracture of L1 vertebra: Status: Acute Category: Medical Code(s): S32.010A - Wedge compression fracture of first lumbar vertebra, initial encounter for closed fracture (2) Compression fracture: Status: Acute Category: Medical Plan Patient has been instructed to contact the clinic with any concerns before the next appointment. Dr. Poon has reviewed this note and agrees with this plan of care. This note was dictated using voice recognition software and make contain errors or omissions. All injections are used with Lidocaine, Bupivacaine and dexamethasone. Occasionally urine drug screen is needed to verify patient's compliance with our office pain contract. This is ordered based off specific treatments related to chronic pain with the potential to abuse certain medications.
--- NOTE | 2024-11-03 11:22 | EXP.PAIN.PRO ---
Procedure Date: 11/03/24 Time: 11:22 Anesthesiologist:: Anya Browning APRN Complications:: None Pre-procedure Diagnosis:: Degenerative disc disease of lumbar spine, chronic back pain, compression fracture history of Post-procedure Diagnosis:: Same Indications for Procedure:: Patient is a pleasant 84-year-old female who presents today for intrathecal refill and reprogram. Today she rates her pain a 0 out of 10. She is still doing really well with her pump and denies any new falls or injuries. Patient is managed with morphine 5 mg/mL with a daily dose of 0.825 mg/day. She is prescribed gabapentin from an outside provider. Her Nithin has been reviewed and is appropriate. Physical Exam: General: Alert and oriented x3, no acute distress, pleasant and cooperative Lungs: Respirations even and unlabored, symmetrical chest expansion Eyes: PERRL Musculoskeletal: Flexion and extension of lumbar [spine] somewhat guarded secondary to pain, [antalgic gait noted] Neurological: Speech clear, no gross sensory deficit Procedure Details:: Informed consent was obtained and the risk and benefits of the procedure were explained to the patient. The patient had noninvasive monitoring placed including noninvasive blood pressure cuff and pulse oximeter. Patient's pump was interrogated. The area over the pump was cleansed with chlorhexidine as a cleansing solution. In sterile fashion the pump was accessed with a 22-gauge needle. Approximately 6.1 mls of the pump solution was removed and discarded appropriately. The pump was then refilled with 20 mL's of morphine 5 mg/mL. The needle was withdrawn and a bandage was placed over the puncture site. The infusion rate was reprogrammed and continued at its current dosage. The patient tolerated well with no complication. Plan and Disposition:: Patient tolerated the procedure well with no complications and was discharged neurologically intact. Patient will return to clinic on or before their next intrathecal refill date. We will see the patient back in the clinic at the next intrathecal refill. Patient has been instructed to contact the clinic with any concerns before the next appointment. Dr. Poon has reviewed this note and agrees with this plan of care. This note was dictated using voice recognition software and make contain errors or omissions. -- It Is medically necessary for this patient to continue to have their intrathecal pump refilled at regular intervals. This patient had an intrathecal pain pump implanted after meeting criteria of chronic intractable pain for greater than 3 months and failing conservative treatments. Patient has committed and been compliant to the treatment plan and all planned follow up care. Since implantation of the intrathecal pain pump, the patient has had decreased pain and been more functional. Oral medications have been reduced including intake of oral opioids. Patient continues to do well with intrathecal therapy with decrease in pain symptoms and increase in functional status. Stopping intrathecal medications can lead to life threatening withdrawal, seizures, cardiac arrest, severe pain, and possible . Pumps that are not refilled at regular intervals can be damages and cause and need for replacement. We continually titrate dose and concentration to optimize pain relief and function. We are limited in concentration for certain drugs to safely deliver medications through the pump and stay within the recommendations from the Polyanalgesic Consensus Committee Guidelines. Depending on dose and concentration these pumps may need to be refilled sooner than 3 months as we titrate. A UDS is needed to verify patient's compliance with our office pain contract. This is ordered based off specific treatments related to chronic pain with the potential to abuse certain medications.
[2024-11-03 11:29] VITALS: BP 106/61; PULSE 69; RESP 18; O2SAT 96
== END 2024-11-03 11:29 | disposition home or self-care (01) ==
PROVIDERS: PCP Internal Medicine Adolescent Medicine; Visit Provider Nurse Practitioner Family
DX: Z45.1 Encounter for adjustment and management of infusion pump (principal); M51.360 Other intervertebral disc degeneration, lumbar region with discogenic back pain only; G89.29 Other chronic pain; S32.010A Wedge compression fracture of first lumbar vertebra, initial encounter for closed fracture; Z87.81 Personal history of (healed) traumatic fracture; Z95.0 Presence of cardiac pacemaker; Z79.01 Long term (current) use of anticoagulants; Z79.899 Other long term (current) drug therapy; X58.XXXA Exposure to other specified factors, initial encounter
CPT/HCPCS: 62370